=== PATIENT | female | born 1950 ===

== ENCOUNTER 2024-10-14 14:52 | Emergency (ER) | payer MEDICARE, SELFPAY ==
--- OUTSIDE RECORDS SUMMARY | 2024-10-14 14:54 | XMS_ITS | Clinical Summary ---
Author Organization [facility] Address [address] [place] [address] Phone Care Team Providers Care Software Test Specialist Name Role Phone Saulo Chin MD Primary Care Provider [phone] Allergies No known active allergies Medications metoprolol tartrate (LOPRESSOR) 50 MG TabletIndicatio ns:Hypertension Take 50 mg by mouth 2 times daily. Indications: High Blood Pressure Active atorvastatin (LIPITOR) 20 MG Tablet TAKE 1 TABLET BY MOUTH ONCE DAILY 0 Active alendronate (FOSAMAX) 70 MG Tablet TAKE 1 TABLET BY MOUTH ONCE A WEEK 0 Active Cholecalciferol (Vitamin D) 125 MCG (5000 UT) CapsuleIndicati ons:Vitamin D deficiency Take 125 mcg by mouth daily. 90 Cap 1 0 Active aspirin EC 81 MG Tablet Delayed Response Take 81 mg by mouth daily. Active famotidine (PEPCID) 20 MG TabletIndicatio ns:Gastroesopha geal reflux disease, unspecified whether esophagitis present [The details of the medication are not available because there are pending changes by a home health clinician.] 90 Tablet 3 1 Active Additional Information Patient taking differently:20 mg OralDAILY, Reported on 07/31/2024 Acetaminophen 325 MG Capsule Take 325 Tablets by mouth every 4 hours as needed for Other. Active AMLODIPINE BENZOATE PO Take 10 mg by mouth daily. Active ALPRAZolam (XANAX) 0.5 MG Tablet Take 0.5 mg by mouth 3 times daily as needed for Anxiety. Active predniSONE (DELTASONE) 5 MG Tablet Take 5 mg by mouth daily. Active lisinopril (PRINIVIL, ZESTRIL) 20 MG TabletIndicatio ns:Hypertension Take 40 mg by mouth daily. Indications: High Blood Pressure 5 Active Sennosides-Docu sate Sodium (SENEXON-S PO) Take 50 Tablets by mouth 2 times daily as needed for Other. Active guaiFENesin (ROBITUSSIN) 100 MG/5ML Liquid Take 100 mg by mouth 4 times daily as needed for Cough. Active Krill Oil 500 MG Capsule Take 500 Tablets by mouth daily. Active nicotine (NICODERM CQ) 21 MG/24HR PATCH 24 HR 1 Patch by Transdermal route every 24 hours. Active ipratropium-alb uterol (DUO-NEB) 0.5-2.5 (3) MG/3ML Solution 3 mL by Nebulization route every 6 hours as needed for Shortness of Breath or Wheezing. Active Active Problems Problem Noted Date Diagnosed Date Acute hypokalemia 06/23/2020 Syncope and collapse 06/23/2020 Tobacco dependence syndrome 06/23/2020 Hyperlipemia 06/23/2020 Hypotension 06/23/2020 Elevated d-dimer 06/23/2020 Hyponatremia 06/23/2020 Hypochloremia 06/23/2020 Dehydration 06/23/2020 CKD (chronic kidney disease) stage 3, GFR 30-59 ml/min 06/23/2020 REYNALDO (acute kidney injury) 06/23/2020 Acute cystitis 06/23/2020 Age-related osteoporosis wit hout current pathological fracture 06/10/2020 Bradycardia 07/02/2015 Weakness of right hand-loss of function in digit s 07/02/2015 Diarrhea 07/02/2015 HTN (hypertension) 07/02/2015 CAD (coronary artery disease ) with stents x 2 [facility] 07/02/2015 Right wrist drop 07/02/2015 Encounters Date Type Department Care Team Description 08/18/2024 11:30 AM 4[employer] GRADE TE[employer]ER Home Care Visit [facility] [address] [place] [address] Sarahi Velazquez, PT PT - OASIS DISCHARGE 08/16/2024 10:00 AM 4[employer] GRADE TEACHER Home Care Visit [address] [address] Martine Santos, TRAFFIC CHECKER PT - HOME VISIT 08/14/2024 10:00 AM 4TH GRADE TEACHER Home Care Visit [address] [address] Martine Santos, TRAFFIC CHECKER RESCHEDULED MISSED VISIT 08/10/2024 10:00 AM 4TH GRADE TEACHER Home Care Visit [address] [address] Nikky Canseco, RN SN - DISCIPLINE DISCHARGE 08/09/2024 10:00 AM 4TH GRADE TEACHER Home Care Visit [address] [address] Martine Santos, TRAFFIC CHECKER PT - HOME VISIT 08/07/2024 1:00 PM 4TH GRADE TEACHER Home Care Visit [address] [address] Nikky Canseco, RN SN - PRIORITY VISIT 08/07/2024 10:00 AM 4TH GRADE TEACHER Home Care Visit [address] [address] Martine Santos, TRAFFIC CHECKER PT - HOME VISIT 08/07/2024 Home Care Visit [address] [address] Nikky Canseco, RN CARE CONFERENCE 08/03/2024 12:00 PM 4[employer] GRADE TEACHER Home Care Visit [address] [address] Martine Santos, TRAFFIC CHECKER PT - HOME VISIT 08/01/2024 11:00 AM 4TH GRADE TEACHER Home Care Visit [address] [address] Sarahi Velazquez, PT PT - INITIAL EVALUATION 08/01/2024 Plan of Care Documentation [address] [address] 07/31/2024 10:30 AM 4TH GRADE TEACHER [facility] [address] [place] [address] Nikky Canseco, RN SN - OASIS START OF CARE 07/31/2024 [facility] [address] [place] [address] Nikky Canesco, RN TELEPHONE ENCOUNTER from Last 3 Months Immunizations Immunization Administration Dates Next Due Albumin IV 06/23/2020,06/23/2020 Influenza, High-dose, Quadrivalent 05/13/2020 Influenza, high-dose, trivalent, PF 05/13/2020,1 08/01/2018 Pneumococcal Vaccine - 13 Valent 05/13/2020 Family History Medical History Relation Name Comments Coronary Artery Disease Father Stroke Mother cerebral hemorr major Breast Cancer Sister Ovarian Cancer Sister Relation Name Status Comments Father Mother Sister Social History Tobacco Use Types Packs/Day Years Used Date Smoking Tobacco: Every Day Cigarettes 1 30 Smokeless Tobacco: Never Tobacco Cessation:Ready to Q uit: Yes; Counseling Given: Yes Alcohol Use Standard Drinks/Week Comments No 0 (1 standard drink = 0.6 oz pur e alcohol) Sexually Active Control Partners Comments Yes Comments No Sex and Gender Information Value Date Recorded Sex Assigned at Not on file Legal Sex Female 7:38 PM 4TH [employer] TE[employer] Gender Identity Not on file Sexual Orientation Not on file Occupation Industry Job Start Date Job End Date [employer] Not on file Not on file Not on file Last Filed Vital Signs Vital Sign Reading Time Taken Comments Blood Pressure 132/70 08/18/2024 11:35 AM 4TH GRADE TEACHER Pulse 72 08/18/2024 11:35 AM 4TH GRADE TEACHER Temperature 36.5 C (97.7 F) 08/18/2024 11:35 AM 4TH GRADE TEACHER Respiratory Rate 16 08/18/2024 11:35 AM 4TH GRADE TEACHER Oxygen Saturation 97% 08/18/2024 11:35 AM 4TH GRADE TEACHER Inhaled Oxygen Concentration - - Weight 52.2 kg (115 lb) 08/18/2024 11:35 AM 4TH GRADE TEACHER Height 152.4 cm (5') 07/31/2024 11:04 AM 4TH GRADE TEACHER Body Mass Index 22.46 07/31/2024 11:04 AM 4TH GRADE TEACHER Plan of Treatment Health Maintenance Due Date Last Done Comments Hepatitis C Virus (HCV) Screening 1950 TdaP Immunization 1950 Cologuard 2002 Immunochemical Fecal Occult Blood 2002 Respiratory Syncytial Virus (RSV) Immunization (Adult) (1 - Risk 60-74 years 1-dose series) 2012 Pneumococcal Immunization (50+ years) (2 of 2 - PPSV23) 07/08/2020 05/13/2020 Zoster Immunization (2 of 2) 12/08/2022 10/13/2022 Mammogram 03/09/2024 03/09/2023, 05/29/2019 SARS-COV-2 Immunization ( - season) 2024 10/13/2022, 09/19/2020, 08/22/2020 DEXA Bone Density 03/09/2025 03/09/2023, 05/29/2019 Colonoscopy 06/26/2030 06/26/2020, 08/13/2015 Colorectal Cancer Screening 06/26/2030 06/26/2020, 08/13/2015 Pneumococcal Immunization Combined Discontinued 05/13/2020 Influenza Immunization Completed , 05/13/2020, 05/13/2020, Additional history exists Hepatitis B Immunization Aged Out No longer eligible based on patient's age to complete this topic Meningococcal Immunization (ACWY) Aged Out No longer eligible based on patient's age to complete this topic Rotavirus Immunization Aged Out No lo nger eligible based on patient's age to complete this topic Insurance MEDICARE C [employer] Advance Directives * Full Code (Latest Code Status on File) Date Activated Date Inactivated Comments 08/01/2024 7:31 PM * Full Code Date Activated Date Inactivated Comments 06/23/2020 3:31 PM 06/28/2020 4:45 PM CPR-Full T reatment: FULL ARREST: Attempt Resuscitation/CPR wit intubation and mechanical ventilation. PRE-ARREST: Use entire range of life support measures to stabilize the patient. * Full Code Date Activated Date Inactivated Comments 07/03/2015 9:10 AM 07/04/2015 6:56 PM Full Code: FULL ARREST: Attempt Resuscitation/CPR and use intubation and mechanical ventilation as indicated. PRE-ARREST: Use all measures to stabilize patient. Care Teams Software Test Specialist Relationship Specialty Start Date End Date Saulo Chin MD [address] [facility] [address] [place] [address] PCP - General Family Medicine 07/01/15
--- OUTSIDE RECORDS SUMMARY | 2024-10-14 14:54 | XMS_ITS | Data Portability ---
Author Organization [facility] Roberta Muñoz Address [address] [facility] [address] Care Team Providers Care Adjunct Sociology Professor Name Role Phone SAULO RODRIGUEZ Primary Care Provider Assessment Encounter Date Assessment Date Assessment LastModified by Organization Details LastModified Time 01/28/2023 01/28/2023 Pt is stable. She and are raising a teenage granddaughter . [email or web address] Not available 02/01/2023 17:02:16 03/22/2024 03/22/2024 Due to elevated blood pressure, lisinopril is increased from 20 to 40 mg daily. [email or web address] Not available 03/27/2024 07:49:59 08/31/2024 08/31/2024 Pt is stable and gradually improving. [email or web address] Not available 09/03/2024 08:17:49 Plan of Treatment Reminders Order Date Submit Date Provider Last Modified By Organization Details Last Modified Time Details Appointments ANY 15 2024 09:00A M Saulo Rodriguez MD Not available Not available Not available Lab CMP, serum or plasma 2022 023 [facility], [address] [facility], [facility], [place], [address], 01/29/2023 08:38:57 CBC w/ auto diff 2022 023 [facility], [address] [facility], [facility], [place], [address], 01/29/2023 08:38:58 lipid panel, serum 2022 023 [facility], [address] [facility], [facility], [place], [address], 01/29/2023 08:38:56 vitamin D, 25-hydrox y, total, serum 2022 023 [facility], [address] [facility], [facility], [place], [address], 01/29/2023 08:39:01 TSH, ultra-sen sitive, serum 2022 023 [facility], [address] [facility], [facility], [place], [address], 01/29/2023 08:39:01 Referral None recorded. Procedures None recorded. Surgeries None recorded. Imaging MAMMO, screening , bilateral [facility]23 [facility], [address] [place], [address], 03/09/2023 13:57:19 bone density 2022 023 [facility] Scheduling, [address] [place], [address], 03/10/2023 00:02:38 Medication Orders nicotine 14 mg/24 hr daily transderm al patch 2024 025 [place] [address] [place] [address] [place], [id number], 08/31/2024 16:29:43 ergocalci ferol (vitamin D2) 1,250 mcg (50,000 unit) capsule 2024 025 [facility] [address] [address] [place] [address] [address] [place], [id number], 08/31/2024 16:27:09 alendrona te 70 mg tablet 2023 024 [facility] [address] [address] [place] [address] [address] [place], [id number], 03/22/2024 16:39:30 trazodone 50 mg tablet 2023 024 [email or web address] [address] In [facility], [facility] [address], [place], [place], [id number], 05/08/2024 18:31:23 metoprolo l tartrate 50 mg tablet 2023 024 [facility] [address] In [facility], [facility] [place] [address], [place], [place], [id number], 03/22/2024 16:34:02 lisinopri l 40 mg tablet 2023 024 [facility] [address] In [facility], [facility] [place] [address], [place], [place], [id number], 03/27/2024 07:48:39 lisinopri l 20 mg tablet 2022 023 [email or web address] [facility] [address] In [facility], [facility] [place] [address], [place], [place], [id number], 03/22/2024 16:34:02 metoprolo l tartrate 50 mg tablet 2022 023 [email or web address] [facility] [address] In [facility], [facility] [place] [address], [place], [place], [id number], 02/01/2023 17:03:27 clonidine HCl 0.1 mg tablet 2022 023 [email or web address] Not available 10/29/2023 15:04:43 atorvasta tin 20 mg tablet 2022 023 [facility] [address] In [facility], [facility] [place] [address], [place], [place], [id number], 01/28/2023 14:18:51 Patient TargetsNo targets recorded. Patient Instructions Encounter Date Encounter Id Patient Instructions Last Modified By Organization Details Last Modified Time 01/28/2023 [id number] mammogram: about this test [email or web address] Not available 01/28/2023 14:20:00 learning about high blood pressure [email or web address] Not available 01/28/2023 14:16:46 preventing osteoporosis: care instructions [email or web address] Not available 01/28/2023 14:20:00 03/22/2024 [id number] insomnia: care instructions [email or web address] Not available 03/22/2024 16:44:06 Reason for Referral None Reported. Results Created Date Observation Date Name Description Value Unit Range Abnormal Flag Note LastModifiedBy Organization Detail LastModifiedTime 01/29/2001/29/2023 LIPID PANEL cholesterol, total 206 mg/dL 100-19 9 above high normal Not Available [facility] ([facility]) [address] [place], [address], 01/29/2023 08:38:56 01/29/20 23 01/29/2023 LIPID PANEL triglyceride s 376 mg/dL 0-149 above high normal Not Available [facility] ([facility]) [address] [place], [address], 01/29/2023 08:38:56 01/29/20 23 01/29/2023 LIPID PANEL HDL cholesterol 38 mg/dL >39 below low normal Not Available [facility] ([facility]) [address] [place], [address], 01/29/2023 08:38:56 01/29/20 23 01/29/2023 LIPID PANEL VLDL cholesterol nayla 64 mg/dL 5-40 above high normal Not Available [facility] ([facility]) [address] [place], [address], 01/29/2023 08:38:56 01/29/20 23 01/29/2023 LIPID PANEL LDL chol calc ([facility]) 104 mg/dL 0-99 above high normal Not Available [facility] ([facility]) [address] [place], [address], 01/29/2023 08:38:56 01/29/20 23 01/29/2023 COMP. METAB OLIC PANEL (14) glucose 105 mg/dL 70-99 above high normal Not Available [facility] ([facility]) [address] [place], [address], 01/29/2023 08:38:57 01/29/20 23 01/29/2023 COMP. METAB OLIC PANEL (14) BUN 16 mg/dL 8-27 Not Available [facility] ([facility]) [address] [place], [address], 01/29/2023 08:38:57 01/29/20 23 01/29/2023 COMP. METAB OLIC PANEL (14) creatinine 1.20 mg/dL 0.57-1 .00 above high normal Not Available [facility] ([facility]) [address] [place], [address], 01/29/2023 08:38:57 01/29/20 23 01/29/2023 COMP. METAB OLIC PANEL (14) eGFR 49 mL/mi n/1.7 3 >59 below low normal Not Available [facility] ([facility]) [address] [place], [address], 01/29/2023 08:38:57 01/29/20 23 01/29/2023 COMP. METAB OLIC PANEL (14) BUN/creatini ne ratio 13 12-28 Not Available [facility] ([facility]) [address] [place], [address], 01/29/2023 08:38:57 01/29/20 23 01/29/2023 COMP. METAB OLIC PANEL (14) sodium 140 mmol/ L 134-14 4 Not Available [facility] ([facility]) [address] [place], [address], 01/29/2023 08:38:57 01/29/20 23 01/29/2023 COMP. METAB OLIC PANEL (14) potassium 4.4 mmol/ L 3.5-5. 2 Not Available [facility] ([facility]) [address] [place], [address], 01/29/2023 08:38:57 01/29/20 23 01/29/2023 COMP. METAB OLIC PANEL (14) chloride 107 mmol/ L 96-106 above high normal Not Available [facility] ([facility]) [address] [place], [address], 01/29/2023 08:38:57 01/29/20 23 01/29/2023 COMP. METAB OLIC PANEL (14) carbon dioxide, total 18 mmol/ L 20-29 below low normal Not Available [facility] ([facility]) [address] [place], [address], 01/29/2023 08:38:57 01/29/20 23 01/29/2023 COMP. METAB OLIC PANEL (14) calcium 9.2 mg/dL 8.7-10 .3 Not Available [facility] ([facility]) [address] [place], [address], 01/29/2023 08:38:57 01/29/20 23 01/29/2023 COMP. METAB OLIC PANEL (14) protein, total 7.2 g/dL 6.0-8. 5 Not Available [facility] ([facility]) [address] [place], [address], 01/29/2023 08:38:57 01/29/20 23 01/29/2023 COMP. METAB OLIC PANEL (14) albumin 4.4 g/dL 3.9-4. 9 Ple ase note refer ence inter meaghan petit e Not Available [facility] ([facility]) [address] [place], [address], 01/29/2023 08:38:57 01/29/20 23 01/29/2023 COMP. METAB OLIC PANEL (14) globulin, total 2.8 g/dL 1.5-4. 5 Not Available [facility] ([facility]) [address] [place], [address], 01/29/2023 08:38:57 01/29/20 23 01/29/2023 COMP. METAB OLIC PANEL (14) A/G ratio 1.6 1.2-2. 2 Not Available [facility] ([facility]) [address] [place], [address], 01/29/2023 08:38:57 01/29/20 23 01/29/2023 COMP. METAB OLIC PANEL (14) bilirubin, total 0.3 mg/dL 0.0-1. 2 Not Available [facility] ([facility]) [address] [place], [address], 01/29/2023 08:38:57 01/29/20 23 01/29/2023 COMP. METAB OLIC PANEL (14) alkaline phosphatase 115 IU/L 44-121 Not Available [facility] ([facility]) [address] [place], [address], 01/29/2023 08:38:57 01/29/20 23 01/29/2023 COMP. METAB OLIC PANEL (14) AST (SGOT) 25 IU/L 0-40 Not Available [facility] ([facility]) [address] [place], [address], 01/29/2023 08:38:57 01/29/20 23 01/29/2023 COMP. METAB OLIC PANEL (14) ALT (SGPT) 14 IU/L 0-32 Not Available [facility] ([facility]) [address] [place], [address], 01/29/2023 08:38:57 01/29/20 23 01/29/2023 CBC WITH DIFFE RENTI AL/PL ATELE T WBC 7.1 x10e3 /uL 3.4-10 .8 Not Available [facility] ([facility]) [address] [facility], [place], [address], 01/29/2023 08:38:58 01/29/20 23 01/29/2023 CBC WITH DIFFE RENTI AL/PL ATELE T RBC 4.72 x10e6 /uL 3.77-5 .28 Not Available [facility] ([facility]) [address] [facility], [place], [address], 01/29/2023 08:38:58 01/29/20 23 01/29/2023 CBC WITH DIFFE RENTI AL/PL ATELE T hemoglobin 13.8 g/dL 11.1-1 5.9 Not Available [facility] ([facility]) [address] [place], [address], 01/29/2023 08:38:58 01/29/20 23 01/29/2023 CBC WITH DIFFE RENTI AL/PL ATELE T hematocrit 41.6 % 34.0-4 6.6 Not Available [facility] ([facility]) [address] [place], [address], 01/29/2023 08:38:58 01/29/20 23 01/29/2023 CBC WITH DIFFE RENTI AL/PL ATELE T MCV 88 fL 79-97 Not Available [facility] ([facility]) [address] [place], [address], 01/29/2023 08:38:58 01/29/20 23 01/29/2023 CBC WITH DIFFE RENTI AL/PL ATELE T MCH 29.2 pg 26.6-3 3.0 Not Available [facility] ([facility]) [address] [place], [address], 01/29/2023 08:38:58 01/29/20 23 01/29/2023 CBC WITH DIFFE RENTI AL/PL ATELE T MCHC 33.2 g/dL 31.5-3 5.7 Not Available [facility] ([facility]) [address] [facility], [place], [address], 01/29/2023 08:38:58 01/29/20 23 01/29/2023 CBC WITH DIFFE RENTI AL/PL ATELE T RDW 13.1 % 11.7-1 5.4 Not Available [facility] ([facility]) [address] [facility], [place], [address], 01/29/2023 08:38:58 01/29/20 23 01/29/2023 CBC WITH DIFFE RENTI AL/PL ATELE T platelets 218 x10e3 /uL 150-45 0 Not Available [facility] ([facility]) [address] [facility], [place], [address], 01/29/2023 08:38:58 01/29/20 23 01/29/2023 CBC WITH DIFFE RENTI AL/PL ATELE T neutrophils 63 % notest ab. Not Available [facility] ([facility]) [address] [facility], [place], [address], 01/29/2023 08:38:58 01/29/20 23 01/29/2023 CBC WITH DIFFE RENTI AL/PL ATELE T lymphs 28 % notest ab. Not Available [facility] ([facility]) [address] [facility], [place], [address], 01/29/2023 08:38:58 01/29/20 23 01/29/2023 CBC WITH DIFFE RENTI AL/PL ATELE T monocytes 6 % notest ab. Not Available [facility] ([facility]) [address] [facility], [place], [address], 01/29/2023 08:38:58 01/29/20 23 01/29/2023 CBC WITH DIFFE RENTI AL/PL ATELE T eos 2 % notest ab. Not Available [facility] ([facility]) [address] [facility], [place], [address], 01/29/2023 08:38:58 01/29/20 23 01/29/2023 CBC WITH DIFFE RENTI AL/PL ATELE T basos 1 % notest ab. Not Available [facility] ([facility]) [address] [facility], [place], [address], 01/29/2023 08:38:58 01/29/20 23 01/29/2023 CBC WITH DIFFE RENTI AL/PL ATELE T neutrophils (absolute) 4.5 x10e3 /uL 1.4-7. 0 Not Available [facility] ([facility]) [address] [facility], [place], [address], 01/29/2023 08:38:58 01/29/20 23 01/29/2023 CBC WITH DIFFE RENTI AL/PL ATELE T lymphs (absolute) 2.0 x10e3 /uL 0.7-3. 1 Not Available [facility] ([facility]) [address] [facility], [place], [address], 01/29/2023 08:38:58 01/29/20 23 01/29/2023 CBC WITH DIFFE RENTI AL/PL ATELE T monocytes(ab solute) 0.4 x10e3 /uL 0.1-0. 9 Not Available [facility] ([facility]) [address] [facility], [place], [address], 01/29/2023 08:38:58 01/29/20 23 01/29/2023 CBC WITH DIFFE RENTI AL/PL ATELE T eos (absolute) 0.2 x10e3 /uL 0.0-0. 4 Not Available [facility] ([facility]) [address] [facility], [place], [address], 01/29/2023 08:38:58 01/29/20 23 01/29/2023 CBC WITH DIFFE RENTI AL/PL ATELE T baso (absolute) 0.0 x10e3 /uL 0.0-0. 2 Not Available [facility] ([facility]) [address] [facility], [place], [address], 01/29/2023 08:38:58 01/29/20 23 01/29/2023 CBC WITH DIFFE RENTI AL/PL ATELE T immature granulocytes 0 % notest ab. Not Available [facility] ([facility]) [address] [facility], [place], [address], 01/29/2023 08:38:58 01/29/20 23 01/29/2023 CBC WITH DIFFE RENTI AL/PL ATELE T immature grans (abs) 0.0 x10e3 /uL 0.0-0. 1 Not Available [facility] ([facility]) [address] [facility], [place], [address], 01/29/2023 08:38:58 01/29/20 23 01/29/2023 TSH TSH 2.910 uIU/m L 0.450- 4.500 Not Available [facility] ([facility]) [address] [place], [address], 01/29/2023 08:39:00 01/29/20 23 01/29/2023 VITAM IN D, 25-HY DROXY vitamin D, 25-hydroxy 18.3 NG/mL 30.0-1 00.0 below low normal Vitam in D defic iency has been defin ed by the Insti tute of Medic ine and an Endoc rine Socie ty pract ice guide line as a level of serum 25-OH vitam in D less than 20 ng/mL (1,2) . The Endoc rine Socie ty went on to furth er defin e vitam in D insuf ficie ncy as a level betwe en 21 and 29 ng/mL (2). 1. IOM (Inst itute of Medic ine). 2010. Dieta ry refer ence herve es for calci um and D. Lyndsey tucker [place]: The Natio nal [employer] m[employer] . 2. Holic elvia [place], Albert ey [place], Manuel off-F errar i [place], et al. Evalu ation , treat ment, and preve ntion of vitam in D defic iency : an Endoc rine Socie ty clini nayla pract ice guide line. JCEM. 2010; 96(7) :1911 -30. Not Available [facility] ([facility]) [address] [facility], [place], [address], 01/29/2023 08:39:01 03/09/2003/09/2023 MAMMO , scree alexis, bilat eral No observ ation record ed. [address] [place], [address], 03/17/2023 15:32:44 03/10/20 23 03/09/2023 bone densi ty No observ ation record ed. [address] [place], [address], 03/17/2023 15:32:44 Result Notes None recorded. Problems Name Problem SNOMED Code Status Onset Date Resolution Date Notes Provider Name and Address Organization Details Recorded Time Hypertensive disorder 21103307 Active Saulo Rodriguez MD Attn: Naresh mixon,[address] [facility], [place], [address], [facility] - [facility] 6 23:48:38 Anxiety 26710817 Active Chiquis Brush MA [facility], [place] - [facility] 4 16:09:58 Dyslipidemia 556562626 Active Saulo Rodriguez MD Attn: Naresh mixon,[address] [facility], [place], [address], [place] - [facility] 5 11:17:30 Diarrhea 53837269 Active Saulo Rodriguez MD Attn: Naresh mixon,[address] [facility], [place], [address], [facility] - [facility] 6 17:55:26 Hypokalemia 75793606 Active Saulo Rodriguez MD Attn: Naresh mixon,[address] [facility], [place], [address], [place] - [facility] 6 13:23:45 Upper respiratory infection 81351798 Active Saulo Rodriguez MD Attn: Naresh mixon,[address] [facility], [place], [address], [place] - [facility] 5 13:07:49 Otalgia 12825782 Active Saulo Rodriguez MD Attn: Naresh mixon,[address] [facility], [place], [address], [place] - [facility] 6 14:05:50 Hyperkalemia 42158124 Active Saulo Rodriguez MD Attn: Naresh mixon,[address] [facility], [place], [address], [place] - [facility] 6 16:33:37 Plantar fasciitis 104408279 Active Saulo Rodriguez MD Attn: Naresh mixon,[address] [facility], [place], [address], [place] - [facility] 6 23:48:38 Problem Notes None recorded. Procedures Surgical History Date Name Laterality Status Provider Name and Address Organization Details Recorded Time Total hysterectomy completed Sarika Hathaway LPN [facility] 03/04/2018 14:11:41 Imaging Results Imaging Date Name Status LastModified by Organiz ation Details LastModified Time 03/09/2023 MAMMO, screening, bilateral completed [email or web address] Hassan [address] [place], [address], 03/17/2023 15:32:44 03/09/2023 bone density completed [email or web address] [place] [address] [place], [address], 03/17/2023 15:32:44 Procedure Notes None recorded. Medical Equipment None Reported. Allergies No known drug allergies Medications Name Sig Start Date Stop Date Status Note LastModified by Organization Details LastModified Time amoxicillin 500 mg capsule 11/18 completed Not Available Not Available Not Available sodium chloride 5 % eye drops INSTILL 1 DROP INTO BOTH EYES DAILY active Not Available Not Available No t Available bupropion HCl SR 150 mg tablet,12 hr sustained-r elease Take 1 tablet twice a day by oral route for 30 days. 06/29 completed Not Available Not Available Not Available potassium chloride ER 10 mEq capsule,ext ended release TAKE 1 CAPSULE BY MOUTH TWICE DAILY 01/28 completed Not Available Not Available Not Available clonidine HCl 0.1 mg tablet Take 1 tablet by oral route. 10/28 completed Not Available Not Available Not Available acetaminoph en 325 mg tablet TAKE 2 TABLETS BY MOUTH EVERY 4 HOURS NEEDED FOR PAIN active Not Available Not Available No t Available atorvastati n 20 mg tablet TAKE 1 TABLET BY MOUTH EVERY DAY active Not Available Not Available No t Available nicotine 14 mg/24 hr daily transdermal patch Apply 1 patch every day by transderm al route for 30 days. 2024 active Not Available Not Available Not Avai lable ipratropium 0.5 mg-albutero l 3 mg (2.5 mg base)/3 mL nebulizatio n soln TAKE 3 ML BY NEBULIZAT ION EVERY 6 HOURS NEEDED FOR WHEEZING OR SHORTNESS OF BREATH active Not Available Not Available No t Available Klor-Con 10 mEq tablet,exte nded release Take 2 tablets 4 times a day by oral route for 30 days. 11/18 completed Not Available Not Available Not Available trazodone 50 mg tablet TAKE 1 TABLET BY MOUTH EVERY DAY AT BEDTIME NEEDED FOR 30 DAYS active Not Available Not Available No t Available hydrocodone 5 mg-acetamin ophen 325 mg tablet 07/18 completed Not Available Not Available Not Available lisinopril 20 mg tablet TAKE 1 TABLET BY MOUTH EVERY DAY active Not Available Not Available No t Available prednisone 20 mg tablet 11/18 completed Not Available Not Available Not Available alendronate 70 mg tablet TAKE 1 TABLET BY MOUTH ONE TIME PER WEEK active Not Available Not Available No t Available prednisone 5 mg tablet PLEASE SEE ATTACHED FOR DETAILED DIRECTION S 08/31 completed Not Available Not Available Not Available acetaminoph en 300 mg-codeine 30 mg tablet Take 1 tablet twice a day by oral route as needed. 11/18 completed Not Available Not Available Not Available sulfamethox azole 800 mg-trimetho prim 160 mg tablet Take 1 tablet every 12 hours by oral route. active Not Available Not Available No t Available guaifenesin 100 mg/5 mL oral liquid TAKE 10 ML BY MOUTH EVERY 6 HOURS 08/31 completed Not Available Not Available Not Available amoxicillin 500 mg tablet Take 1 tablet 3 times a day by oral route. 03/04 completed Not Available Not Available Not Available dexamethaso ne sodium phosphate 0.1 % eye drops 07/18 completed Not Available Not Available Not Available Tessalon Perles 100 mg capsule Take 1 capsule 3 times a day by oral route as needed for 10 days. 03/04 completed Not Available Not Available Not Available alprazolam 0.5 mg tablet TAKE 1 TABLET BY MOUTH THREE TIMES A DAY NEEDED FOR ANXIETY active Not Available Not Available No t Available famotidine 20 mg tablet TAKE 1 TABLET BY MOUTH EVERY DAY 2024 active Not Available Not Available Not Avai lable amlodipine 10 mg tablet TAKE 1 TABLET BY MOUTH EVERY DAY active Not Available Not Available No t Available tobramycin 0.3 % eye drops 07/18 completed Not Available Not Available Not Available metoprolol tartrate 50 mg tablet TAKE 1 TABLET TWICE A DAY BY ORAL ROUTE FOR 90 DAYS. active Not Available Not Available No t Available nicotine 21 mg/[address] daily transdermal patch PLACE 1 PATCH ON THE SKIN DAILY FOR 10 DAYS 2024 active Not Available Not Available Not Avai lable omeprazole 20 mg capsule,del ayed release TAKE 1 CAPSULE BY MOUTH DAILY 01/28 completed Not Available Not Available Not Available amoxicillin 250 mg capsule 01/28 completed Not Available Not Available Not Available montelukast 10 mg tablet TAKE 1 TABLET BY MOUTH ONCE DAILY 01/28 completed Not Available Not Available Not Available hydrochloro thiazide 25 mg tablet TAKE 1 TABLET BY MOUTH ONCE DAILY 07/18 completed Not Available Not Available Not Available ergocalcife rol (vitamin D2) 1,250 mcg (50,000 unit) capsule TAKE 1 CAPSULE BY MOUTH ONE TIME PER WEEK active Not Available Not Available No t Available ibuprofen 600 mg tablet Take 1 tablet 3 times a day by oral route as needed for 10 days. 11/18 completed Not Available Not Available Not Available polyethylen e glycol 3350 17 gram/dose oral powder active Not Available Not Available Not Available albuterol sulfate HFA 90 mcg/actuati on aerosol inhaler Inhale 2 puffs 4 times a day by inhalatio n route as needed. 01/28 completed Not Available Not Available Not Available lisinopril 40 mg tablet TAKE 1 TABLET BY MOUTH EVERY DAY active Not Available Not Available No t Available ondansetron 4 mg disintegrat ing tablet 07/18 completed Not Available Not Available Not Available diazepam 5 mg tablet 06/29 completed Not Available Not Available Not Available cholestyram ine (with sugar) 4 gram powder for susp in a packet DISSOLVE IN LIQUID & TAKE 1 PACKET BY MOUTH DIRECTED TWICE DAILY WITH MEALS 01/28 completed Not Available Not Available Not Available nitrofurant oin monohydrate /macrocryst als 100 mg capsule Take 1 capsule every 12 hours by oral route for 7 days. 11/18 completed Not Available Not Available Not Available Calcium with Vitamin D 600 mg-10 mcg (400 unit) tablet Take 1 tablet twice a day by oral route. 03/22 completed Not Available Not Available Not Available Senexon-S 8.6 mg-50 mg tablet TAKE 1 TABLET BY MOUTH TWICE A DAY 08/31 completed doesn 't take Not Available Not Available Not Available Prevnar 13 (PF) 0.5 mL intramuscul ar syringe PHARMACIS T ADMINISTE RED IMMUNIZAT ION ADMINISTE RED AT TIME OF DISPENSIN G 01/28 completed Not Available Not Available Not Available Prolia 60 mg/mL subcutaneou s syringe inject 1 ml subcutane ously now, repeat [id number] 07/18 completed Not Available Not Available Not Available Chantix Starting Month Box 0.5 mg (11)-1 mg (42) tablets in dose pack take as directed 11/23 completed Not Available Not Available Not Available Fluzone High-Dose Quad 2019- (PF) 240 mcg/0.7 mL IM syringe PHARMACIS T ADMINISTE RED IMMUNIZAT ION ADMINISTE RED AT TIME OF DISPENSIN G 01/28 completed Not Available Not Available Not Available COVID-19 At-Home Test kit REFER TO MANUFACTU RER INSTRUCTI ONS INCLUDED IN PACKAGING 01/28 completed Not Available Not Available Not Available Vitals Date Recorded Body weight Body mass index (BMI) Body height Body temperature Respiratory rate Oxygen saturation Oxygen saturation in Arterial blood by Pulse oximetry Heart rate Provider Name and Address Organization Details Last Updated DateTime 3 21699.8 3 g 24.8 kg/m2 152.4 cm 98.3 [degF] 16 /min 99 % 99 % 83 /min Maritza Powers MA [facility] 3 14:11:35 Date Recorded Systolic blood pressure Diastolic blood pressure Provider Name and Address Organization Details Last Updated DateTime 01/28/2023 220 mm[Hg] 100 mm[Hg] Saulo Rodriguez MD Attn: [address] [place], [address], [facility] 01/28/2023 14:26:03 Date Recorded Body height Body mass index (BMI) Body weight Oxygen saturation Oxygen saturation in Arterial blood by Pulse oximetry Heart rate Body temperature Respiratory rate Systolic blood pressure Diastolic blood pressure Provider Name and Address Organization Details Last Updated DateTime 4 152.4 cm 24.8 kg/m2 61143.2 8 g 95 % 95 % 63 /min 98.3 [degF] 16 /min 236 mm[Hg] 100 mm[Hg] Concepcion Hawley MA [facility] 4 16:13:50 Date Recorded Body height Body mass index (BMI) Body weight Respiratory rate Body temperature Oxygen saturation Oxygen saturation in Arterial blood by Pulse oximetry Heart rate Provider Name and Address Organization Details Last Updated DateTime 5 152.4 cm 22.5 kg/m2 67676.5 2 g 16 /min 97.3 [degF] 97 % 97 % 65 /min Maritza Powers MA [facility] 5 16:00:15 Date Recorded Systolic blood pressure Diastolic blood pressure Provider Name and Address Organization Details Last Updated DateTime 08/31/2024 156 mm[Hg] 60 mm[Hg] Saulo Rodriguez MD Attn: [address]ing[address] [place], [address], [facility] 08/31/2024 16:26:40 Social History Question Answer Notes LastModified by Organizat ion Details LastModified Time Tobacco Smoking Status Former Smoker Jul 2024 Maritza Powers MA [facility], [facility] 08/31/2024 15:57:33 Do You Have An Advance Directive? No Information not available 07/18/2020 What Is Your Level Of Alcohol Consumption? None Information not available 07/18/2020 Are You Blind Or Do You Have Difficulty Seeing? Yes Glasses Information not available 03/22/2024 What Is Your Level Of Caffeine Consumption? Moderate Soda And Tea Everyday Information not available 07/18/2020 How Much Tobacco Do You Chew? None Information not available 07/18/2020 In The 14 Days Before Symptom Onset, Have You Had Close Contact With A Laboratory-confi rmed COVID-19 While That Case Was Ill? No Information not available 07/18/2020 In The 14 Days Before Symptom Onset, Have You Had Close Contact With A Person Who Is Under Investigation For COVID-19 While That Person Was Ill? No Information not available 07/18/2020 Have You Been To An Area Known To Be High Risk For COVID-19? No Information not available 07/18/2020 Are You Currently Employed? No Information not available 03/22/2024 Are You Deaf Or Do You Have Serious Difficulty Hearing? No Information not available 03/22/2024 What Type Of Diet Are You Following? GLUTENFREE Just Started In 2019 Information not available 07/18/2020 Which Illicit Or Recreational Drugs Have You Used? No Information not available 07/18/2020 Do You Or Have You Ever Used E-cigarettes Or Vape? Never Used Electronic Cigarettes Information not available 06/29/2019 Education 12 Information no t available 07/18/2020 What Is Your Occupation? Retired Information not available 07/18/2020 Are There Any Guns Present In Your Home? No Information not available 07/18/2020 Hard Of Hearing Or Deaf In One Or Both Ears? No Information not available 07/18/2020 Legally Blind In One Or Both Eyes? No Information not available 07/18/2020 Marital Status Informatio n not available 07/18/2020 What Was The Date Of Your Most Recent Tobacco Screening? 08/31/2024 Information not available 08/31/2024 How Many Children Do You Have? 3 Information not available 03/22/2024 What Is Your Current Pack Years? 30ormorepacky ears Information not available 03/22/2024 Performs Monthly Self-breast Exam? Yes Information not available 07/18/2020 What Is Your Relationship Status? Information not available 03/22/2024 Do You Use Your Seat Belt Or Car Seat Routinely? Yes Information not available 03/22/2024 Seat Belts Used Routinely Yes Information not available 07/18/2020 Smoke Alarm In Home Yes Information not available 07/18/2020 Do You Have Smoke And Carbon Monoxide Detectors In Your Home? Yes Information not available 03/22/2024 At What Age Did You Start Smoking Tobacco? 32 Information not available 03/22/2024 Are You Passively Exposed To Smoke? No Information not available 03/22/2024 Do You Or Have You Ever Used Smokeless Tobacco? Never Used Smokeless Tobacco Information not available 06/29/2019 How Much Tobacco Do You Smoke? 1 PPD [email or web address] Information not available 03/04/2018 Do You Feel Stressed (tense, Restless, Nervous, Or Anxious, Or Unable To Sleep At Night)? [id number] Information not available 03/22/2024 Do You Use Any Illicit Or Recreational Drugs? No Information not available 03/22/2024 Do You Use Sunscreen Routinely? No Information not available 07/18/2020 Has Tobacco Cessation Counseling Been Provided? No Information not available 03/22/2024 On What Date Was Tobacco Cessation Counseling Provided? 08/31/2024 Information not available 08/31/2024 How Many Years Have You Smoked Tobacco? 41 03/22/24 Information not available 03/22/2024 Do You Or Have You Ever Used Any Other Forms Of Tobacco Or Nicotine? No Information not available 03/22/2024 Sex: Female Functional Status Question Answer Note LastModified by Organizat ion Details LastModified Time Are you able to care for yourself? Yes Information not available 03/22/2024 What is your exercise level? Occasional Information not available 07/18/2020 Mental Status None recorded. Family History Relationship Description Onset Age of this Age Resolved Age Notes LastModified by Organization Details LastModified Time Mother History of cerebrovascu lar accident amcmanis Not available 16:09:58 Notes:no changes reported 07/18/20, 01/28/23, 03/22/24, 08/31/24 Medical History Condition Response Anxiety Disorder Y Hypertension Y Gynecological History Statement/Question Response Date of LMP LMP Definite Obstetrics History GPAL:G 0 P 0 0 0 0 Immunizations Vaccine Type Date Status Note Provider Nam e and Address Organization Details Recorded Time Influenza, split virus, quadrivalent, preservative 0 completed [place]Y [place], [place] - [facility] 07/18/2020 14:31:34 Pneumococcal conjugate PCV 13 0 completed [place], [place] [facility] 07/18/2020 14:31:54 COVID-19, mRNA, LNP-S, PF, 100 mcg/0.5mL dose or 50 mcg/0.25mL dose 1 completed Sara Hurley [place], [place] [facility] 08/22/2020 13:44:53 COVID-19, mRNA, LNP-S, PF, 100 mcg/0.5mL dose or 50 mcg/0.25mL dose 1 completed [place]Y [place], [place] [facility] 09/19/2020 12:04:00 Past Encounters Encounter ID Performer Location Encounter Start Date Encounter Closed Date Diagnosis/Indication Diagnosis SNOMED-CT Code Diagnosis ICD10 Code Diagnosis Note [id number] Tran Rollins [facility] [address] [place] [address] 04/08/2015 16:18:51 04/09/2015 08:02:05 Hypertensive disorder 29760632 Dyslipidemia 838245051 [facility] examination [id number] [facility] [id number] Saulo Rodriguez MD [place] [address] [place] [address] 07/17/2015 15:15:48 07/18/2015 08:08:51 Hypokalemia 30645603 E87.6 Hypertensive disorder 38 284051 I10 Diarrhea 79770214 R19.7 [id number] Maritza Powers [place] [address] [place] [address] 08/13/2015 16:04:46 08/14/2015 09:23:17 Hypertensive disorder 72675052 I10 [id number] Saulo Rodriguez MD [place] [address] [place] [address] 1 08/28/2015 16:16:35 08/29/2015 08:24:33 Hypertensive disorder 00587812 I10 Plantar fasciitis 831785 003 M72.2 [id number] Saulo Rodriguez MD [place] [address] [place] [address] 1 11/19/2016 16:20:03 11/20/2016 11:54:57 Dyslipidemia 700939913 E78.5 Hypertensive disorder 38 508704 I10 Smoker 82872483 F17.046 [id number] Saulo Rodriguez MD [place] [address] [place] [address] 11/18/2017 16:15:53 11/22/2017 13:58:36 Acute bronchitis 46529446 J20.9 [facility] examination 884910648 Z00.00 Essential hypertension 92366552 I10 Hypertensive disorder 38 174723 I10 Dyslipidemia 767107523 E 78.5 Cough 08929143 R05 [id number] MD Katya Ash [address] [place] [address] 03/04/2018 13:54:51 03/05/2018 10:58:14 Urinary symptoms 056588856 R39.9 [id number] MD Katya Ash 14 IM [address] [facility] [place] [address] 11/18/2018 15:54:50 11/21/2018 09:54:57 Hypertensive disorder 47720543 I10 Screening mammography 24 196839 Z12.31 Dyslipidemia 842397933 E 78.5 Dyspnea 663424553 R06.00 Adult heal th examination 504686820 Z00.00 Allergic rhinitis 827122 04 J30.9 Trying to give up smoking 988364841 Z72.0 [id number] MD Katya Ash [address] [place] [address] 06/29/2019 15:41:19 07/04/2019 10:24:09 Osteoporosis 84526754 M81.0 Smoker 16504000 F17.200 Gastroesop hageal reflux disease 065590756 K21.9 [id number] MD Katya Ash 14 IM [address] [place] [address] 07/18/2020 09:22:14 07/22/2020 10:32:11 History of fall 021100626 Z91.81 Anemia 093943287 D64.9 Hypokalemia 18650591 E87 .6 Hypomagnesemia 654248758 E83.42 Celiac disease 840166507 K90.0 Essential hypertension 01651613 I10 [id number] ANTONIO Bai [address] [place] [address] 08/22/2020 10:37:39 08/23/2020 08:29:55 Administration of SARS-CoV-2 antigen vaccine 893774953 Z23 [id number] ANTONIO Bai 14 IM [address] [place] [address] 09/19/2020 10:27:16 09/20/2020 15:39:58 Administration of SARS-CoV-2 antigen vaccine 020874541 Z23 [id number] MD Katya Ash 14 IM [address] [place] [address] 01/28/2023 13:52:32 02/02/2023 11:24:20 Essential hypertension 88072886 I10 Hyperlipidemia 74273789 E78.5 Screening mammography 24 063488 Z12.31 At [facility] risk of osteoporosis 914346687 Z91.89 Screening for malignant neoplasm of colon 010636131 Z12.11 done on 06-18-2020 [id number] MD Katya Ash 14 IM [address] [place] [address] 03/22/2024 15:47:37 03/28/2024 09:27:05 Tetanus diphtheria and acellular pertussis vaccination declined 2801094668 4022736 Z28.20 03/22/24 Pneumococc al vaccination declined 800214942 Z28.21 03/22/24 SARS-CoV-2 mRNA vaccine declined 4145254084 Z28.03/22/24 Essential hypertension 11654761 I10 Osteoporosis 10167626 M8 1.0 Screening for malignant neoplasm of colon 278140305 Z12.11 done on 06-18-2020 Insomnia 817607915 G47.0 0 [id number] MD Katya Ash 14 IM [address] [facility] [place] [address] 08/31/2024 15:47:50 09/04/2024 15:32:36 Vitamin D deficiency 25188994 E55.9 Ex-smoker 2058735 Z87.89 1 History of acute respiratory failure 1438169606 3152716 Z87.09 now stable since hospitaliz ation from 07-10-24 through 07-28-24 Health Concerns Section Related Observation LastModified by Organization Detai ls LastModified Time None Recorded Concern Status LastModified by Organization Details LastModified Time None Recorded Advance Directives Directive N: Payers Encounter Date Sequence Insurance Name Policy Number Policy Rojo Covered Member ID Rojo Member ID Guarantor Name 08/22/2020 2 [place] Amira K Lair [id number] Amira Lair 08/22/2020 2 [employer] (MEDICARE SUPPLEMENT) Amira Lair [id number] Amira Lair 09/19/2020 2 [place] Amira K Lair [id number] Amira Lair 09/19/2020 2 [employer] (MEDICARE SUPPLEMENT) Amira Lair [id number] Amira Lair 01/28/2023 2 [place] Amira K Lair [id number] Amira Lair 01/28/2023 2 [employer] (MEDICARE SUPPLEMENT) Amira Lair [id number] Amira Lair 03/22/2024 2 [place] Amira Jasmine Lair [id number] Amira Lair 03/22/2024 3 [employer] (MEDICARE SUPPLEMENT) PLAN G Amira Lair [id number] Amira Lair 08/31/2024 2 [place] Amira Jasmine Lair [id number] Amira Lair 08/31/2024 1 [employer] (MEDICARE REPLACEMENT/ ADVANTAGE - HMO) [id number] Amira Lair [id number] Amira Lair Notes Date Note Type Note Provider Name and Address Organization Details Recorded Time 01/28/2023 text/html First visit [facility] e June 2019. Pt presents for a regular checkup. Saulo Rodriguez MD Attn: [address]ing[address] [place], [address], [facility] 02/01/2023 17:03:31 03/22/2024 text/html Annual checkup, last visit being 14 months ago. Sauol Rodriguez MD Attn: Accounting[address] [place], [address], [place] [facility] 03/27/2024 07:52:22 08/31/2024 text/html Pt presents for followup after recent hospitalization for respiratory failure after falling ill with influenza. She has since quit smoking. Saulo Rodriguez MD Attn: [address] [place], [address], [facility] 09/03/2024 08:18:07 OBGyn Episode No OBEpisode recorded.
--- OUTSIDE RECORDS SUMMARY | 2024-10-14 14:54 | XMS_ITS | Clinical Summary ---
Author Organization [facility] Address [address] [place] [address] Care Team Providers Care Wood Milling Machine Hand Name Role Phone Saulo Chin MD Primary Care Provider [phone] Source Comments [facility],non-owned Affiliates and Associated Physician Practices is amultiple site organization consisting of ambulatory clinics and hospital sitesin [place], [place], [place] and [place]. This disclosure is being madepursuant to the Care Everywhere program and may not contain all information available regarding this patient. Last updated 18.[facility] Allergies No known active allergies Medications * Be aware that medications may not be up to date on this document. Alwaysverify current medications with the patient. Medication Sig Dispensed Refills Start Date End Date Status HYDROCHLOROTHIAZIDE PO Active atorvastatin (LIPITOR) 20 MG tablet Take 1 (one) tablet by mouth at bedtime Active Metoprolol Succinate 50 MG CS24 Take 50 mg by mouth 2 times daily Active LISINOPRIL PO Take 20 mg by mouth once daily Active Aspirin (ASPIR-81 PO) Active albuterol HFA (PROVENTIL;VENTOLIN; PROAIR) 108 (90 BASE) MCG/ACT inhalerIndications:A cute bronchitis, unspecified organism Inhale 2 puffs by mouth every 4 hours as needed for Wheezing 1 Inhaler 03/24/2018 Active benzonatate (TESSALON) 100 MG capsuleIndications:C ough Take 1 capsule by mouth 3 times daily as needed for Cough Reasons: Cough 30 capsule 03/24/2018 Active Social History Tobacco Use Types Packs/Day Years Used Date Smoking Tobacco: Every Day Cigarettes 1 20 Smokeless Tobacco: Never Sex and Gender Information Value Date Recorded Sex Assigned at Not on file Gender Identity Not on file Sexual Orientation Not on file Last Filed Vital Signs Vital Sign Reading Time Taken Comments Blood Pressure 169/71 03/29/2023 6:00 PM CDT Pulse 72 03/29/2023 4:35 PM CDT Temperature 36.4 C (97.5 F) 03/29/2023 3:04 PM CDT Respiratory Rate 18 03/29/2023 4:35 PM CDT Oxygen Saturation 95% 03/29/2023 6:16 PM CDT Inhaled Oxygen Concentration - - Weight 54.4 kg (120 lb) 03/29/2023 3:04 PM CDT Height 152.4 cm (5') 03/29/2023 3:04 PM CDT Body Mass Index 23.44 03/29/2023 3:04 PM CDT Plan of Treatment Health Maintenance Due Date Last Done Comments BONE DENSITY TESTING 1950 COLOGUARD (AGES 45-75) - COL ON CA SCREENING 1952 COLON MONITORING 1952 COLONOSCOPY - COLON CA SCREENING 1952 CT COLONOGRAPHY - COLON CA SCREENING 1952 Colorectal Cancer Screening 1952 FIT - COLON CA SCREENING 1952 FLEX SIG - COLON CA SCREENING 1950 MAMMOGRAM 1950 MEDICARE AWV 12 MONTHS 1952 HEPATITIS C SCREENING 12/06/1970 DTAP/TDAP/TD VACCINES (1 - Tdap) 12/11/1971 PNEUMOCOCCAL VACCINE 50+ (1 of 2 - PCV) 12/11/1971 LUNG CANCER SCREENING 2002 ZOSTER VACCINE (1 of 2) 2002 COVID-19 VACCINE (4 - 2023-2 5 season) 2024 10/13/2022, 09/19/2020, 08/22/2020 INFLUENZA VACCINE (#1) 2024 , 06/01/2019, 06/01/2019 DEPRESSION SCREENING 07/12/2024 Respiratory Syncytial Virus (RSV) Vaccine Pt: or over 60 yrs (1 - 1-dose 75+ series) 12/11/2027 HEPATITIS B VACCINE Aged Out No longe r eligible based on patient's age to complete this topic HIB VACCINE Aged Out No longer eligi ble based on patient's age to complete this topic HPV VACCINE Aged Out No longer eligi ble based on patient's age to complete this topic MENINGOCOCCAL (Group B) VACCINE SHARED DECISION-MAKING Aged Out No longer eligible based on patient's age to complete this topic MENINGOCOCCAL GROUPS A/C/Y/W VACCINE Aged Out No longer eligible b ased on patient's age to complete this topic Care Teams Wood Milling Machine Hand Relationship Specialty Start Date End Date Saulo Chin MD [address] [address] PCP - General Family Medicine 03/29/23
--- OUTSIDE RECORDS SUMMARY | 2024-10-14 14:55 | XMS_ITS | CONTINUITY OF CARE DOCUMENT ---
Author Name fernando king Address Unknown Organization [facility] Office Address [address] [place] [address] Phone [phone] Care Team Providers Care Occupational Analyst Name Role Phone fernando king Unavailable Unavailable
--- OUTSIDE RECORDS SUMMARY | 2024-10-14 14:55 | XMS_ITS | Clinical Summary ---
Author Organization [facility] Medical Office Building B Address [address] [place] [address] Care Team Providers Care Patient Services Specialist Name Role Phone Saulo Chin MD Primary Care Provider [phone] Allergies No known active allergies Medications metoprolol tartrate (LOPRESSOR) 50 mg immediate release tabletIndicatio ns:hypertension Take 1 tablet (50 mg total) by mouth 2 (two) times a day Active lisinopriL (PRINIVIL,ZESTR IL) 40 mg tabletIndicatio ns:hypertension Take 1 tablet (40 mg total) by mouth daily Active atorvastatin (LIPITOR) 40 mg tabletIndicatio ns:hyperlipidem ia Take 1 tablet (40 mg total) by mouth daily Active aspirin 81 mg enteric coated tabletIndicatio ns:prevention of thrombosis Take 1 tablet (81 mg total) by mouth daily Active amLODIPine (NORVASC) 10 mg tablet Take 1 tablet (10 mg total) by mouth daily 30 tablet 11 5 07/28/19 26 Active nicotine (NICODERM CQ) [address] 1 patch on the skin daily for 10 days 10 patch 5 Active ipratropium-alb uteroL (DUO-NEB) 0.5-2.5 mg/3 mL nebulizer solution Take 3 mL by nebulization every 6 (six) hours as needed for wheezing or shortness of breath 5 Active guaiFENesin (ROBITUSSIN) syrup 100 mg/5 mLIndications:C ough Take 10 mL (200 mg total) by mouth every 6 (six) hours 5 Active ALPRAZolam (XANAX) 0.5 mg tabletIndicatio ns:anxiety Take 1 tablet (0.5 mg total) by mouth 3 (three) times a day as needed for anxiety 10 tablet 5 Active senna-docusate (PERICOLACE) 8.6-50 mg Take 1 tablet by mouth 2 (two) times a day 5 Active sodium chloride (HOLDEN 128) 5 % ophthalmic solutionIndicat ions:Corneal Edema Administer 1 drop into both eyes daily 5 Active famotidine (PEPCID) 20 mg tablet Take 1 tablet (20 mg total) by mouth daily 5 Active acetaminophen (TYLENOL) 325 mg tablet Take 2 tablets (650 mg total) by mouth every 4 (four) hours as needed for pain 5 Active Active Problems Problem Noted Date Diagnosed Date Metabolic acidosis, normal anion gap (NAG) 07/12 Assessment & Plan (07/12/2024 2:47 PM CADASTRAL SURVEYOR): Bicarb 18 on 07/12. VBG with compensated metabolic acidosis. Suspect metabolic compensation secondary to respiratory status. Lactic acid as previously has resolved. Plan: Transferred to ICU for potential BiPAP trial and possible intubation Tobacco use 07/11/2024 Assessment & Plan (07/12/2024 2:44 PM CADASTRAL SURVEYOR): Chronic. Cessation since onset influenza. Plan: Recommend continue cessation Continue nicotine patch Severe sepsis 07/11/2024 Assessment & Plan (07/12/2024 2:41 PM CADASTRAL SURVEYOR): Present on admission. Risk factor of viral respiratory illness. Lactic acidosis on admission had resolved. Plan: See assessment and plan for influenza. COPD (chronic obstructive pulmonary disease) Assessment & Plan (07/12/2024 2:45 PM CADASTRAL SURVEYOR): Potential new diagnosis. Risk factors of prior tobacco use disorder. Reports not having PFTs. Suspect possible exacerbation on admission. Steroids were initially held secondary to viral flu presentation. Clinical progress worse this morning. Plan: Given trial of Solu-Medrol 60 mg IV. Continue DuoNebs q.6 hours schedule an additional p.r.n.. Continue Mucinex Now transferred to ICU Recommend outpatient PFT testing. Continue azithromycin 500 mg daily 07/10-07/12 Acute respiratory failure with hypoxia Assessment & Plan (07/12/2024 2:35 PM CADASTRAL SURVEYOR): Previously on room air. Suspected secondary to influenza a diagnosis. Concern over labor breathing over possible impending respiratory failure. Plan: Transfer to ICU Influenza A 07/10/2024 Assessment & Plan (07/12/2024 2:37 PM CADASTRAL SURVEYOR): Positive status on admission. Was 4-5 days of symptom onset. Risk factors of prior tobacco use and possible new onset COPD exacerbation. Plan: Continue Tamiflu 07/10- Continue Mucinex Add pep therapy Now transferred to ICU Trial of Solu-Medrol 60 mg given worsening distress Assessment & Plan (07/10/2024 9:59 PM CADASTRAL SURVEYOR): Patients with flu like symptoms and positive influenza A. Was given Tamiflu in ED however limited utility given today is day 5 of symptoms. Likely underlying COPD given emphysematous changes on CXR, smoking history, and significant wheezing on physical exam. Also with acute respiratory failure w/ hypoxia requiring up to 6L O2 via NC, now down to 4L. Will continue to monitor O2 requirements. Lactate as high as 7.6 (20:09 on 07/10); s/p 1L IV NS, will give resuscitative fluids WCC: 11.3 RVP: influenza A CXR: no pulmonary congestion, emphysematous changes - Titrate oxygen requirements to maintain saturations at 88-92% - duo neb q6h prn - Incentive spirometry - PT/OT - Azithromycin 500 mg od x3 days -Consider referral to pulmonary rehab on D/C CAD (coronary artery disease) 07/10/2024 Assessment & Plan (07/12/2024 2:38 PM CADASTRAL SURVEYOR): Chronic. Prior [place] status post 2 stents. Show troponins on admission reassuring. EKG on admission less likely for ischemia. Plan: Continue aspirin 81 mg daily Continue Lipitor 40 mg daily Continue Lopressor 50 mg b.I.d. Assessment & Plan (07/10/2024 10:04 PM CADASTRAL SURVEYOR): Hx [place] s/p 2x stents, uncertain dates as to when EKG done in ED without significant ST elevation or depression - continue aspirin 81 mg po od, lipitor 40 mg po od, lopressor 50 mg po bid Essential hypertension 07/10/2024 Assessment & Plan (07/12/2024 2:39 PM CADASTRAL SURVEYOR): Chronic. Vital signs reviewed on 07/12 and elevated BP. Lisinopril was held on admission. 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 Suspect due to relative hypovolemia and systemic illness. Currently producing urine; will defer additional lab/imaging diagnostics pending fluid resuscitation. - BMP daily - s/p 1 L IVF - Consider UA with microscopy, Renal/bladder US, Karie, UCr if refractory or significant REYNALDO - renally dose medications Encounters Date Type Department Care Team Description 07/10/2024 4:42 PM CADASTRAL SURVEYOR - 07/28/2024 4:41 PM CADASTRAL SURVEYOR Hospital Encounter [facility] [address] [address] Vanessa Ken MD Richards, Greg Shirley Jr., Sushila Hernandez MD Lo Bianco, Salvador, MD Masetti, Paolo, MD Acute respiratory failure, unspecified whether with hypoxia or hypercapnia (HCC) (Primary Dx); Influenza A; Chronic obstructive pulmonary disease, unspecified COPD type (HCC); Dehydration; Generalized weakness; Severe sepsis (HCC); Essential hypertension; Coronary artery disease involving [place] coronary artery of [place] heart without angina pectoris; Elevated serum creatinine; Tobacco use; Acute respiratory failure with hypoxia (HCC) Discharge Disposition: Discharge to home, home health skilled care from Last 3 Months Immunizations Immunization Administration Dates Next Due Influenza, Unspecified 03/20/2024 Surgical History Surgery Date Site/Laterality Comments TOTAL ABDOMINAL HYSTERECTOMY W/ BILATERAL SALPINGOOPHORECTOMY 07/12/1983 - 07/11/1984 Hysterectomy, total abdominal, BSO Medical History Medical History Date Comments Cardiovascular disease Coronary artery disease Hypertension Hypertension Hyperlipidemia Hyperlipidemia Smoking Family History Medical History Relation Name Comments Diabetes type II Other 1 Family hist ory of Diabetes -Type II; Hypertension Other 2 Family history of Hypertension; Stroke Other 3 Family history of Stroke; Breast cancer Sister carole Ovarian cancer Sister carole Thyroid cancer Neg Hx Relation Name Status Comments Other 1 Other 2 Other 3 Sister carole Social History Tobacco Use Types Packs/Day Years Used Date Smoking Tobacco: Every Day Cigarettes Tobacco Cessation:Ready to Q uit: Not Asked; Counseling Given: Not Answered Alcohol Use Standard Drinks/Week Comments No 0 (1 standard drink = 0.6 oz pur e alcohol) [employer] Utilities Answer Date Recorded In the past 12 months has Baileyu, oil, or water [email or web address] threatened to shut off services in your home? No 07/11/2024 Social Connection and Isolat ion Panel [NHANES] Answer Date Recorded In a typical week, how many times do you talk on the phone with family, friends, or neighbors? More than three times a week 07/11/2024 How often do you get togethe r with friends or relatives? More than three times a week 07/11/2024 How often do you attend [facility] or yazidi services? Never 07/11/2024 Do you belong to any clubs o r organizations such as yazidi groups, unions, fraternal or athletic groups, or school groups? No 07/11/2024 How often do you attend meet ings of the clubs or organizations you belong to? Never 07/11/2024 Are you , , di vorced, , never , or living with a partner? 07/11/2024 AUDIT-C Answer Date Recorded Q1: How often do you have a drink containing alc ohol? Never 07/10/2024 Average Number of Drinks Not on file 024 Frequency of Binge Drinking Not on file 06/13 Overall Financial Resource Strain (CARDIA) Answe r Date Recorded How hard is it for you to pa y for the very basics like food, housing, medical care, and heating? Not hard at all 07/11/2024 Hunger Vital Sign Answer Date Recorded Within the past 12 months, y ou worried that your food would run out before you got the money to buy more. Never true 07/11/20 24 Within the past 12 months, t he food you bought just didn't last and you didn't have money to get more. Never true 07/11/2024 PRAPARE - Transportation Answer Date Re corded In the past 12 months, has l ack of transportation kept you from medical appointments or from getting medications? No 06/13 In the past 12 months, has l ack of transportation kept you from meetings, work, or from getting things needed for daily living? No 07/11/2024 Housing Stability Vital Sign Answer Garland e Recorded In the last 12 months, was t here a time when you were not able to pay the mortgage or rent on time? No 07/11/2024 In the past 12 months, how m any times have you moved where you were living? 0 07/11/2024 At any time in the past 12 m [facility], were you homeless or living in a [place] facility (including now)? No 07/11/2024 Personal Safety Answer Date Recorded Have you ever been in or are you currently in a harmful physical or emotional relationship or is someone making you feel afraid or unsafe? Denies 07/10/2024 Comments No Sex and Gender Information Value Date Recorded Sex Assigned at Not on file Legal Sex Female 12:34 AM CADASTRAL SURVEYOR Gender Identity Not on file Sexual Orientation Not on file Obstetrics History Para Term AB IAB SAB Ectopic Multiple Livin g Live Births 3 3 3 Date Outcome GA Total Labor Labor/2nd/3rd Weight Sex Type Anes PTL Fabiana A1 A5 Name Clin Term Term Term Last Filed Vital Signs Vital Sign Reading Time Taken Comments Blood Pressure 151/62 07/28/2024 11:13 AM CADASTRAL SURVEYOR Pulse 53 07/28/2024 11:13 AM CADASTRAL SURVEYOR Temperature 37.2 C (98.9 F) 07/28/2024 11:13 AM CADASTRAL SURVEYOR Respiratory Rate 18 07/28/2024 11:1 3 AM CADASTRAL SURVEYOR Oxygen Saturation 96% 07/28/2024 11: 13 AM CADASTRAL SURVEYOR Inhaled Oxygen Concentration - - Weight 69.8 kg (153 lb 14.1 oz) 07/21/2024 4:35 PM CADASTRAL SURVEYOR Height 152.4 cm (5') 07/13/2024 9:33 AM CADASTRAL SURVEYOR Body Mass Index 30.05 07/13/2024 9:33 AM CADASTRAL SURVEYOR Plan of Treatment Health Maintenance Due Date Last Done Comments Colon Cancer Screening-Colonoscopy 1950 Depression Screening 1950 Hepatitis C Screening 1950 DTaP/Tdap/Td Vaccine (1 - Tdap) 12/11/1963 Hepatitis B Screening 1970 Zoster Vaccine (1 of 2) 2002 Well Visit 65+ 2017 Pneumococcal vaccine 65+ (2 of 2 - PPSV23) 07/08/2020 05/13/2020 Breast Cancer Screening-Mammogram 03/09/2024 023, 05/29/2019 Covid-19 Vaccine ( season) 03/12/202405/2021, 08/22/2020 Osteoporosis Screening-Bone Density Scan 03/09/2025 03/09/2023, 05/29/2019 Fall Risk Assessment 07/28/2025 07/28/2024 Influenza Vaccine Completed 03/20/2024, , 06/01/2019 Procedures Procedure Name Priority Date/Time Associated Diagnosis Comments TRIGLYCERIDES Timed 07/28/2024 5:05 AM CADASTRAL SURVEYOR DIFFERENTIAL AUTO Timed 07/27/2024 5:1 2 AM CADASTRAL SURVEYOR CBC WITH AUTO DIFFERENTIAL Timed 07/27/2024 5:12 AM CADASTRAL SURVEYOR EGFR Timed 07/26/2024 4:55 AM CADASTRAL SURVEYOR BASIC METABOLIC PANEL Timed 07/26/2024 4:55 AM CADASTRAL SURVEYOR TRIGLYCERIDES Timed 07/25/2024 5:[address] HEAD WO CONTRAST IP Routine 07/24/2024 8 :42 AM CADASTRAL SURVEYOR DIFFERENTIAL AUTO Timed 07/24/2024 4:5 3 AM CADASTRAL SURVEYOR CBC WITH AUTO DIFFERENTIAL Timed 07/24/2024 4:53 AM CADASTRAL SURVEYOR XR ABDOMEN AP 1 VIEW ED Urgent/IP Urgent 07/23/2024 9:56 PM CADASTRAL SURVEYOR POCT GLUCOSE DEVICE Routine 07/23/2024 8 :51 PM CADASTRAL SURVEYOR EGFR Timed 07/23/2024 4:47 AM CADASTRAL SURVEYOR HEMOGLOBIN A1C Routine 07/23/2024 4:47 AM CADASTRAL SURVEYOR BASIC METABOLIC PANEL Timed 07/23/2024 4:47 AM CADASTRAL SURVEYOR POCT GLUCOSE DEVICE Routine 07/23/2024 2 :29 AM CADASTRAL SURVEYOR POCT GLUCOSE DEVICE Routine 07/23/2024 1 2:25 AM CADASTRAL SURVEYOR POCT GLUCOSE DEVICE Routine 07/22/2024 1 1:44 PM CADASTRAL SURVEYOR POCT GLUCOSE DEVICE Routine 07/22/2024 7 :50 PM CADASTRAL SURVEYOR POCT GLUCOSE DEVICE Routine 07/22/2024 4 :11 PM CADASTRAL SURVEYOR POCT GLUCOSE DEVICE Routine 07/22/2024 1 1:50 AM CADASTRAL SURVEYOR POCT GLUCOSE DEVICE Routine 07/22/2024 7 :56 AM CADASTRAL SURVEYOR EGFR Routine 07/22/2024 5:51 AM CADASTRAL SURVEYOR COMPREHENSIVE METABOLIC PANEL Routine 07/22/2024 5:51 AM CADASTRAL SURVEYOR TRIGLYCERIDES Timed 07/22/2024 5:51 AM CADASTRAL SURVEYOR POCT GLUCOSE DEVICE Routine 07/22/2024 3 :58 AM CADASTRAL SURVEYOR POCT GLUCOSE DEVICE Routine 07/22/2024 1 2:03 AM CADASTRAL SURVEYOR POCT GLUCOSE DEVICE Routine 07/21/2024 7 :55 PM CADASTRAL SURVEYOR POCT GLUCOSE DEVICE Routine 07/21/2024 4 :55 PM CADASTRAL SURVEYOR POCT GLUCOSE DEVICE Routine 07/21/2024 1 1:26 AM CADASTRAL SURVEYOR POCT GLUCOSE DEVICE Routine 07/21/2024 7 :56 AM CADASTRAL SURVEYOR POCT GLUCOSE DEVICE Routine 07/21/2024 4 :02 AM CADASTRAL SURVEYOR DIFFERENTIAL AUTO Add On 07/21/2024 2:2 6 AM CADASTRAL SURVEYOR CBC WITH AUTO DIFFERENTIAL Add-On 07/21/2024 2:26 AM CADASTRAL SURVEYOR EGFR Routine 07/21/2024 2:26 AM CADASTRAL SURVEYOR COMPREHENSIVE METABOLIC PANEL Routine 07/21/2024 2:26 AM CADASTRAL SURVEYOR POCT GLUCOSE DEVICE Routine 07/20/2024 1 1:51 PM CADASTRAL SURVEYOR POCT GLUCOSE DEVICE Routine 07/20/2024 8 :00 PM CADASTRAL SURVEYOR POCT GLUCOSE DEVICE Routine 07/20/2024 4 :03 PM CADASTRAL SURVEYOR POCT GLUCOSE DEVICE Routine 07/20/2024 1 1:23 AM CADASTRAL SURVEYOR POCT GLUCOSE DEVICE Routine 07/20/2024 8 :39 AM CADASTRAL SURVEYOR EGFR Routine 07/20/2024 4:31 AM CADASTRAL SURVEYOR COMPREHENSIVE METABOLIC PANEL Routine 07/20/2024 4:31 AM CADASTRAL SURVEYOR POCT GLUCOSE DEVICE Routine 07/20/2024 4 :18 AM CADASTRAL SURVEYOR POCT GLUCOSE DEVICE Routine 07/19/2024 1 1:45 PM CADASTRAL SURVEYOR POCT GLUCOSE DEVICE Routine 07/19/2024 8 :40 PM CADASTRAL SURVEYOR POCT GLUCOSE DEVICE Routine 07/19/2024 4 :18 PM CADASTRAL SURVEYOR POCT GLUCOSE DEVICE Routine 07/19/2024 1 2:49 PM CADASTRAL SURVEYOR POCT GLUCOSE DEVICE Routine 07/19/2024 7 :52 AM CADASTRAL SURVEYOR EGFR Routine 07/19/2024 4:39 AM CADASTRAL SURVEYOR COMPREHENSIVE METABOLIC PANEL Routine 07/19/2024 4:39 AM CADASTRAL SURVEYOR TRIGLYCERIDES Timed 07/19/2024 4:39 AM CADASTRAL SURVEYOR POCT GLUCOSE DEVICE Routine 07/19/2024 4 :38 AM CADASTRAL SURVEYOR POCT GLUCOSE DEVICE Routine 07/18/2024 1 1:56 PM CADASTRAL SURVEYOR POCT GLUCOSE DEVICE Routine 07/18/2024 7 :58 PM CADASTRAL SURVEYOR POCT GLUCOSE DEVICE Routine 07/18/2024 4 :03 PM CADASTRAL SURVEYOR POCT GLUCOSE DEVICE Routine 07/18/2024 1 2:11 PM CADASTRAL SURVEYOR POCT GLUCOSE DEVICE Routine 07/18/2024 8 :58 AM CADASTRAL SURVEYOR DIFFERENTIAL AUTO Routine 07/18/2024 6:4 6 AM CADASTRAL SURVEYOR CBC WITH AUTO DIFFERENTIAL Routine 07/18/2024 6:46 AM CADASTRAL SURVEYOR EGFR Routine 07/18/2024 3:30 AM CADASTRAL SURVEYOR COMPREHENSIVE METABOLIC PANEL Routine 07/18/2024 3:30 AM CADASTRAL SURVEYOR POCT GLUCOSE DEVICE Routine 07/18/2024 3 :28 AM CADASTRAL SURVEYOR POCT GLUCOSE DEVICE Routine 07/17/2024 1 1:55 PM CADASTRAL SURVEYOR POCT GLUCOSE DEVICE Routine 07/17/2024 8 :42 PM CADASTRAL SURVEYOR POCT GLUCOSE DEVICE Routine 07/17/2024 4 :20 PM CADASTRAL SURVEYOR POCT GLUCOSE DEVICE Routine 07/17/2024 1 1:43 AM CADASTRAL SURVEYOR POCT GLUCOSE DEVICE Routine 07/17/2024 7 :22 AM CADASTRAL SURVEYOR POCT GLUCOSE DEVICE Routine 07/17/2024 3 :24 AM CADASTRAL SURVEYOR EGFR Routine 07/17/2024 3:23 AM CADASTRAL SURVEYOR COMPREHENSIVE METABOLIC PANEL Routine 07/17/2024 3:23 AM CADASTRAL SURVEYOR POCT GLUCOSE DEVICE Routine 07/16/2024 1 1:22 PM CADASTRAL SURVEYOR POCT GLUCOSE DEVICE Routine 07/16/2024 7 :18 PM CADASTRAL SURVEYOR POCT GLUCOSE DEVICE Routine 07/16/2024 5 :12 PM CADASTRAL SURVEYOR POCT GLUCOSE DEVICE Routine 07/16/2024 1 2:20 PM CADASTRAL SURVEYOR POCT GLUCOSE DEVICE Routine 07/16/2024 8 :46 AM CADASTRAL SURVEYOR POCT GLUCOSE DEVICE Routine 07/16/2024 3 :22 AM CADASTRAL SURVEYOR EGFR Routine 07/16/2024 3:22 AM CADASTRAL SURVEYOR COMPREHENSIVE METABOLIC PANEL Routine 07/16/2024 3:22 AM CADASTRAL SURVEYOR TRIGLYCERIDES Timed 07/16/2024 3:22 AM CADASTRAL SURVEYOR DEXA AXIAL SKELETON BONE DENSITY 1 OR MORE SITES Schedule Routine, Read Routine (OP Routine) 03/09/2023 12:56 PM CDT Other specified personal risk factors, not elsewhere classified SCREENING MAMMOGRAM BILATERAL W TOMI Schedule Routine, Read Routine (OP Routine) 03/09/2023 12:46 PM CDT Encounter for screening mammogram for malignant neoplasm of breast from Last 3 Months or Most Recently Relevant to Health Maintenance Results * Triglycerides (07/28/2024 5:05 AM CADASTRAL SURVEYOR) Triglycerides 114 <=149 mg/dL Comment: Interpretive Data Ages < or = 9 years Acceptable: <75 mg/dL Borderline high: 75-99 mg/dL High: >or= 100 mg/dL Ages 10 to 20 years Acceptable: <90 mg/dL Borderline high: 90-129 mg/dL High: >or= 130 mg/dL Ages > or = 20 years Desirable: <150 mg/dL Borderline high: 150-199 mg/dL High: 200-499 mg/dL Very high: >or= 499 mg/dL Literature References: 1. Expert Panel on Integrated Guidelines for Cardiovascular Health and Risk Reduction in Children and Adolescents. Pediatrics 2011;128:S213 2. NCEP Expert Panel. Circulation 2004;110:227 Current Interpretive Data was last revised on 2018. Blood 07/28/2024 5:05 AM CADASTRAL SURVEYOR 07/28/2024 5:43 AM CADASTRAL SURVEYOR Jose L Bishop MD LAB BLOOD ORDERABLES Final Result [facility] ([place]) 1 [facility] Department [place] [address] * Differential, auto (07/27/2024 5:12 AM CADASTRAL SURVEYOR) Neutrophil abs 3.6 1.5 - 6.5 K/cumm Imm gran abs 0.0 0.0 - 0.1 K/cumm [facility] ([place]) Lymphocyte abs 1.7 0.8 - 3.3 K/cumm [facility] ([place]) Monocyte abs 0.3 0.2 - 0.8 K/cumm [facility] ([place]) Eosinophil abs 0.0 0.0 - 0.5 K/cumm [facility] ([place]) Basophil abs 0.0 0.0 - 0.1 K/cumm [facility] ([place]) Neutrophil pct 63.6 % [facility] ([place]) Comment: Interpretive Data Percent cell count reference ranges are not reported, since discordance with absolute values may lead to misinterpretation of CBC data. Current Interpretive Data was last revised on 2017. Imm gran pct 0.4 % [facility] ([place]) Comment: Interpretive Data Percent cell count reference ranges are not reported, since discordance with absolute values may lead to misinterpretation of CBC data. Current Interpretive Data was last revised on 2017. Lymphocyte pct 29.3 % [facility] ([place]) Comment: Interpretive Data Percent cell count reference ranges are not reported, since discordance with absolute values may lead to misinterpretation of CBC data. Current Interpretive Data was last revised on 2017. Monocyte pct 5.8 % [facility] ([place]) Comment: Interpretive Data Percent cell count reference ranges are not reported, since discordance with absolute values may lead to misinterpretation of CBC data. Current Interpretive Data was last revised on 2017. Eosinophil pct 0.7 % [facility] ([place]) Comment: Interpretive Data Percent cell count reference ranges are not reported, since discordance with absolute values may lead to misinterpretation of CBC data. Current Interpretive Data was last revised on 2017. Basophil pct 0.2 % [facility] ([place]) Comment: Interpretive Data Percent cell count reference ranges are not reported, since discordance with absolute values may lead to misinterpretation of CBC data. Current Interpretive Data was last revised on 2017. Blood 07/27/2024 5:12 AM CADASTRAL SURVEYOR 07/27/2024 5:35 AM CADASTRAL SURVEYOR us Greg Aguilar Jr., MD LAB BLOOD ORDERABLE S Final Result Performing Organization Address [facility] Co de Phone Number [facility] ([place]) 1 [facility] [place] [address] * (ABNORMAL) CBC with auto differential (07/27/2024 5:12 AM CADASTRAL SURVEYOR) WBC 5.7 3.8 - 9.9 K/cumm Hgb 9.5(L) 11.9 - 15.5 g/dL [facility] ([place]) Hct 30.3(L) 35.6 - 45.5 % [facility] ([place]) Plt 199 150 - 400 K/cumm [facility] ([place]) MPV 10.9 9.1 - 12.3 fL [facility] ([place]) RBC 3.24(L) 3.90 - 5.20 M/cumm [facility] ([place]) MCV 93.5 81.3 - 96.4 fL [facility] ([place]) MCH 29.3 27.1 - 33.3 pg [facility] ([place]) MCHC 31.4(L) 32.3 - 35.7 g/dL [facility] ([place]) RDW CV 15.9(H) 11.1 - 14.9 % [facility] ([place]) RDW SD 54.1(H) 35.7 - 48.1 fL [facility] ([place]) NRBC abs 0.02(H) 0.00 - 0.01 K/cumm [facility] ([place]) Blood 07/27/2024 5:12 AM CADASTRAL SURVEYOR 07/27/2024 5:35 AM CADASTRAL SURVEYOR us Greg Aguilar Jr., MD LAB BLOOD ORDERABLE S Final Result [facility] ([place]) 1 [facility] Department [place] [address] * eGFR (07/26/2024 4:55 AM CADASTRAL SURVEYOR) eGFR 67 >=60 mL/min/1. 73 m2 Comment: Interpretive Data Reference Interval Normal >/= 90 mL/min/1.73m2 Mildly decreased* 60 - 89 mL/min/1.73m2 Mildly to moderately decreased 45 - 59 mL/min/1.73m2 Moderately to severely decreased 30 - 44 mL/min/1.73m2 Severely decreased 15 - 29 mL/min/1.73m2 Kidney Failure < 15 mL/min/1.73m2 *Relative to young adult level Estimated glomerular filtration rate is determined by the 2020 CKD-EPI equation recommended by the National Kidney Foundation (A Unifying Approach to GFR Estimation: Recommendations of the NKF-ASK Task Force on Reassessing the Inclusion of Race in Diagnosing Kidney Disease, JASN 2020). The CKD-EPI equation should not be used for patients with unstable renal function and has not been validated in children and those over 70. Current interpretive data was last reviewed 2021. Blood 07/26/2024 4:55 AM CADASTRAL SURVEYOR 07/26/2024 5:03 AM CADASTRAL SURVEYOR us Greg Aguilar Jr., MD LAB BLOOD ORDERABLE S Final Result Performing Organization Address City/[facility]/ZIP Co de Phone Number [facility] ([place]) 1 [facility] [place] [address] * (ABNORMAL) Basic metabolic panel (07/26/2024 4:55 AM CADASTRAL SURVEYOR) Sodium 138 135 - 145 mmol/L Potassium, pl 3.7 3.3 - 4.9 mmol/L [facility] ([place]) Chloride 108 97 - 110 mmol/L [facility] ([place]) CO2 24 22 - 32 mmol/L [facility] ([place]) Anion gap 6 2 - 15 mmol/L [facility] ([place] BUN 24 6 - 25 mg/dL [facility] ([place]) Creatinine 0.91 0.60 - 1.10 mg/dL [facility] [facility] ([place]) Glucose 87 70 - 199 mg/dL [facility] ([place]) Comment: Interpretive Data Fasting glucose >/= 126 mg/dl is diagnostic for diabetes. Fasting is defined as no caloric intake for at least 8 hours. Fasting glucose between 100 mg/dl to 125 mg/dl is diagnostic of prediabetes. In a patient with classic symptoms of hyperglycemia or hyperglycemic crisis, a random glucose >/= 200 mg/dl is diagnostic for diabetes. In the absence of unequivocal hyperglycemia, results should be confirmed by repeat testing. The classification and Diagnosis of Diabetes Diabetes Care 202; 46: S19-S40. Current interpretive data was last revised 2022. Calcium 7.8(L) 8.5 - 10.3 mg/dL [facility] ([place]) Blood 07/26/2024 4:55 AM CADASTRAL SURVEYOR 07/26/2024 5:03 AM CADASTRAL SURVEYOR Greg Aguilar Jr., MD LAB BLOOD ORDERABLE S Final Result [facility] ([place]) 1 [facility] Department of Laboratories [place], [place] [id number] * Triglycerides (07/25/2024 5:27 AM CADASTRAL SURVEYOR) Triglycerides 129 <=149 mg/dL Comment: Interpretive Data Ages < or = 9 years Acceptable: <75 mg/dL Borderline high: 75-99 mg/dL High: >or= 100 mg/dL Ages 10 to 20 years Acceptable: <90 mg/dL Borderline high: 90-129 mg/dL High: >or= 130 mg/dL Ages > or = 20 years Desirable: <150 mg/dL Borderline high: 150-199 mg/dL High: 200-499 mg/dL Very high: >or= 499 mg/dL Literature References: 1. Expert Panel on Integrated Guidelines for Cardiovascular Health and Risk Reduction in Children and Adolescents. Pediatrics 2011;128:S213 2. NCEP Expert Panel. Circulation 2004;110:227 Current Interpretive Data was last revised on 2018. Blood 07/25/2024 5:27 AM CADASTRAL SURVEYOR 07/25/2024 5:48 AM CADASTRAL SURVEYOR us Jose L Bishop MD LAB BLOOD ORDERABLES Final Result [facility] ([place]) 1 [facility] [place] [address] * CT Head WO Contrast (07/24/2024 8:42 AM CADASTRAL SURVEYOR) Anatomical Region Laterality Modality Head and Neck N/A Computed Tomogra phy 07/24/2024 9:55 AM CADASTRAL SURVEYOR Narrative 07/24/2024 9:56 AM CADASTRAL SURVEYOR EXAM DESCRIPTION: CT HEAD WO CONTRAST REASON FOR STUDY: Mental status change, unknown cause Generalized weakness and s.o.b.with mental status change TECHNIQUE: Axial images acquired through the brain without intravenous contrast. Images stored on PACS. Automated exposure control was used as a dose optimization technique for this examination. COMPARISON: None FINDINGS: BRAIN: There is no definite evidence of acute intracranial hemorrhage. There is no definite evidence of an extra-axial fluid collection. There is no significant midline shift or focal mass effect. The ventricles are normal in size and position. There is mild cortical atrophy with periventricular white matter hypoattenuation, which is likely secondary to chronic microvascular ischemic disease. CALVARIUM: No fracture. SINUSES/MASTOIDS: There is mucosal thickening of the bilateral sphenoid sinuses and right maxillary sinus. There is mild mucosal thickening of the bilateral ethmoid air cells. There is a mucous retention cysts noted in the left maxillary sinus. There is fluid noted in the right mastoid air cells. The remainder of the visualized paranasal sinuses and left mastoid air cells are grossly clear. ORBITS: No significant abnormality. OTHER: No other significant abnormality. IMPRESSION: No definite evidence of acute intracranial hemorrhage. Mild cortical atrophy with periventricular white matter hypoattenuation, which is likely secondary to chronic microvascular ischemic disease. Fluid noted in the right mastoid air cells, which may be acute or chronic. Paranasal sinus disease. THIS IS AN ELECTRONICALLY VERIFIED FINAL REPORT 07/24/2024 9:56 AM - Electronically signed by Opal Vidal D.O. PS: MARVIN Report ID: [id number] Reading Location: [id number] Procedure Note Young Opal Luis Daniel, DO - 07/24/2024 EXAM DESCRIPTION: CT HEAD WO CONTRAST REASON FOR STUDY: Mental status change, unknown cause Generalized weakness and s.o.b.with mental status change TECHNIQUE: Axial images acquired through the brain without intravenous contrast. Images stored on PACS. Automated exposure control was used asa dose optimization technique for this examination. COMPARISON: None FINDINGS: BRAIN: There is no definite evidence of acute intracranial hemorrhage. There is no definite evidence of an extra-axial fluid collection. Thereis no significant midline shift or focal mass effect. The ventricles are normalin size and position. There is mild cortical atrophy with periventricularwhite matter hypoattenuation, which is likely secondary to chronic microvascular ischemic disease. CALVARIUM: No fracture. SINUSES/MASTOIDS: There is mucosal thickening of the bilateral sphenoid sinuses and right maxillary sinus. There is mild mucosal thickening ofthe bilateral ethmoid air cells. There is a mucous retention cysts noted inthe left maxillary sinus. There is fluid noted in the right mastoid aircells. The remainder of the visualized paranasal sinuses and left mastoid aircells are grossly clear. ORBITS: No significant abnormality. OTHER: No other significant abnormality. IMPRESSION: No definite evidence of acute intracranial hemorrhage. Mild cortical atrophy with periventricular white matter hypoattenuation, which is likely secondary to chronic microvascular ischemic disease. Fluid noted in the right mastoid air cells, which may be acute orchronic. Paranasal sinus disease. THIS IS AN ELECTRONICALLY VERIFIED FINAL REPORT 07/24/2024 9:56 AM - Electronically signed by Opal Vidal D.O. PS: PS Report ID: [id number] Reading Location: [id number] Greg Aguilar Jr., MD IM CT PROCEDURES F inal Result * Differential, auto (07/24/2024 4:53 AM CADASTRAL SURVEYOR) Neutrophil abs 6.5 1.5 - 6.5 K/cumm Imm gran abs 0.1 0.0 - 0.1 K/cumm [facility] ([place]) Lymphocyte abs 1.9 0.8 - 3.3 K/cumm [facility] ([place]) Monocyte abs 0.5 0.2 - 0.8 K/cumm [facility] ([place]) Eosinophil abs 0.0 0.0 - 0.5 K/cumm [facility] ([place]) Basophil abs 0.0 0.0 - 0.1 K/cumm [facility] ([place]) Neutrophil pct 72.1 % [facility] ([place]) Comment: Interpretive Data Percent cell count reference ranges are not reported, since discordance with absolute values may lead to misinterpretation of CBC data. Current Interpretive Data was last revised on 2017. Imm gran pct 0.6 % [facility] ([place]) Comment: Interpretive Data Percent cell count reference ranges are not reported, since discordance with absolute values may lead to misinterpretation of CBC data. Current Interpretive Data was last revised on 2017. Lymphocyte pct 21.3 % [facility] ([place]) Comment: Interpretive Data Percent cell count reference ranges are not reported, since discordance with absolute values may lead to misinterpretation of CBC data. Current Interpretive Data was last revised on 2017. Monocyte pct 5.4 % [facility] ([place]) Comment: Interpretive Data Percent cell count reference ranges are not reported, since discordance with absolute values may lead to misinterpretation of CBC data. Current Interpretive Data was last revised on 2017. Eosinophil pct 0.4 % [facility] ([place]) Comment: Interpretive Data Percent cell count reference ranges are not reported, since discordance with absolute values may lead to misinterpretation of CBC data. Current Interpretive Data was last revised on 2017. Basophil pct 0.2 % [facility] ([place]) Comment: Interpretive Data Percent cell count reference ranges are not reported, since discordance with absolute values may lead to misinterpretation of CBC data. Current Interpretive Data was last revised on 2017. Blood 07/24/2024 4:53 AM CADASTRAL SURVEYOR 07/24/2024 4:58 AM CADASTRAL SURVEYOR us Greg Aguilar Jr., MD LAB BLOOD ORDERABLE S Final Result [facility] ([place]) 1 [facility] [place] [address] * (ABNORMAL) CBC with auto differential (07/24/2024 4:53 AM CADASTRAL SURVEYOR) WBC 9.1 3.8 - 9.9 K/cumm Hgb 9.7(L) 11.9 - 15.5 g/dL [facility] ([place]) Hct 30.2(L) 35.6 - 45.5 % [facility] ([place]) Plt 260 150 - 400 K/cumm [facility] ([place]) MPV 10.8 9.1 - 12.3 fL [facility] ([place]) RBC 3.30(L) 3.90 - 5.20 M/cumm [facility] ([place]) MCV 91.5 81.3 - 96.4 fL [facility] ([place]) MCH 29.4 27.1 - 33.3 pg [facility] ([place]) MCHC 32.1(L) 32.3 - 35.7 g/dL [facility] ([place]) RDW CV 15.4(H) 11.1 - 14.9 % [facility] ([place]) RDW SD 51.1(H) 35.7 - 48.1 fL [facility] ([place]) NRBC abs 0.03(H) 0.00 - 0.01 K/cumm [facility] ([place]) Blood 07/24/2024 4:53 AM CADASTRAL SURVEYOR 07/24/2024 4:58 AM CADASTRAL SURVEYOR us Greg Aguilar Jr., MD LAB BLOOD ORDERABLE S Final Result [facility] ([place]) 1 [facility] [place] [address] * XR Abdomen 1 View AP (07/23/2024 9:56 PM CADASTRAL SURVEYOR) Anatomical Region Laterality Modality Body, Abdomen N/A Computed Radiogr aphy 07/23/2024 10:4 3 PM CADASTRAL SURVEYOR Narrative 07/23/2024 10:43 PM CADASTRAL SURVEYOR EXAM DESCRIPTION: XR ABDOMEN AP 1 VIEW REASON FOR STUDY: No bowel movement since admission 13 days ago, rule out obstruction Patient has not had bowel movement for at least 13 days. TECHNIQUE: Single radiographic view of the abdomen. COMPARISON: None FINDINGS: BOWEL: Nonobstructive gas pattern. Large amount of fecal matter in the colon and rectum. SOFT TISSUES: No abnormal calcifications. LINES/TUBES: None. BONES: No acute osseous abnormality. IMPRESSION: No acute finding. Large amount of fecal matter in the colon and rectum. THIS IS AN ELECTRONICALLY VERIFIED FINAL REPORT 07/23/2024 10:43 PM - Electronically signed by Lizandro Morales M.D. KT: [place]IA Report ID: [id number] Reading Location: [id number] Procedure Note Lizandro Morales MD - 07/23/2024 EXAM DESCRIPTION: XR ABDOMEN AP 1 VIEW REASON FOR STUDY: No bowel movement since admission 13 days ago, ruleout obstruction Patient has not had bowel movement for at least 13 days. TECHNIQUE: Single radiographic view of the abdomen. COMPARISON: None FINDINGS: BOWEL: Nonobstructive gas pattern. Large amount of fecal matter in thecolon and rectum. SOFT TISSUES: No abnormal calcifications. LINES/TUBES: None. BONES: No acute osseous abnormality. IMPRESSION: No acute finding. Large amount of fecal matter in the colon and rectum. THIS IS AN ELECTRONICALLY VERIFIED FINAL REPORT 07/23/2024 10:43 PM - Electronically signed by Lizandro Morales M.D. KT: ITALIA Report ID: [id number] Reading Location: [id number] us Greg Aguilar Jr., MD IMG XR PROCEDURES F inal Result * POCT glucose (07/23/2024 8:51 PM CADASTRAL SURVEYOR) [facility] Signature Glucose, POC 141 70 - 199 mg/dL Blood 07/23/2024 8:51 PM CADASTRAL SURVEYOR 07/23/2024 8:51 PM CADASTRAL SURVEYOR us Greg Aguilar Jr., MD LAB POCT ORDERABLES - DEVICE Final Result Performing Organization Address City/[facility]/ZIP Co de Phone Number [facility] ([place]) 1 [facility] [place] [address] * eGFR (07/23/2024 4:47 AM CADASTRAL SURVEYOR) eGFR 69 >=60 mL/min/1. 73 m2 Comment: Interpretive Data Reference Interval Normal >/= 90 mL/min/1.73m2 Mildly decreased* 60 - 89 mL/min/1.73m2 Mildly to moderately decreased 45 - 59 mL/min/1.73m2 Moderately to severely decreased 30 - 44 mL/min/1.73m2 Severely decreased 15 - 29 mL/min/1.73m2 Kidney Failure < 15 mL/min/1.73m2 *Relative to young adult level Estimated glomerular filtration rate is determined by the 2020 CKD-EPI equation recommended by the National Kidney Foundation (A Unifying Approach to GFR Estimation: Recommendations of the NKF-ASK Task Force on Reassessing the Inclusion of Race in Diagnosing Kidney Disease, JASN 2020). The CKD-EPI equation should not be used for patients with unstable renal function and has not been validated in children and those over 70. Current interpretive data was last reviewed 2021. Blood 07/23/2024 4:47 AM CADASTRAL SURVEYOR 07/23/2024 5:00 AM CADASTRAL SURVEYOR us Greg Aguilar Jr., MD LAB BLOOD ORDERABLE S Final Result Performing Organization Address City/[facility]/ZIP Co de Phone Number [facility] R[facility] ([place]) 1 [facility] [place] [address] * (ABNORMAL) Hemoglobin A1c (07/23/2024 4:47 AM CADASTRAL SURVEYOR) Hgb A1C 6.2(H) 4.0 - 5.6 % Estimated Average Glucose 131 mg/dL [facility] ([place]) Comment: The ADA recommends reporting an estimated Average Glucose (eAG) with all Hemoglobin A1c results using the equation derived from a study of 507 normal and diabetic adults. Minority populations were underrepresented and children were not included. (Diabetes Care 31:2040-2144, 2008). The eAG is not equivalent to a fasting glucose. Blood 07/23/2024 4:47 AM CADASTRAL SURVEYOR 07/23/2024 4:59 AM CADASTRAL SURVEYOR us Greg Aguilar Jr., MD LAB BLOOD ORDERABLE S Final Result [facility] ([place]) 1 [facility] [place] [address] * (ABNORMAL) Basic metabolic panel (07/23/2024 4:47 AM CADASTRAL SURVEYOR) Sodium 139 135 - 145 mmol/L Potassium, pl 3.5 3.3 - 4.9 mmol/L [facility] ([place]) Chloride 108 97 - 110 mmol/L [facility] ([place]) CO2 23 22 - 32 mmol/L [facility] ([place]) Anion gap 9 2 - 15 mmol/L [facility] ([place]) BUN 35(H) 6 - 25 mg/dL [facility] ([place]) Creatinine 0.89 0.60 - 1.10 mg/dL [facility] ([place]) Glucose 133 70 - 199 mg/dL [facility] ([place]) Comment: Interpretive Data Fasting glucose >/= 126 mg/dl is diagnostic for diabetes. Fasting is defined as no caloric intake for at least 8 hours. Fasting glucose between 100 mg/dl to 125 mg/dl is diagnostic of prediabetes. In a patient with classic symptoms of hyperglycemia or hyperglycemic crisis, a random glucose >/= 200 mg/dl is diagnostic for diabetes. In the absence of unequivocal hyperglycemia, results should be confirmed by repeat testing. The classification and Diagnosis of Diabetes Diabetes Care 2021; 46: S19-S40. Current interpretive data was last revised 2022. Calcium 8.2(L) 8.5 - 10.3 mg/dL [facility] ([place]) Blood 07/23/2024 4:47 AM CADASTRAL SURVEYOR 07/23/2024 5:00 AM CADASTRAL SURVEYOR Greg Aguilar Jr., MD LAB BLOOD ORDERABLE S Final Result Performing Organization Address [facility] Co de Phone Number [facility] R[facility] ([place]) [address] [facility] [place] [address] * POCT glucose (07/23/2024 2:29 AM CADASTRAL SURVEYOR) Glucose, POC 157 70 - 199 mg/dL Comment:Glu2: RN/ Notified Blood 07/23/2024 2:29 AM CADASTRAL SURVEYOR 07/23/2024 2:29 AM CADASTRAL SURVEYOR Greg Aguilar Jr., MD LAB POCT ORDERABLES - DEVICE Final Result Performing Organization Address [facility] [[email or web address]] de Phone Number [facility] R[facility] ([place]) 1 [facility] [place] [place] [address] * POCT glucose (07/23/2024 12:25 AM CADASTRAL SURVEYOR) Glucose, POC 89 70 - 199 mg/dL Comment:Glu2: RN/ Notified Blood 07/23/2024 12:2 5 AM CADASTRAL SURVEYOR 07/23/2024 12:25 AM CADASTRAL SURVEYOR Greg Aguilar Jr., MD LAB POCT ORDERABLES - DEVICE Final Result Performing Organization Address [facility] [[email or web address]] de Phone Number [facility] ROD[facility] ([place]) 1 [facility] [place] [address] * (ABNORMAL) POCT glucose (07/22/2024 11:44 PM CADASTRAL SURVEYOR) Glucose, POC 63(L) 70 - 199 mg/dL Comment:Glu2: RN/ Notified Blood 07/22/2024 11:4 4 PM CADASTRAL SURVEYOR 07/22/2024 11:44 PM CADASTRAL SURVEYOR us Greg Aguilar Jr., MD LAB POCT ORDERABLES - DEVICE Final Result [facility] ([place]) 1 [facility] [place] [place] [address] * (ABNORMAL) POCT glucose (07/22/2024 7:50 PM CADASTRAL SURVEYOR) Glucose, POC 200(H) 70 - 199 mg/dL Comment:Glu2: RN/ Notified Blood 07/22/2024 7:50 PM CADASTRAL SURVEYOR 07/22/2024 7:50 PM CADASTRAL SURVEYOR us Greg Aguilar Jr., MD LAB POCT ORDERABLES - DEVICE Final Result Performing Organization Address [facility] Co de Phone Number [facility] ROD[facility]IG[facility] ([place]) [address] [facility] [place] [place] [address] * POCT glucose (07/22/2024 4:11 PM CADASTRAL SURVEYOR) Glucose, POC 125 70 - 199 mg/dL Blood 07/22/2024 4:11 PM CADASTRAL SURVEYOR 07/22/2024 4:11 PM CADASTRAL SURVEYOR us Greg Aguilar Jr., MD LAB POCT ORDERABLES - DEVICE Final Result Performing Organization Address City/[facility]/ZIP Co de Phone Number [facility] ROD[facility]IG[facility] ([place]) 1 [facility] [place] [address] * POCT glucose (07/22/2024 11:50 AM CADASTRAL SURVEYOR) Glucose, POC 82 70 - 199 mg/dL Blood 07/22/2024 11:5 0 AM CADASTRAL SURVEYOR 07/22/2024 11:50 AM CADASTRAL SURVEYOR Greg Aguilar Jr., MD LAB POCT ORDERABLES - DEVICE Final Result Performing Organization Address [facility]/ZIP Co de Phone Number [facility] R[facility] ([place]) 1 [facility] [place] [place] [address] * POCT glucose (07/22/2024 7:56 AM CADASTRAL SURVEYOR) Glucose, POC 80 70 - 199 mg/dL Blood 07/22/2024 7:56 AM CADASTRAL SURVEYOR 07/22/2024 7:56 AM CADASTRAL SURVEYOR us Greg Aguilar Jr., MD LAB POCT ORDERABLES - DEVICE Final Result Performing Organization Address [facility]/ZIP Co de Phone Number [facility] ([place]) 1 [place] [address] * eGFR (07/22/2024 5:51 AM CADASTRAL SURVEYOR) eGFR 65 >=60 mL/min/1. 73 m2 Comment: Interpretive Data Reference Interval Normal >/= 90 mL/min/1.73m2 Mildly decreased* 60 - 89 mL/min/1.73m2 Mildly to moderately decreased 45 - 59 mL/min/1.73m2 Moderately to severely decreased 30 - 44 mL/min/1.73m2 Severely decreased 15 - 29 mL/min/1.73m2 Kidney Failure < 15 mL/min/1.73m2 *Relative to young adult level Estimated glomerular filtration rate is determined by the 2020 CKD-EPI equation recommended by the National Kidney Foundation (A Unifying Approach to GFR Estimation: Recommendations of the NKF-ASK Task Force on Reassessing the Inclusion of Race in Diagnosing Kidney Disease, JASN 2020). The CKD-EPI equation should not be used for patients with unstable renal function and has not been validated in children and those over 70. Current interpretive data was last reviewed 2021. Blood 07/22/2024 5:51 AM CADASTRAL SURVEYOR 07/22/2024 5:56 AM CADASTRAL SURVEYOR us Iam Savage MD LAB BLOOD ORDERABLES Final Resu lt Performing Organization Address City/[facility]/ZIP Co de Phone Number [facility] ([place]) 1 [facility] [place] [address] * Triglycerides (07/22/2024 5:51 AM CADASTRAL SURVEYOR) Triglycerides 114 <=149 mg/dL Comment: Interpretive Data Ages < or = 9 years Acceptable: <75 mg/dL Borderline high: 75-99 mg/dL High: >or= 100 mg/dL Ages 10 to 20 years Acceptable: <90 mg/dL Borderline high: 90-129 mg/dL High: >or= 130 mg/dL Ages > or = 20 years Desirable: <150 mg/dL Borderline high: 150-199 mg/dL High: 200-499 mg/dL Very high: >or= 499 mg/dL Literature References: 1. Expert Panel on Integrated Guidelines for Cardiovascular Health and Risk Reduction in Children and Adolescents. Pediatrics 2011;128:S213 2. NCEP Expert Panel. Circulation 2004;110:227 Current Interpretive Data was last revised on 2018. Blood 07/22/2024 5:51 AM CADASTRAL SURVEYOR 07/22/2024 5:56 AM CADASTRAL SURVEYOR Jose L Bishop MD LAB BLOOD ORDERABLES Final Result [facility] ([place]) 1 [facility] Department [place] [address] * (ABNORMAL) Comprehensive metabolic panel (07/22/2024 5:51 AM CADASTRAL SURVEYOR) Sodium 142 135 - 145 mmol/L Potassium, pl 4.4 3.3 - 4.9 mmol/L [facility] ([place]) Chloride 106 97 - 110 mmol/L [facility] ([place]) CO2 24 22 - 32 mmol/L [facility] ([place]) Anion gap 12 2 - 15 mmol/L [facility] ([place]) BUN 41(H) 6 - 25 mg/dL [facility] ([place]) Creatinine 0.94 0.60 - 1.10 mg/dL [facility] ([place]) Glucose 114 70 - 199 mg/dL [facility] ([place]) Comment: Interpretive Data Fasting glucose >/= 126 mg/dl is diagnostic for diabetes. Fasting is defined as no caloric intake for at least 8 hours. Fasting glucose between 100 mg/dl to 125 mg/dl is diagnostic of prediabetes. In a patient with classic symptoms of hyperglycemia or hyperglycemic crisis, a random glucose >/= 200 mg/dl is diagnostic for diabetes. In the absence of unequivocal hyperglycemia, results should be confirmed by repeat testing. The classification and Diagnosis of Diabetes Diabetes Care 2021; 46: S19-S40. Current interpretive data was last revised 2022. Calcium 8.6 8.5 - 10.3 mg/dL [facility] ([place]) Bilirubin, total 0.6 0.1 - 1.2 mg/dL [facility] ([place]) Protein, pl 6.1(L) 6.5 - 8.5 g/dL [facility] ([place]) Albumin 3.1(L) 3.5 - 5.0 g/dL [facility] ([place]) Alk phos 99 40 - 130 Units/L [facility] ([place]) ALT 49(H) 7 - 45 Units/L [facility] ([place]) AST 42 10 - 45 Units/L [facility] ([place]) Comment: Hemolysis present. Results may be affected. Slightly Hemolyzed Specimen Blood 07/22/2024 5:51 AM CADASTRAL SURVEYOR 07/22/2024 5:56 AM CADASTRAL SURVEYOR us Iam Savage MD LAB BLOOD ORDERABLES Final Resu lt [facility] ([place]) 1 [facility] [employer] [place] [employer] [place] [address] * POCT glucose (07/22/2024 3:58 AM CADASTRAL SURVEYOR) [facility] Signature Glucose, POC 78 70 - 199 mg/dL Blood 07/22/2024 3:58 AM CADASTRAL SURVEYOR 07/22/2024 3:58 AM CADASTRAL SURVEYOR us Greg Aguilar Jr., MD LAB POCT ORDERABLES - DEVICE Final Result [facility] 1 [facility] [employer] [place] [place] [address] * POCT glucose (07/22/2024 12:03 AM CADASTRAL SURVEYOR) Glucose, POC 152 70 - 199 mg/dL Blood 07/22/2024 12:0 3 AM CADASTRAL SURVEYOR 07/22/2024 12:03 AM CADASTRAL SURVEYOR us Greg Aguilar Jr., MD LAB POCT ORDERABLES - DEVICE Final Result Performing Organization Address [facility] Co de Phone Number [facility] ([place]) 1 [facility] [place] [place] [address] * POCT glucose (07/21/2024 7:55 PM CADASTRAL SURVEYOR) Glucose, POC 187 70 - 199 mg/dL Blood 07/21/2024 7:55 PM CADASTRAL SURVEYOR 07/21/2024 7:55 PM CADASTRAL SURVEYOR us Greg Aguilar Jr., MD LAB POCT ORDERABLES - DEVICE Final Result Performing Organization Address [facility] de Phone Number [facility] ([place]) 1 [facility] [place] [place] [address] * POCT glucose (07/21/2024 4:55 PM CADASTRAL SURVEYOR) Glucose, POC 140 70 - 199 mg/dL Blood 07/21/2024 4:55 PM CADASTRAL SURVEYOR 07/21/2024 4:55 PM CADASTRAL SURVEYOR us Greg Aguilar Jr., MD LAB POCT ORDERABLES - DEVICE Final Result Performing Organization Address [facility] Co de Phone Number [facility] ([place]) [address] [facility] [place] [place] [address] * POCT glucose (07/21/2024 11:26 AM CADASTRAL SURVEYOR) Glucose, POC 81 70 - 199 mg/dL Blood 07/21/2024 11:2 6 AM CADASTRAL SURVEYOR 07/21/2024 11:26 AM CADASTRAL SURVEYOR us Greg Aguilar Jr., MD LAB POCT ORDERABLES - DEVICE Final Result [facility]ET RODRIG[facility] ([place]) 1 [facility] [place] [place] [address] * POCT glucose (07/21/2024 7:56 AM CADASTRAL SURVEYOR) Glucose, POC 91 70 - 199 mg/dL Blood 07/21/2024 7:56 AM CADASTRAL SURVEYOR 07/21/2024 7:56 AM CADASTRAL SURVEYOR us Greg Aguilar Jr., MD LAB POCT ORDERABLES - DEVICE Final Result Performing Organization Address City/[facility]/ZIP Co de Phone Number LIZET RODRIGUES ([place]) 1 [facility] [place] [place] [address] * POCT glucose (07/21/2024 4:02 AM CADASTRAL SURVEYOR) Glucose, POC 128 70 - 199 mg/dL Blood 07/21/2024 4:02 AM CADASTRAL SURVEYOR 07/21/2024 4:02 AM CADASTRAL SURVEYOR Greg Aguilar Jr., MD LAB POCT ORDERABLES - DEVICE Final Result LIZET RODRIGUES ([place]) 1 [facility] [place] [address] * eGFR (07/21/2024 2:26 AM CADASTRAL SURVEYOR) eGFR 70 >=60 mL/min/1. 73 m2 Comment: Interpretive Data Reference Interval Normal >/= 90 mL/min/1.73m2 Mildly decreased* 60 - 89 mL/min/1.73m2 Mildly to moderately decreased 45 - 59 mL/min/1.73m2 Moderately to severely decreased 30 - 44 mL/min/1.73m2 Severely decreased 15 - 29 mL/min/1.73m2 Kidney Failure < 15 mL/min/1.73m2 *Relative to young adult level Estimated glomerular filtration rate is determined by the 2020 CKD-EPI equation recommended by the National Kidney Foundation (A Unifying Approach to GFR Estimation: Recommendations of the NKF-ASK Task Force on Reassessing the Inclusion of Race in Diagnosing Kidney Disease, JASN 2020). The CKD-EPI equation should not be used for patients with unstable renal function and has not been validated in children and those over 70. Current interpretive data was last reviewed 2021. Blood 07/21/2024 2:26 AM CADASTRAL SURVEYOR 07/21/2024 4:06 AM CADASTRAL SURVEYOR us Iam Savage MD LAB BLOOD ORDERABLES Final Resu lt [facility] ([place]) 1 [facility] [place] [address] * (ABNORMAL) Differential, auto (07/21/2024 2:26 AM CADASTRAL SURVEYOR) Neutrophil abs 8.7(H) 1.5 - 6.5 K/cumm Imm gran abs 0.1 0.0 - 0.1 K/cumm [facility] ([place]) Lymphocyte abs 0.7(L) 0.8 - 3.3 K/cumm [facility] ([place]) Monocyte abs 0.3 0.2 - 0.8 K/cumm [facility] ([place]) Eosinophil abs 0.0 0.0 - 0.5 K/cumm [facility] ([place]) Basophil abs 0.0 0.0 - 0.1 K/cumm [facility] ([place]) Neutrophil pct 89.4 % [facility] ([place]) Comment: Interpretive Data Percent cell count reference ranges are not reported, since discordance with absolute values may lead to misinterpretation of CBC data. Current Interpretive Data was last revised on 2017. Imm gran pct 0.7 % [facility] ([place]) Comment: Interpretive Data Percent cell count reference ranges are not reported, since discordance with absolute values may lead to misinterpretation of CBC data. Current Interpretive Data was last revised on 2017. Lymphocyte pct 6.8 % [facility] ([place]) Comment: Interpretive Data Percent cell count reference ranges are not reported, since discordance with absolute values may lead to misinterpretation of CBC data. Current Interpretive Data was last revised on 2017. Monocyte pct 3.0 % [facility] ([place]) Comment: Interpretive Data Percent cell count reference ranges are not reported, since discordance with absolute values may lead to misinterpretation of CBC data. Current Interpretive Data was last revised on 2017. Eosinophil pct 0.0 % [facility] ([place]) Comment: Interpretive Data Percent cell count reference ranges are not reported, since discordance with absolute values may lead to misinterpretation of CBC data. Current Interpretive Data was last revised on 2017. Basophil pct 0.1 % [facility] ([place]) Comment: Interpretive Data Percent cell count reference ranges are not reported, since discordance with absolute values may lead to misinterpretation of CBC data. Current Interpretive Data was last revised on 2017. Blood 07/21/2024 2:26 AM CADASTRAL SURVEYOR 07/21/2024 8:49 AM CADASTRAL SURVEYOR us Greg Aguilar Jr., MD LAB BLOOD ORDERABLE S Final Result [facility] ([place]) 1 [facility] Department [place] [address] * (ABNORMAL) CBC with auto differential (07/21/2024 2:26 AM CADASTRAL SURVEYOR) WBC 9.7 3.8 - 9.9 K/cumm Hgb 10.8(L) 11.9 - 15.5 g/dL [facility] ([place]) Hct 35.0(L) 35.6 - 45.5 % [facility] ([place]) Plt 300 150 - 400 K/cumm [facility] ([place]) MPV 11.5 9.1 - 12.3 fL [facility] ([place]) RBC 3.72(L) 3.90 - 5.20 M/cumm [facility] ([place]) MCV 94.1 81.3 - 96.4 fL [facility] ([place]) MCH 29.0 27.1 - 33.3 pg [facility] ([place]) MCHC 30.9(L) 32.3 - 35.7 g/dL [facility] ([place]) RDW CV 15.6(H) 11.1 - 14.9 % [facility] ([place]) RDW SD 52.5(H) 35.7 - 48.1 fL [facility] ([place]) NRBC abs 0.00 0.00 - 0.01 K/cumm [facility] ([place]) Blood 07/21/2024 2:26 AM CADASTRAL SURVEYOR 07/21/2024 8:49 AM CADASTRAL SURVEYOR us Greg Aguilar Jr., MD LAB BLOOD ORDERABLE S Final Result [facility] ([place]) 1 [facility] Department [place] [address] * (ABNORMAL) Comprehensive metabolic panel (07/21/2024 2:26 AM CADASTRAL SURVEYOR) Sodium 141 135 - 145 mmol/L Potassium, pl 4.9 3.3 - 4.9 mmol/L [facility] ([place]) Chloride 107 97 - 110 mmol/L [facility] ([place]) CO2 23 22 - 32 mmol/L [facility] ([place]) Anion gap 12 2 - 15 mmol/L [facility] ([place]) BUN 48(H) 6 - 25 mg/dL [facility] ([place]) Creatinine 0.88 0.60 - 1.10 mg/dL [facility] ([place]) Glucose 118 70 - 199 mg/dL [facility] ([place]) Comment: Interpretive Data Fasting glucose >/= 126 mg/dl is diagnostic for diabetes. Fasting is defined as no caloric intake for at least 8 hours. Fasting glucose between 100 mg/dl to 125 mg/dl is diagnostic of prediabetes. In a patient with classic symptoms of hyperglycemia or hyperglycemic crisis, a random glucose >/= 200 mg/dl is diagnostic for diabetes. In the absence of unequivocal hyperglycemia, results should be confirmed by repeat testing. The classification and Diagnosis of Diabetes Diabetes Care 2021; 46: S19-S40. Current interpretive data was last revised 2022. Calcium 8.8 8.5 - 10.3 mg/dL [facility] ([place]) Bilirubin, total 0.5 0.1 - 1.2 mg/dL [facility] ([place]) Protein, pl 6.1(L) 6.5 - 8.5 g/dL [facility] ([place]) Albumin 3.0(L) 3.5 - 5.0 g/dL [facility] ([place]) Alk phos 99 40 - 130 Units/L [facility] ([place]) ALT 46(H) 7 - 45 Units/L [facility] ([place]) AST 36 10 - 45 Units/L [facility] ([place]) Comment:Slightly Hemolyzed S pecimen Blood 07/21/2024 2:26 AM CADASTRAL SURVEYOR 07/21/2024 4:06 AM CADASTRAL SURVEYOR us Iam Savage MD LAB BLOOD ORDERABLES Final Resu lt Performing Organization Address [facility] Co de Phone Number LIZET RODRIGUES ([place]) 1 [facility] [place] [place] [address] * POCT glucose (07/20/2024 11:51 PM CADASTRAL SURVEYOR) Glucose, POC 103 70 - 199 mg/dL Blood 07/20/2024 11:5 1 PM CADASTRAL SURVEYOR 07/20/2024 11:51 PM CADASTRAL SURVEYOR us Greg Aguilar Jr., MD LAB POCT ORDERABLES - DEVICE Final Result Performing Organization Address [facility] Co de Phone Number LIZET RODRIGUES ([place]) 1 [facility] [place] [place] [address] * POCT glucose (07/20/2024 8:00 PM CADASTRAL SURVEYOR) Glucose, POC 110 70 - 199 mg/dL Blood 07/20/2024 8:00 PM CADASTRAL SURVEYOR 07/20/2024 8:00 PM CADASTRAL SURVEYOR us Greg Aguilar Jr., MD LAB POCT ORDERABLES - DEVICE Final Result Performing Organization Address [facility] Co de Phone Number LIZET RODRIGUES ([place]) 1 [place] [address] * POCT glucose (07/20/2024 4:03 PM CADASTRAL SURVEYOR) Glucose, POC 188 70 - 199 mg/dL Blood 07/20/2024 4:03 PM CADASTRAL SURVEYOR 07/20/2024 4:03 PM CADASTRAL SURVEYOR us Greg Aguilar Jr., MD LAB POCT ORDERABLES - DEVICE Final Result LIZET RODRIGUES ([place]) 1 [place] [address] * POCT glucose (07/20/2024 11:23 AM CADASTRAL SURVEYOR) Glucose, POC 115 70 - 199 mg/dL Blood 07/20/2024 11:2 3 AM CADASTRAL SURVEYOR 07/20/2024 11:23 AM CADASTRAL SURVEYOR us Iam Savage MD LAB POCT ORDERABLES - DEVICE Fi nal Result LIZET RODRIGUES ([place]) 1 [facility] [place] [place] [address] * POCT glucose (07/20/2024 8:39 AM CADASTRAL SURVEYOR) Glucose, POC 89 70 - 199 mg/dL Blood 07/20/2024 8:39 AM CADASTRAL SURVEYOR 07/20/2024 8:39 AM CADASTRAL SURVEYOR us Iam Savage MD LAB POCT ORDERABLES - DEVICE Fi nal Result LIZET RODRIGUES ([place]) 1 [place] [address] * eGFR (07/20/2024 4:31 AM CADASTRAL SURVEYOR) Pathologist [facility] eGFR 67 >=60 mL/min/1. 73 m2 Comment: Interpretive Data Reference Interval Normal >/= 90 mL/min/1.73m2 Mildly decreased* 60 - 89 mL/min/1.73m2 Mildly to moderately decreased 45 - 59 mL/min/1.73m2 Moderately to severely decreased 30 - 44 mL/min/1.73m2 Severely decreased 15 - 29 mL/min/1.73m2 Kidney Failure < 15 mL/min/1.73m2 *Relative to young adult level Estimated glomerular filtration rate is determined by the 2020 CKD-EPI equation recommended by the National Kidney Foundation (A Unifying Approach to GFR Estimation: Recommendations of the NKF-ASK Task Force on Reassessing the Inclusion of Race in Diagnosing Kidney Disease, JASN 2020). The CKD-EPI equation should not be used for patients with unstable renal function and has not been validated in children and those over 70. Current interpretive data was last reviewed 2021. Blood 07/20/2024 4:31 AM CADASTRAL SURVEYOR 07/20/2024 4:36 AM CADASTRAL SURVEYOR us Iam Savage MD LAB BLOOD ORDERABLES Final Resu lt [facility] ([place]) 1 [facility] [place] [address] * (ABNORMAL) Comprehensive metabolic panel (07/20/2024 4:31 AM CADASTRAL SURVEYOR) Sodium 144 135 - 145 mmol/L Potassium, pl 5.1(H) 3.3 - 4.9 mmol/L [facility] ([place]) Chloride 105 97 - 110 mmol/L [facility] ([place]) CO2 27 22 - 32 mmol/L [facility] ([place]) Anion gap 12 2 - 15 mmol/L [facility] ([place]) BUN 51(H) 6 - 25 mg/dL [facility] ([place]) Creatinine 0.92 0.60 - 1.10 mg/dL [facility] ([place]) Glucose 113 70 - 199 mg/dL [facility] ([place]) Comment: Interpretive Data Fasting glucose >/= 126 mg/dl is diagnostic for diabetes. Fasting is defined as no caloric intake for at least 8 hours. Fasting glucose between 100 mg/dl to 125 mg/dl is diagnostic of prediabetes. In a patient with classic symptoms of hyperglycemia or hyperglycemic crisis, a random glucose >/= 200 mg/dl is diagnostic for diabetes. In the absence of unequivocal hyperglycemia, results should be confirmed by repeat testing. The classification and Diagnosis of Diabetes Diabetes Care 2021; 46: S19-S40. Current interpretive data was last revised 2022. Calcium 9.2 8.5 - 10.3 mg/dL [facility] ([place]) Bilirubin, total 0.5 0.1 - 1.2 mg/dL [facility] ([place]) Protein, pl 7.2 6.5 - 8.5 g/dL [facility] ([place]) Albumin 3.5 3.5 - 5.0 g/dL [facility] ([place]) Alk phos 113 40 - 130 Units/L [facility] ([place]) ALT 54(H) 7 - 45 Units/L [facility] ([place]) AST 41 10 - 45 Units/L [facility] ([place]) Blood 07/20/2024 4:31 AM CADASTRAL SURVEYOR 07/20/2024 4:36 AM CADASTRAL SURVEYOR Iam Savage MD LAB BLOOD ORDERABLES Final Resu lt Performing Organization Address City/[facility]/ZIP Co de Phone Number LIZET RODRIGUES ([place]) 1 [facility] [employer] [place] [employer] [place] [address] * POCT glucose (07/20/2024 4:18 AM CADASTRAL SURVEYOR) Glucose, POC 98 70 - 199 mg/dL Blood 07/20/2024 4:18 AM CADASTRAL SURVEYOR 07/20/2024 4:18 AM CADASTRAL SURVEYOR us Iam Savage MD LAB POCT ORDERABLES - DEVICE Fi nal Result Performing Organization Address City/[facility]/ZIP Co de Phone Number LIZET RODRIGUES ([place]) 1 [facility] [employer] [place] [employer] [place] [address] * POCT glucose (07/19/2024 11:45 PM CADASTRAL SURVEYOR) Glucose, POC 86 70 - 199 mg/dL Blood 07/19/2024 11:4 5 PM CADASTRAL SURVEYOR 07/19/2024 11:45 PM CADASTRAL SURVEYOR us Iam Savage MD LAB POCT ORDERABLES - DEVICE Fi nal Result LIZET RODRIGUES ([place]) 1 [facility] [place] [employer] [place] [address] * POCT glucose (07/19/2024 8:40 PM CADASTRAL SURVEYOR) Glucose, POC 122 70 - 199 mg/dL Blood 07/19/2024 8:40 PM CADASTRAL SURVEYOR 07/19/2024 8:40 PM CADASTRAL SURVEYOR us Iam Savage MD LAB POCT ORDERABLES - DEVICE Fi nal Result Performing Organization Address [facility] Co de Phone Number LIZET RODRIGUES ([place]) 1 [facility] [place] [employer] [place] [address] * POCT glucose (07/19/2024 4:18 PM CADASTRAL SURVEYOR) Glucose, POC 120 70 - 199 mg/dL Blood 07/19/2024 4:18 PM CADASTRAL SURVEYOR 07/19/2024 4:18 PM CADASTRAL SURVEYOR us Iam Savage MD LAB POCT ORDERABLES - DEVICE Fi nal Result Performing Organization Address [facility]/ZIP Co de Phone Number LIZET RODRIGUES ([place]) 1 [facility] [place] [place] [address] * POCT glucose (07/19/2024 12:49 PM CADASTRAL SURVEYOR) Glucose, POC 125 70 - 199 mg/dL Blood 07/19/2024 12:4 9 PM CADASTRAL SURVEYOR 07/19/2024 12:49 PM CADASTRAL SURVEYOR us Iam Savage MD LAB POCT ORDERABLES - DEVICE Fi nal Result LIZET RODRIGUES ([place]) 1 [facility] [place] [address] * POCT glucose (07/19/2024 7:52 AM CADASTRAL SURVEYOR) Glucose, POC 160 70 - 199 mg/dL Blood 07/19/2024 7:52 AM CADASTRAL SURVEYOR 07/19/2024 7:52 AM CADASTRAL SURVEYOR us Iam Savage MD LAB POCT ORDERABLES - DEVICE Fi nal Result Performing Organization Address City/[facility]/ZIP Co de Phone Number LIZET RODRIGUES ([place]) 1 [facility] [employer] [place] [address] * eGFR (07/19/2024 4:39 AM CADASTRAL SURVEYOR) eGFR 68 >=60 mL/min/1. 73 m2 Comment: Interpretive Data Reference Interval Normal >/= 90 mL/min/1.73m2 Mildly decreased* 60 - 89 mL/min/1.73m2 Mildly to moderately decreased 45 - 59 mL/min/1.73m2 Moderately to severely decreased 30 - 44 mL/min/1.73m2 Severely decreased 15 - 29 mL/min/1.73m2 Kidney Failure < 15 mL/min/1.73m2 *Relative to young adult level Estimated glomerular filtration rate is determined by the 2020 CKD-EPI equation recommended by the National Kidney Foundation (A Unifying Approach to GFR Estimation: Recommendations of the NKF-ASK Task Force on Reassessing the Inclusion of Race in Diagnosing Kidney Disease, JASN 2020). The CKD-EPI equation should not be used for patients with unstable renal function and has not been validated in children and those over 70. Current interpretive data was last reviewed 2021. Blood 07/19/2024 4:39 AM CADASTRAL SURVEYOR 07/19/2024 4:45 AM CADASTRAL SURVEYOR us Iam Savage MD LAB BLOOD ORDERABLES Final Resu lt LIZET RODRIGUES ([place]) 1 [facility] [place] [address] * Triglycerides (07/19/2024 4:39 AM CADASTRAL SURVEYOR) Triglycerides 104 <=149 mg/dL Comment: Interpretive Data Ages < or = 9 years Acceptable: <75 mg/dL Borderline high: 75-99 mg/dL High: >or= 100 mg/dL Ages 10 to 20 years Acceptable: <90 mg/dL Borderline high: 90-129 mg/dL High: >or= 130 mg/dL Ages > or = 20 years Desirable: <150 mg/dL Borderline high: 150-199 mg/dL High: 200-499 mg/dL Very high: >or= 499 mg/dL Literature References: 1. Expert Panel on Integrated Guidelines for Cardiovascular Health and Risk Reduction in Children and Adolescents. Pediatrics 2011;128:S213 2. NCEP Expert Panel. Circulation 2004;110:227 Current Interpretive Data was last revised on 2018. Blood 07/19/2024 4:39 AM CADASTRAL SURVEYOR 07/19/2024 4:45 AM CADASTRAL SURVEYOR Jose L Bishop MD LAB BLOOD ORDERABLES Final Result [facility] ([place]) 1 [facility] [place] [address] * (ABNORMAL) Comprehensive metabolic panel (07/19/2024 4:39 AM CADASTRAL SURVEYOR) Sodium 140 135 - 145 mmol/L Potassium, pl 5.5(H) 3.3 - 4.9 mmol/L [facility] ([place]) Chloride 105 97 - 110 mmol/L [facility] ([place]) CO2 26 22 - 32 mmol/L [facility] ([place]) Anion gap 9 2 - 15 mmol/L [facility] ([place]) BUN 63(H) 6 - 25 mg/dL [facility] ([place]) Creatinine 0.90 0.60 - 1.10 mg/dL [facility] ([place]) Glucose 200(H) 70 - 199 mg/dL [facility] ([place]) Comment: Interpretive Data Fasting glucose >/= 126 mg/dl is diagnostic for diabetes. Fasting is defined as no caloric intake for at least 8 hours. Fasting glucose between 100 mg/dl to 125 mg/dl is diagnostic of prediabetes. In a patient with classic symptoms of hyperglycemia or hyperglycemic crisis, a random glucose >/= 200 mg/dl is diagnostic for diabetes. In the absence of unequivocal hyperglycemia, results should be confirmed by repeat testing. The classification and Diagnosis of Diabetes Diabetes Care 2021; 46: S19-S40. Current interpretive data was last revised 2022. Calcium 8.1(L) 8.5 - 10.3 mg/dL [facility] ([place]) Bilirubin, total 0.2 0.1 - 1.2 mg/dL [facility] ([place]) Protein, pl 6.2(L) 6.5 - 8.5 g/dL [facility] ([place]) Albumin 3.0(L) 3.5 - 5.0 g/dL [facility] ([place]) Alk phos 100 40 - 130 Units/L [facility] ([place]) ALT 46(H) 7 - 45 Units/L [facility] ([place]) AST 33 10 - 45 Units/L [facility] ([place]) Comment:Slightly Hemolyzed S pecimen Blood 07/19/2024 4:39 AM CADASTRAL SURVEYOR 07/19/2024 4:45 AM CADASTRAL SURVEYOR us Iam Savage MD LAB BLOOD ORDERABLES Final Resu lt Performing Organization Address City/[facility]/ZIP Co de Phone Number LIZET RODRIGUES ([place]) 1 [facility] [place] [employer] [place] [address] * POCT glucose (07/19/2024 4:38 AM CADASTRAL SURVEYOR) Glucose, POC 186 70 - 199 mg/dL Blood 07/19/2024 4:38 AM CADASTRAL SURVEYOR 07/19/2024 4:38 AM CADASTRAL SURVEYOR us Iam Savage MD LAB POCT ORDERABLES - DEVICE Fi nal Result Performing Organization Address City/[facility]/ZIP Co de Phone Number LIZET [facility] ([place]) 1 [facility] [place] [employer] [place] [address] * POCT glucose (07/18/2024 11:56 PM CADASTRAL SURVEYOR) Glucose, POC 176 70 - 199 mg/dL Blood 07/18/2024 11:5 6 PM CADASTRAL SURVEYOR 07/18/2024 11:56 PM CADASTRAL SURVEYOR us Iam Savage MD LAB POCT ORDERABLES - DEVICE Fi nal Result Performing Organization Address City/[facility]/ZIP Co de Phone Number [facility] ([place]) 1 [facility] [place] [employer] [place] [address] * POCT glucose (07/18/2024 7:58 PM CADASTRAL SURVEYOR) Glucose, POC 165 70 - 199 mg/dL Blood 07/18/2024 7:58 PM CADASTRAL SURVEYOR 07/18/2024 7:58 PM CADASTRAL SURVEYOR us Iam Savage MD LAB POCT ORDERABLES - DEVICE Fi nal Result Performing Organization Address [facility] Co de Phone Number [facility] ([place]) 1 [facility] [place] [place] [address] * POCT glucose (07/18/2024 4:03 PM CADASTRAL SURVEYOR) Glucose, POC 195 70 - 199 mg/dL Blood 07/18/2024 4:03 PM CADASTRAL SURVEYOR 07/18/2024 4:03 PM CADASTRAL SURVEYOR us Iam Savage MD LAB POCT ORDERABLES - DEVICE Fi nal Result Performing Organization Address City/[facility] Co de Phone Number [facility] ([place]) 1 [facility] [place] [place] [address] * POCT glucose (07/18/2024 12:11 PM CADASTRAL SURVEYOR) Glucose, POC 160 70 - 199 mg/dL Blood 07/18/2024 12:1 1 PM CADASTRAL SURVEYOR 07/18/2024 12:11 PM CADASTRAL SURVEYOR us Iam Savage MD LAB POCT ORDERABLES - DEVICE Fi nal Result LIZET RODRIGUES ([place]) 1 [facility] [place] [address] * POCT glucose (07/18/2024 8:58 AM CADASTRAL SURVEYOR) Glucose, POC 165 70 - 199 mg/dL Blood 07/18/2024 8:58 AM CADASTRAL SURVEYOR 07/18/2024 8:58 AM CADASTRAL SURVEYOR Iam Savage MD LAB POCT ORDERABLES - DEVICE Fi nal Result Performing Organization Address City/[facility] Co de Phone Number LIZET RODRIGUES ([place]) 1 [facility] [place] [employer] [place] [address] * (ABNORMAL) Differential, auto (07/18/2024 6:46 AM CADASTRAL SURVEYOR) Neutrophil abs 6.8(H) 1.5 - 6.5 K/cumm Imm gran abs 0.1 0.0 - 0.1 K/cumm [facility] ([place]) Lymphocyte abs 0.7(L) 0.8 - 3.3 K/cumm [facility] ([place]) Monocyte abs 0.5 0.2 - 0.8 K/cumm [facility] ([place]) Eosinophil abs 0.0 0.0 - 0.5 K/cumm [facility] ([place]) Basophil abs 0.0 0.0 - 0.1 K/cumm [facility] ([place]) Neutrophil pct 83.5 % [facility] ([place]) Comment: Interpretive Data Percent cell count reference ranges are not reported, since discordance with absolute values may lead to misinterpretation of CBC data. Current Interpretive Data was last revised on 2017. Imm gran pct 1.6 % [facility] ([place]) Comment: Interpretive Data Percent cell count reference ranges are not reported, since discordance with absolute values may lead to misinterpretation of CBC data. Current Interpretive Data was last revised on 2017. Lymphocyte pct 8.7 % [facility] ([place]) Comment: Interpretive Data Percent cell count reference ranges are not reported, since discordance with absolute values may lead to misinterpretation of CBC data. Current Interpretive Data was last revised on 2017. Monocyte pct 6.2 % [facility] ([place]) Comment: Interpretive Data Percent cell count reference ranges are not reported, since discordance with absolute values may lead to misinterpretation of CBC data. Current Interpretive Data was last revised on 2017. Eosinophil pct 0.0 % [facility] ([place]) Comment: Interpretive Data Percent cell count reference ranges are not reported, since discordance with absolute values may lead to misinterpretation of CBC data. Current Interpretive Data was last revised on 2017. Basophil pct 0.0 % [facility] ([place]) Comment: Interpretive Data Percent cell count reference ranges are not reported, since discordance with absolute values may lead to misinterpretation of CBC data. Current Interpretive Data was last revised on 2017. Blood 07/18/2024 6:46 AM CADASTRAL SURVEYOR 07/18/2024 6:50 AM CADASTRAL SURVEYOR us Iam Savage MD LAB BLOOD ORDERABLES Final Resu lt [facility] ([place]) 1 [facility] Department of Laboratories [place], [place] [id number] * (ABNORMAL) CBC with auto differential (07/18/2024 6:46 AM CADASTRAL SURVEYOR) WBC 8.1 3.8 - 9.9 K/cumm Hgb 9.5(L) 11.9 - 15.5 g/dL [facility] ([place]) Hct 29.4(L) 35.6 - 45.5 % [facility] ([place]) Plt 256 150 - 400 K/cumm [facility] ([place]) MPV 10.9 9.1 - 12.3 fL [facility] ([place]) RBC 3.29(L) 3.90 - 5.20 M/cumm [facility] ([place]) MCV 89.4 81.3 - 96.4 fL [facility] ([place]) MCH 28.9 27.1 - 33.3 pg [facility] ([place]) MCHC 32.3 32.3 - 35.7 g/dL LIZET RODRIGUES ([place]) RDW CV 14.7 11.1 - 14.9 % LIZET RODRIGUES ([place]) RDW SD 47.9 35.7 - 48.1 fL LIZET RODRIGUES ([place]) NRBC abs 0.00 0.00 - 0.01 K/cumm LI[facility]OD[facility] ([place]) Blood 07/18/2024 6:46 AM CADASTRAL SURVEYOR 07/18/2024 6:50 AM CADASTRAL SURVEYOR us Iam Savage MD LAB BLOOD ORDERABLES Final Resu lt Performing Organization Address City/[facility]/ZIP Co de Phone Number LIZET [place]) 1 [facility] Department [place] [address] * (ABNORMAL) eGFR (07/18/2024 3:30 AM CADASTRAL SURVEYOR) eGFR 54(L) >=60 mL/min/1. 73 m2 Comment: Interpretive Data Reference Interval Normal >/= 90 mL/min/1.73m2 Mildly decreased* 60 - 89 mL/min/1.73m2 Mildly to moderately decreased 45 - 59 mL/min/1.73m2 Moderately to severely decreased 30 - 44 mL/min/1.73m2 Severely decreased 15 - 29 mL/min/1.73m2 Kidney Failure < 15 mL/min/1.73m2 *Relative to young adult level Estimated glomerular filtration rate is determined by the 2020 CKD-EPI equation recommended by the National Kidney Foundation (A Unifying Approach to GFR Estimation: Recommendations of the NKF-ASK Task Force on Reassessing the Inclusion of Race in Diagnosing Kidney Disease, JASN 2020). The CKD-EPI equation should not be used for patients with unstable renal function and has not been validated in children and those over 70. Current interpretive data was last reviewed 2021. Blood 07/18/2024 3:30 AM CADASTRAL SURVEYOR 07/18/2024 4:05 AM CADASTRAL SURVEYOR us Iam Savage MD LAB BLOOD ORDERABLES Final Resu lt [facility] ([place]) 1 [facility] [place] [address] * (ABNORMAL) Comprehensive metabolic panel (07/18/2024 3:30 AM CADASTRAL SURVEYOR) Sodium 137 135 - 145 mmol/L Potassium, pl 5.3(H) 3.3 - 4.9 mmol/L [facility] ([place]) Chloride 103 97 - 110 mmol/L [facility] ([place]) CO2 22 22 - 32 mmol/L [facility] ([place]) Anion gap 13 2 - 15 mmol/L [facility] ([place]) BUN 56(H) 6 - 25 mg/dL [facility] ([place]) Creatinine 1.10 0.60 - 1.10 mg/dL [facility] ([place]) Glucose 202(H) 70 - 199 mg/dL [facility] ([place]) Comment: Interpretive Data Fasting glucose >/= 126 mg/dl is diagnostic for diabetes. Fasting is defined as no caloric intake for at least 8 hours. Fasting glucose between 100 mg/dl to 125 mg/dl is diagnostic of prediabetes. In a patient with classic symptoms of hyperglycemia or hyperglycemic crisis, a random glucose >/= 200 mg/dl is diagnostic for diabetes. In the absence of unequivocal hyperglycemia, results should be confirmed by repeat testing. The classification and Diagnosis of Diabetes Diabetes Care 2021; 46: S19-S40. Current interpretive data was last revised 2022. Calcium 8.3(L) 8.5 - 10.3 mg/dL [facility] ([place]) Bilirubin, total 0.2 0.1 - 1.2 mg/dL [facility] ([place]) Protein, pl 5.9(L) 6.5 - 8.5 g/dL [facility] ([place]) Albumin 3.0(L) 3.5 - 5.0 g/dL [facility] ([place]) Alk phos 102 40 - 130 Units/L [facility] ([place]) ALT 49(H) 7 - 45 Units/L [facility] ([place]) AST 45 10 - 45 Units/L [facility] ([place]) Blood 07/18/2024 3:30 AM CADASTRAL SURVEYOR 07/18/2024 4:05 AM CADASTRAL SURVEYOR us Iam Savage MD LAB BLOOD ORDERABLES Final Resu lt [facility] ([place]) [address] [facility] [place] [address] * (ABNORMAL) POCT glucose (07/18/2024 3:28 AM CADASTRAL SURVEYOR) Glucose, POC 200(H) 70 - 199 mg/dL Blood 07/18/2024 3:28 AM CADASTRAL SURVEYOR 07/18/2024 3:28 AM CADASTRAL SURVEYOR us Iam Savage MD LAB POCT ORDERABLES - DEVICE Fi nal Result Performing Organization Address [facility] Co de Phone Number [facility] R[facility]IG[facility] ([place]) 1 [facility] [place] [place] [address] * POCT glucose (07/17/2024 11:55 PM CADASTRAL SURVEYOR) Glucose, POC 199 70 - 199 mg/dL Blood 07/17/2024 11:5 5 PM CADASTRAL SURVEYOR 07/17/2024 11:55 PM CADASTRAL SURVEYOR us Iam Savage MD LAB POCT ORDERABLES - DEVICE Fi nal Result Performing Organization Address City/[facility]/ZIP Co de Phone Number [facility] ([place]) 1 [facility] [place] [employer] [place] [address] * POCT glucose (07/17/2024 8:42 PM CADASTRAL SURVEYOR) Glucose, POC 182 70 - 199 mg/dL Blood 07/17/2024 8:42 PM CADASTRAL SURVEYOR 07/17/2024 8:42 PM CADASTRAL SURVEYOR us Iam Savage MD LAB POCT ORDERABLES - DEVICE Fi nal Result [facility] ([place]) 1 [facility] [place] [place] [address] * POCT glucose (07/17/2024 4:20 PM CADASTRAL SURVEYOR) Glucose, POC 183 70 - 199 mg/dL Blood 07/17/2024 4:20 PM CADASTRAL SURVEYOR 07/17/2024 4:20 PM CADASTRAL SURVEYOR us Iam Savage MD LAB POCT ORDERABLES - DEVICE Fi nal Result [facility] ([place]) 1 [facility] [place] [place] [address] * POCT glucose (07/17/2024 11:43 AM CADASTRAL SURVEYOR) Glucose, POC 160 70 - 199 mg/dL Blood 07/17/2024 11:4 3 AM CADASTRAL SURVEYOR 07/17/2024 11:43 AM CADASTRAL SURVEYOR us Iam Savage MD LAB POCT ORDERABLES - DEVICE Fi nal Result Performing Organization Address City/[facility]/ZIP Co de Phone Number [facility] ([place]) 1 [facility] [employer] [place] [address] * POCT glucose (07/17/2024 7:22 AM CADASTRAL SURVEYOR) Glucose, POC 143 70 - 199 mg/dL Blood 07/17/2024 7:22 AM CADASTRAL SURVEYOR 07/17/2024 7:22 AM CADASTRAL SURVEYOR us Iam Savage MD LAB POCT ORDERABLES - DEVICE Fi nal Result [facility] ([place]) 1 [facility] [place] [place] [address] * POCT glucose (07/17/2024 3:24 AM CADASTRAL SURVEYOR) Glucose, POC 146 70 - 199 mg/dL Blood 07/17/2024 3:24 AM CADASTRAL SURVEYOR 07/17/2024 3:24 AM CADASTRAL SURVEYOR Iam Savage MD LAB POCT ORDERABLES - DEVICE Fi nal Result Performing Organization Address [facility] Co de Phone Number LIZET RODRIG[facility] ([place]) 1 [facility] [employer] [place] [employer] [place] [address] * (ABNORMAL) eGFR (07/17/2024 3:23 AM CADASTRAL SURVEYOR) eGFR 58(L) >=60 mL/min/1. 73 m2 Comment: Interpretive Data Reference Interval Normal >/= 90 mL/min/1.73m2 Mildly decreased* 60 - 89 mL/min/1.73m2 Mildly to moderately decreased 45 - 59 mL/min/1.73m2 Moderately to severely decreased 30 - 44 mL/min/1.73m2 Severely decreased 15 - 29 mL/min/1.73m2 Kidney Failure < 15 mL/min/1.73m2 *Relative to young adult level Estimated glomerular filtration rate is determined by the 2020 CKD-EPI equation recommended by the National Kidney Foundation (A Unifying Approach to GFR Estimation: Recommendations of the NKF-ASK Task Force on Reassessing the Inclusion of Race in Diagnosing Kidney Disease, JASN 2020). The CKD-EPI equation should not be used for patients with unstable renal function and has not been validated in children and those over 70. Current interpretive data was last reviewed 2021. Blood 07/17/2024 3:23 AM CADASTRAL SURVEYOR 07/17/2024 3:42 AM CADASTRAL SURVEYOR Iam Savage MD LAB BLOOD ORDERABLES Final Resu lt Performing Organization Address [facility]/ZIP Co de Phone Number [facility] ([place]) 1 [facility] [employer] [place] [employer] [place] [address] * (ABNORMAL) Comprehensive metabolic panel (07/17/2024 3:23 AM CADASTRAL SURVEYOR) Sodium 135 135 - 145 mmol/L Potassium, pl 5.8(H) 3.3 - 4.9 mmol/L [facility] ([place]) Chloride 102 97 - 110 mmol/L [facility] ([place]) CO2 24 22 - 32 mmol/L [facility] ([place]) Anion gap 9 2 - 15 mmol/L [facility] ([place]) BUN 44(H) 6 - 25 mg/dL [facility] ([place]) Creatinine 1.03 0.60 - 1.10 mg/dL [facility] ([place]) Glucose 155 70 - 199 mg/dL [facility] ([place]) Comment: Interpretive Data Fasting glucose >/= 126 mg/dl is diagnostic for diabetes. Fasting is defined as no caloric intake for at least 8 hours. Fasting glucose between 100 mg/dl to 125 mg/dl is diagnostic of prediabetes. In a patient with classic symptoms of hyperglycemia or hyperglycemic crisis, a random glucose >/= 200 mg/dl is diagnostic for diabetes. In the absence of unequivocal hyperglycemia, results should be confirmed by repeat testing. The classification and Diagnosis of Diabetes Diabetes Care 2021; 46: S19-S40. Current interpretive data was last revised 2022. Calcium 8.1(L) 8.5 - 10.3 mg/dL [facility] ([place]) Bilirubin, total 0.2 0.1 - 1.2 mg/dL [facility] ([place]) Protein, pl 5.4(L) 6.5 - 8.5 g/dL [facility] ([place]) Albumin 2.2(L) 3.5 - 5.0 g/dL [facility] ([place]) Alk phos 90 40 - 130 Units/L [facility] ([place]) ALT 53(H) 7 - 45 Units/L [facility] ([place]) AST 53(H) 10 - 45 Units/L [facility] ([place]) Comment:Slightly Hemolyzed S pecimen Blood 07/17/2024 3:23 AM CADASTRAL SURVEYOR 07/17/2024 3:42 AM CADASTRAL SURVEYOR us Iam Savage MD LAB BLOOD ORDERABLES Final Resu lt [facility] ([place]) 1 [facility] [place] [address] * POCT glucose (07/16/2024 11:22 PM CADASTRAL SURVEYOR) Glucose, POC 150 70 - 199 mg/dL Blood 07/16/2024 11:2 2 PM CADASTRAL SURVEYOR 07/16/2024 11:22 PM CADASTRAL SURVEYOR us Iam Savage MD LAB POCT ORDERABLES - DEVICE Fi nal Result [facility] ([place]) 1 [facility] [place] [employer] [place] [address] * POCT glucose (07/16/2024 7:18 PM CADASTRAL SURVEYOR) Glucose, POC 164 70 - 199 mg/dL Blood 07/16/2024 7:18 PM CADASTRAL SURVEYOR 07/16/2024 7:18 PM CADASTRAL SURVEYOR us Iam Savage MD LAB POCT ORDERABLES - DEVICE Fi nal Result Performing Organization Address City/[facility]/ZIP Co de Phone Number [facility] RODRIG[facility] ([place]) [address] [facility] [place] [employer] [place] [address] * POCT glucose (07/16/2024 5:12 PM CADASTRAL SURVEYOR) Glucose, POC 176 70 - 199 mg/dL Blood 07/16/2024 5:12 PM CADASTRAL SURVEYOR 07/16/2024 5:12 PM CADASTRAL SURVEYOR us Iam Savage MD LAB POCT ORDERABLES - DEVICE Fi nal Result [facility] ROD[facility] ([place]) 1 [facility] [place] [place] [address] * POCT glucose (07/16/2024 12:20 PM CADASTRAL SURVEYOR) Glucose, POC 159 70 - 199 mg/dL Blood 07/16/2024 12:2 0 PM CADASTRAL SURVEYOR 07/16/2024 12:20 PM CADASTRAL SURVEYOR us Iam Savage MD LAB POCT ORDERABLES - DEVICE Fi nal Result [facility] ROD[facility]IG[facility] ([place]) 1 [facility] [place] [employer] [place] [address] * POCT glucose (07/16/2024 8:46 AM CADASTRAL SURVEYOR) Glucose, POC 134 70 - 199 mg/dL Blood 07/16/2024 8:46 AM CADASTRAL SURVEYOR 07/16/2024 8:46 AM CADASTRAL SURVEYOR us Iam Savage MD LAB POCT ORDERABLES - DEVICE Fi nal Result Performing Organization Address [facility] Co de Phone Number [facility] RODRIG[facility] ([place]) 1 [facility] [place] [employer] [place] [address] * (ABNORMAL) eGFR (07/16/2024 3:22 AM CADASTRAL SURVEYOR) eGFR 58(L) >=60 mL/min/1. 73 m2 Comment: Interpretive Data Reference Interval Normal >/= 90 mL/min/1.73m2 Mildly decreased* 60 - 89 mL/min/1.73m2 Mildly to moderately decreased 45 - 59 mL/min/1.73m2 Moderately to severely decreased 30 - 44 mL/min/1.73m2 Severely decreased 15 - 29 mL/min/1.73m2 Kidney Failure < 15 mL/min/1.73m2 *Relative to young adult level Estimated glomerular filtration rate is determined by the 2020 CKD-EPI equation recommended by the National Kidney Foundation (A Unifying Approach to GFR Estimation: Recommendations of the NKF-ASK Task Force on Reassessing the Inclusion of Race in Diagnosing Kidney Disease, JASN 2020). The CKD-EPI equation should not be used for patients with unstable renal function and has not been validated in children and those over 70. Current interpretive data was last reviewed 2021. Blood 07/16/2024 3:22 AM CADASTRAL SURVEYOR 07/16/2024 3:46 AM CADASTRAL SURVEYOR us Iam Savage MD LAB BLOOD ORDERABLES Final Resu lt Performing Organization Address City/[facility]/ZIP Co de Phone Number LIZET RODRIGUES ([place]) 1 [facility] [place] [address] * POCT glucose (07/16/2024 3:22 AM CADASTRAL SURVEYOR) Glucose, POC 172 70 - 199 mg/dL Blood 07/16/2024 3:22 AM CADASTRAL SURVEYOR 07/16/2024 3:22 AM CADASTRAL SURVEYOR Iam Savage MD LAB POCT ORDERABLES - DEVICE Fi nal Result Performing Organization Address [facility] Co de Phone Number [facility] ([place]) 1 [place] [address] * (ABNORMAL) Triglycerides (07/16/2024 3:22 AM CADASTRAL SURVEYOR) Triglycerides 210(H) <=149 mg/dL Comment: Interpretive Data Ages < or = 9 years Acceptable: <75 mg/dL Borderline high: 75-99 mg/dL High: >or= 100 mg/dL Ages 10 to 20 years Acceptable: <90 mg/dL Borderline high: 90-129 mg/dL High: >or= 130 mg/dL Ages > or = 20 years Desirable: <150 mg/dL Borderline high: 150-199 mg/dL High: 200-499 mg/dL Very high: >or= 499 mg/dL Literature References: 1. Expert Panel on Integrated Guidelines for Cardiovascular Health and Risk Reduction in Children and Adolescents. Pediatrics 2011;128:S213 2. NCEP Expert Panel. Circulation 2004;110:227 Current Interpretive Data was last revised on 2018. Blood 07/16/2024 3:22 AM CADASTRAL SURVEYOR 07/16/2024 3:46 AM CADASTRAL SURVEYOR us Jose L Bishop MD LAB BLOOD ORDERABLES Final Result Performing Organization Address City/[facility] Co de Phone Number [facility] ([place]) 1 [place] [address] * (ABNORMAL) Comprehensive metabolic panel (07/16/2024 3:22 AM CADASTRAL SURVEYOR) Sodium 139 135 - 145 mmol/L Potassium, pl 5.2(H) 3.3 - 4.9 mmol/L [facility] ([place]) Chloride 105 97 - 110 mmol/L [facility] ([place]) CO2 25 22 - 32 mmol/L [facility] ([place]) Anion gap 9 2 - 15 mmol/L [facility] ([place]) BUN 38(H) 6 - 25 mg/dL [facility] ([place]) Creatinine 1.03 0.60 - 1.10 mg/dL [facility] ([place]) Glucose 172 70 - 199 mg/dL [facility] ([place]) Comment: Interpretive Data Fasting glucose >/= 126 mg/dl is diagnostic for diabetes. Fasting is defined as no caloric intake for at least 8 hours. Fasting glucose between 100 mg/dl to 125 mg/dl is diagnostic of prediabetes. In a patient with classic symptoms of hyperglycemia or hyperglycemic crisis, a random glucose >/= 200 mg/dl is diagnostic for diabetes. In the absence of unequivocal hyperglycemia, results should be confirmed by repeat testing. The classification and Diagnosis of Diabetes Diabetes Care 2021; 46: S19-S40. Current interpretive data was last revised 2022. Calcium 7.8(L) 8.5 - 10.3 mg/dL [facility] ([place]) Bilirubin, total 0.2 0.1 - 1.2 mg/dL [facility] ([place]) Protein, pl 5.5(L) 6.5 - 8.5 g/dL [facility] ([place]) Albumin 2.5(L) 3.5 - 5.0 g/dL [facility] ([place]) Alk phos 104 40 - 130 Units/L [facility] ([place]) ALT 74(H) 7 - 45 Units/L [facility] ([place]) AST 98(H) 10 - 45 Units/L [facility] ([place]) Blood 07/16/2024 3:22 AM CADASTRAL SURVEYOR 07/16/2024 3:46 AM CADASTRAL SURVEYOR us Iam Savage MD LAB BLOOD ORDERABLES Final Resu lt [facility] ([place]) 1 [facility] [place] [address] * Dexa Axial Skeleton Bone Density 1 or 2 Site (03/09/2023 12:56 PM CDT) Anatomical Region Laterality Modality Body N/A Other 03/09/2023 10:5 7 PM CDT Narrative 03/09/2023 10:57 PM CDT EXAM DESCRIPTION: DEXA AXIAL SKELETON BONE DENSITY 1 OR MORE SITES REASON FOR STUDY: 72 y/o year old F with given history of: OTHER SPECIFIED PERSONAL RISK FACTORS, NOT ELSEWHERE CLASSIFIED Osteoporosis screening Post menopausal Survey Research Professor/Model: Zedmo (S/N [id number]) CLINICAL INFORMATION: Current height: 60 inches Maximum height: 16 inches Weight: 118 pounds Risk factors: Postmenopausal, smoking history COMPARISON: 05/29/2019 FINDINGS: AP LUMBAR SPINE L1-L4: Total BMD is 0.704 g/cm2 T-score is -3.1 LEFT HIP: Total BMD is 0.622 g/cm2 T-score is -2.6 Femoral neck BMD is 0.517 g/cm2 T-score is -3.0 FRAX: FRAX not reported due to T-scores of hip, femoral neck and/or spine being at or below -2.5 (Osteoporosis). IMPRESSION: Osteoporosis. REFERENCE: Bone mineral density: Normal (T-score above or = -1.0) Low bone mass (T-score between -1.0 and -2.5) replaces the previously used term osteopenia Osteoporosis (T-score = or below -2.5) Medical evaluation for secondary causes of low bone mineral density may be appropriate. FRAX is a World Health Organization validated fracture risk assessment tool that calculates a person's 10 year probability of a major osteoporosis related fracture and hip fracture. According to the National Osteoporosis Foundation guidelines, postmenopausal women and men age 50 or older with low bone mass and a 10 year probability of a major osteoporosis related fracture = or greater than 20% or a 10 year probability of a hip fracture = or greater than 3% should be considered for treatment. For further information, including treatment recommendations, please refer to the 2019 ISCD Official Positions (http://www.iscd.org) and the NOF's Clinician's Guide to Prevention and Treatment of Osteoporosis (http://www.nof.org/professionals/clinical-guidelines) THIS IS AN ELECTRONICALLY VERIFIED FINAL REPORT 03/09/2023 10:57 PM - Electronically signed by Billy Nam M.D. MF: JOSE Report ID: [id number] Reading Location: [id number] Procedure Note Billy Nam MD - 03/09/2023 EXAM DESCRIPTION: DEXA AXIAL SKELETON BONE DENSITY 1 OR MORE SITES REASON FOR STUDY: 72 y/o year old F with given history of: OTHER SPECIFIED PERSONAL RISK FACTORS, NOT ELSEWHERE CLASSIFIED Osteoporosis screening Post menopausal Survey Research Professor/Model: Zedmo (S/N [id number]) CLINICAL INFORMATION: Current height: 60 inches Maximum height: 16 inches Weight: 118 pounds Risk factors: Postmenopausal, smoking history COMPARISON: 05/29/2019 FINDINGS: AP LUMBAR SPINE L1-L4: Total BMD is 0.704 g/cm2 T-score is -3.1 LEFT HIP: Total BMD is 0.622 g/cm2 T-score is -2.6 Femoral neck BMD is 0.517 g/cm2 T-score is -3.0 FRAX: FRAX not reported due to T-scores of hip, femoral neck and/or spine beingat or below -2.5 (Osteoporosis). IMPRESSION: Osteoporosis. REFERENCE: Bone mineral density: Normal (T-score above or = -1.0) Low bone mass (T-score between -1.0 and -2.5) replaces thepreviously used term osteopenia Osteoporosis (T-score = or below -2.5) Medical evaluation for secondary causes of low bone mineral density may be appropriate. FRAX is a World Health Organization validated fracture risk assessmenttool that calculates a person's 10 year probability of a major osteoporosisrelated fracture and hip fracture. According to the National OsteoporosisFoundation guidelines, postmenopausal women and men age 50 or older with low bonemass and a 10 year probability of a major osteoporosis related fracture = or greater than 20% or a 10 year probability of a hip fracture = or greaterthan 3% should be considered for treatment. For further information, including treatment recommendations, please referto the 2019 ISCD Official Positions (http://www.iscd.org) and the NOF's Clinician's Guide to Prevention and Treatment of Osteoporosis (http://www.nof.org/professionals/clinical-guidelines) THIS IS AN ELECTRONICALLY VERIFIED FINAL REPORT 03/09/2023 10:57 PM - Electronically signed by Billy Nam M.D. MF: JOSE Report ID: [id number] Reading Location: [place] [id number] Saulo Chin MD IMG DXA PROCEDURES Final Resu lt * Screening Mammogram Bilateral W Tomi (03/09/2023 12:46 PM CDT) Anatomical Region Laterality Modality Breast Bilateral Mammography 03/09/2023 12:5 3 PM CDT Impressions 03/09/2023 12:53 PM CDT There is no mammographic evidence of malignancy. A 1 year screening mammogram is recommended. BI-RADS: 2 - Benign. The patient has been or will be contacted. The patient will be entered into a reminder system with a target due date of 1 year for her next mammogram. Electronically signed by: Kenton Woodward M.D. Narrative 03/09/2023 12:53 PM CDT EXAMINATION: SCREENING MAMMOGRAM BILATERAL W TOMI ORDERING HEALTHCARE PROVIDER: SAULO CHIN HISTORY: Routine screening mammography. COMPARISON: 05/29/2019, 02/01/2010 TECHNIQUE: CC and MLO views of the bilateral breasts were obtained with digital technique using breast tomosynthesis with C view. Computer aided detection was utilized. FINDINGS: DENSITY: The tissue of the bilateral breasts is almost entirely fatty. BREASTS: There are benign calcifications in both breasts. There is an unchanged small benign circumscribed mass in the outer right breast. There is no new suspicious finding in either breast on mammogram. Saulo Chin MD G MAMMO PROCEDURES Final Re sult from Last 3 Months or Most Recently Relevant to Health Maintenance Insurance MEDICARE COMMERCIAL GENERIC MEDICARE AETNA SENIOR SUPPLEMENT AETNA [facility] ADVANTRA Advance Directives For more information, please contact: [phone] Documents on File Type Date Recorded Patient Sales Assoc Expl anation ADVANCE DIRECTIVE 07/21/2024 10:21 AM Nam r of Automation Specialist-Medical * Full Code (Latest Code Status on File) Date Activated Date Inactivated Comments 07/10/2024 7:21 PM 07/28/2024 8:46 PM Care Teams Patient Services Specialist Relationship Specialty Start Date End Date Saulo Chin MD PCP - General 05/29/19
--- OUTSIDE RECORDS SUMMARY | 2024-10-14 14:55 | XMS_ITS | Referral Summary ---
[facility] Address [address] [place] [address] Care Team Providers Care Paint Sprayer Sandblaster Name Role Phone Saulo Chin MD Primary Care Provider [phone] Encounters Date Type Department Care Team Description 07/10/2024 4:42 PM ELECTRICAL ASSEMBLER - 07/28/2024 4:41 PM ELECTRICAL ASSEMBLER Hospital Encounter [facility] IMU [address] [id number] Vanessa Ken MD Richards, Greg Shirley Jr., MD David, MD Yesika Hernández Salvador, MD Masetti, Paolo, MD Acute respiratory failure, unspecified whether with hypoxia or hypercapnia (HCC) (Primary Dx); Influenza A; Chronic obstructive pulmonary disease, unspecified COPD type (HCC); Dehydration; Generalized weakness; Severe sepsis (HCC); Essential hypertension; 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 VBG with compensated metabolic acidosis. Suspect metabolic compensation secondary to respiratory status. Lactic acid as previously has resolved. Plan: Transferred to ICU for potential BiPAP trial and possible intubation Tobacco use 07/11/2024 Assessment & Plan (07/12/2024 2:44 PM ELECTRICAL ASSEMBLER): Chronic. Cessation since onset influenza. Plan: Recommend continue cessation Continue nicotine patch Severe sepsis 07/11/2024 Assessment & Plan (07/12/2024 2:41 PM ELECTRICAL ASSEMBLER): Present on admission. Risk factor of viral respiratory illness. Lactic acidosis on admission had resolved. Plan: See assessment and plan for influenza. COPD (chronic obstructive pulmonary disease) Assessment & Plan (07/12/2024 2:45 PM ELECTRICAL ASSEMBLER): Potential new diagnosis. Risk factors of prior [...] hypoxia Assessment & Plan (07/12/2024 2:35 PM ELECTRICAL ASSEMBLER): Previously on room air. Suspected secondary to influenza a diagnosis. Concern over labor breathing over possible impending respiratory failure. Plan: Transfer to ICU Influenza A 07/10/2024 Assessment & Plan (07/12/2024 2:37 PM ELECTRICAL ASSEMBLER): Positive status on admission. Was 4-5 days of symptom onset. Risk factors of prior tobacco use and possible new onset COPD exacerbation. Plan: Continue Tamiflu 07/10- Continue Mucinex Add pep therapy Now transferred to ICU Trial of Solu-Medrol 60 mg given worsening distress Assessment & Plan (07/10/2024 9:59 PM ELECTRICAL ASSEMBLER): Patients with flu like symptoms and positive [...] 07/10/2024 Assessment & Plan (07/12/2024 2:38 PM ELECTRICAL ASSEMBLER): Chronic. Prior [place] status post 2 stents. Show troponins on admission reassuring. EKG on admission less likely for ischemia. Plan: Continue aspirin 81 mg daily Continue Lipitor 40 mg daily Continue Lopressor 50 mg b.I.d. Assessment & Plan (07/10/2024 10:04 PM ELECTRICAL ASSEMBLER): Hx [place] s/p 2x stents, uncertain dates as to when EKG done in ED without significant ST elevation or depression - continue aspirin 81 mg po od, lipitor 40 mg po od, lopressor 50 mg po bid Essential hypertension 07/10/2024 Assessment & Plan (07/12/2024 2:39 PM ELECTRICAL ASSEMBLER): Chronic. Vital signs reviewed on 07/12 and elevated BP. Lisinopril was held on admission. Elevation likely secondary to respiratory distress Plan: Will transfer to ICU Assessment & Plan (07/10/2024 10:03 PM ELECTRICAL ASSEMBLER): Chronic and uncontrolled issue On lisinopril 40 [...] 07/10/2024 Assessment & Plan (07/10/2024 9:56 PM ELECTRICAL ASSEMBLER): Patient noted to have Cr 1.36 over unknown baseline. Suspect due to relative hypovolemia and systemic illness. Currently producing urine; will defer additional lab/imaging diagnostics pending fluid resuscitation. - BMP daily - s/p 1 L IVF - Consider UA with microscopy, Renal/bladder US, Karie, UCr if refractory or significant REYNALDO - renally dose medications Immunizations Immunization Administration Dates Next Due Influenza, Unspecified 03/20/2024 Social History Tobacco Use Types Packs/Day Years Used Date Smoking Tobacco: Every Day Cigarettes Tobacco Cessation:Ready to Q uit: Not Asked; Counseling Given: Not Answered Alcohol Use Standard Drinks/Week Comments No 0 (1 standard drink = 0.6 oz pur e alcohol) [employer] Utilities Answer Date Recorded In the past 12 months has [employer], gas, oil, or water [employer] threatened to shut off services in your [...] week 07/11/2024 How often do you attend chur ch or orthodox services? Never 07/11/2024 Do you belong to any clubs o r organizations such as orthodoxy groups, unions, fraternal or athletic groups, or [...] any time in the past 12 [facility], were you homeless or living in a fci (including now)? No 07/11/2024 Personal Safety Answer Date Recorded Have you ever been in or are you currently in a harmful physical or emotional relationship or is someone making you feel afraid or unsafe? Denies 07/10/2024 Comments No Sex and Gender Information Value Date Recorded Sex Assigned at Not on file Legal Sex Female 12:34 AM ELECTRICAL ASSEMBLER Gender Identity Not on file Sexual Orientation Not on file Last Filed Vital Signs Vital Sign Reading Time Taken Comments Blood Pressure 151/62 07/28/2024 11:13 AM ELECTRICAL ASSEMBLER Pulse 53 07/28/2024 11:13 AM ELECTRICAL ASSEMBLER Temperature 37.2 C (98.9 F) 07/28/2024 11:13 AM ELECTRICAL ASSEMBLER Respiratory Rate 18 07/28/2024 11:1 3 AM ELECTRICAL ASSEMBLER Oxygen Saturation 96% 07/28/2024 11: 13 AM ELECTRICAL ASSEMBLER Inhaled Oxygen Concentration - - Weight 69.8 kg (153 lb 14.1 oz) 07/21/2024 4:35 PM ELECTRICAL ASSEMBLER Height 152.4 cm (5') 07/13/2024 9:33 AM ELECTRICAL ASSEMBLER Body Mass Index 30.05 07/13/2024 9:33 AM ELECTRICAL ASSEMBLER Plan of Treatment Not on file Procedures Procedure Name Priority Date/Time Associated Diagnosis Comments TRIGLYCERIDES Timed 07/28/2024 5:05 AM ELECTRICAL ASSEMBLER DIFFERENTIAL AUTO Timed 07/27/2024 5:1 2 AM ELECTRICAL ASSEMBLER CBC WITH AUTO DIFFERENTIAL Timed 07/27/2024 5:12 AM ELECTRICAL ASSEMBLER EGFR Timed 07/26/2024 4:55 AM ELECTRICAL ASSEMBLER BASIC METABOLIC PANEL Timed 07/26/2024 4:55 AM ELECTRICAL ASSEMBLER TRIGLYCERIDES Timed 07/25/2024 5:[address] HEAD WO CONTRAST IP Routine 07/24/2024 8 :42 AM ELECTRICAL ASSEMBLER DIFFERENTIAL AUTO Timed 07/24/2024 4:5 3 AM ELECTRICAL ASSEMBLER CBC WITH AUTO DIFFERENTIAL Timed 07/24/2024 4:53 AM ELECTRICAL ASSEMBLER XR ABDOMEN AP 1 VIEW ED Urgent/IP Urgent 07/23/2024 9:56 PM ELECTRICAL ASSEMBLER POCT GLUCOSE DEVICE Routine 07/23/2024 8 :51 PM ELECTRICAL ASSEMBLER EGFR Timed 07/23/2024 4:47 AM ELECTRICAL ASSEMBLER HEMOGLOBIN A1C Routine 07/23/2024 4:47 AM ELECTRICAL ASSEMBLER BASIC METABOLIC PANEL Timed 07/23/2024 4:47 AM ELECTRICAL ASSEMBLER POCT GLUCOSE DEVICE Routine 07/23/2024 2 :29 AM ELECTRICAL ASSEMBLER POCT GLUCOSE DEVICE Routine 07/23/2024 1 2:25 AM ELECTRICAL ASSEMBLER POCT GLUCOSE DEVICE Routine 07/22/2024 1 1:44 PM ELECTRICAL ASSEMBLER POCT GLUCOSE DEVICE Routine 07/22/2024 7 :50 PM ELECTRICAL ASSEMBLER POCT GLUCOSE DEVICE Routine 07/22/2024 4 :11 PM ELECTRICAL ASSEMBLER POCT GLUCOSE DEVICE Routine 07/22/2024 1 1:50 AM ELECTRICAL ASSEMBLER POCT GLUCOSE DEVICE Routine 07/22/2024 7 :56 AM ELECTRICAL ASSEMBLER EGFR Routine 07/22/2024 5:51 AM ELECTRICAL ASSEMBLER COMPREHENSIVE METABOLIC PANEL Routine 07/22/2024 5:51 AM ELECTRICAL ASSEMBLER TRIGLYCERIDES Timed 07/22/2024 5:51 AM ELECTRICAL ASSEMBLER POCT GLUCOSE DEVICE Routine 07/22/2024 3 :58 AM ELECTRICAL ASSEMBLER POCT GLUCOSE DEVICE Routine 07/22/2024 1 2:03 AM ELECTRICAL ASSEMBLER POCT GLUCOSE DEVICE Routine 07/21/2024 7 :55 PM ELECTRICAL ASSEMBLER POCT GLUCOSE DEVICE Routine 07/21/2024 4 :55 PM ELECTRICAL ASSEMBLER POCT GLUCOSE DEVICE Routine 07/21/2024 1 1:26 AM ELECTRICAL ASSEMBLER POCT GLUCOSE DEVICE Routine 07/21/2024 7 :56 AM ELECTRICAL ASSEMBLER POCT GLUCOSE DEVICE Routine 07/21/2024 4 :02 AM ELECTRICAL ASSEMBLER DIFFERENTIAL AUTO Add On 07/21/2024 2:2 6 AM ELECTRICAL ASSEMBLER CBC WITH AUTO DIFFERENTIAL Add-On 07/21/2024 2:26 AM ELECTRICAL ASSEMBLER EGFR Routine 07/21/2024 2:26 AM ELECTRICAL ASSEMBLER COMPREHENSIVE METABOLIC PANEL Routine 07/21/2024 2:26 AM ELECTRICAL ASSEMBLER POCT GLUCOSE DEVICE Routine 07/20/2024 1 1:51 PM ELECTRICAL ASSEMBLER POCT GLUCOSE DEVICE Routine 07/20/2024 8 :00 PM ELECTRICAL ASSEMBLER POCT GLUCOSE DEVICE Routine 07/20/2024 4 :03 PM ELECTRICAL ASSEMBLER POCT GLUCOSE DEVICE Routine 07/20/2024 1 1:23 AM ELECTRICAL ASSEMBLER POCT GLUCOSE DEVICE Routine 07/20/2024 8 :39 AM ELECTRICAL ASSEMBLER EGFR Routine 07/20/2024 4:31 AM ELECTRICAL ASSEMBLER COMPREHENSIVE METABOLIC PANEL Routine 07/20/2024 4:31 AM ELECTRICAL ASSEMBLER POCT GLUCOSE DEVICE Routine 07/20/2024 4 :18 AM ELECTRICAL ASSEMBLER POCT GLUCOSE DEVICE Routine 07/19/2024 1 1:45 PM ELECTRICAL ASSEMBLER POCT GLUCOSE DEVICE Routine 07/19/2024 8 :40 PM ELECTRICAL ASSEMBLER POCT GLUCOSE DEVICE Routine 07/19/2024 4 :18 PM ELECTRICAL ASSEMBLER POCT GLUCOSE DEVICE Routine 07/19/2024 1 2:49 PM ELECTRICAL ASSEMBLER POCT GLUCOSE DEVICE Routine 07/19/2024 7 :52 AM ELECTRICAL ASSEMBLER EGFR Routine 07/19/2024 4:39 AM ELECTRICAL ASSEMBLER COMPREHENSIVE METABOLIC PANEL Routine 07/19/2024 4:39 AM ELECTRICAL ASSEMBLER TRIGLYCERIDES Timed 07/19/2024 4:39 AM ELECTRICAL ASSEMBLER POCT GLUCOSE DEVICE Routine 07/19/2024 4 :38 AM ELECTRICAL ASSEMBLER POCT GLUCOSE DEVICE Routine 07/18/2024 1 1:56 PM ELECTRICAL ASSEMBLER POCT GLUCOSE DEVICE Routine 07/18/2024 7 :58 PM ELECTRICAL ASSEMBLER POCT GLUCOSE DEVICE Routine 07/18/2024 4 :03 PM ELECTRICAL ASSEMBLER POCT GLUCOSE DEVICE Routine 07/18/2024 1 2:11 PM ELECTRICAL ASSEMBLER POCT GLUCOSE DEVICE Routine 07/18/2024 8 :58 AM ELECTRICAL ASSEMBLER DIFFERENTIAL AUTO Routine 07/18/2024 6:4 6 AM ELECTRICAL ASSEMBLER CBC WITH AUTO DIFFERENTIAL Routine 07/18/2024 6:46 AM ELECTRICAL ASSEMBLER EGFR Routine 07/18/2024 3:30 AM ELECTRICAL ASSEMBLER COMPREHENSIVE METABOLIC PANEL Routine 07/18/2024 3:30 AM ELECTRICAL ASSEMBLER POCT GLUCOSE DEVICE Routine 07/18/2024 3:28 AM ELECTRICAL ASSEMBLER POCT GLUCOSE DEVICE Routine 07/17/2024 1 1:55 PM ELECTRICAL ASSEMBLER POCT GLUCOSE DEVICE Routine 07/17/2024 8 :42 PM ELECTRICAL ASSEMBLER POCT GLUCOSE DEVICE Routine 07/17/2024 4 :20 PM ELECTRICAL ASSEMBLER POCT GLUCOSE DEVICE Routine 07/17/2024 1 1:43 AM ELECTRICAL ASSEMBLER POCT GLUCOSE DEVICE Routine 07/17/2024 7 :22 AM ELECTRICAL ASSEMBLER POCT GLUCOSE DEVICE Routine 07/17/2024 3 :24 AM ELECTRICAL ASSEMBLER EGFR Routine 07/17/2024 3:23 AM ELECTRICAL ASSEMBLER COMPREHENSIVE METABOLIC PANEL Routine 07/17/2024 3:23 AM ELECTRICAL ASSEMBLER POCT GLUCOSE DEVICE Routine 07/16/2024 1 1:22 PM ELECTRICAL ASSEMBLER POCT GLUCOSE DEVICE Routine 07/16/2024 7 :18 PM ELECTRICAL ASSEMBLER POCT GLUCOSE DEVICE Routine 07/16/2024 5 :12 PM ELECTRICAL ASSEMBLER POCT GLUCOSE DEVICE Routine 07/16/2024 1 2:20 PM ELECTRICAL ASSEMBLER POCT GLUCOSE DEVICE Routine 07/16/2024 8 :46 AM ELECTRICAL ASSEMBLER POCT GLUCOSE DEVICE Routine 07/16/2024 3 :22 AM ELECTRICAL ASSEMBLER EGFR Routine 07/16/2024 3:22 AM ELECTRICAL ASSEMBLER COMPREHENSIVE METABOLIC PANEL Routine 07/16/2024 3:22 AM ELECTRICAL ASSEMBLER TRIGLYCERIDES Timed 07/16/2024 3:22 AM ELECTRICAL ASSEMBLER DEXA AXIAL SKELETON BONE DENSITY 1 OR [...] Maintenance Results * Triglycerides (07/28/2024 5:05 AM ELECTRICAL ASSEMBLER) Triglycerides 114 <=149 mg/dL Comment: Interpretive Data [...] revised on 2018. Blood 07/28/2024 5:05 AM ELECTRICAL ASSEMBLER 07/28/2024 5:43 AM ELECTRICAL ASSEMBLER Jose L Bishop MD LAB BLOOD ORDERABLES Final Result [facility] ([place]) 1 [facility] Department [place] [address] * Differential, auto (07/27/2024 5:12 AM ELECTRICAL ASSEMBLER) Neutrophil abs 3.6 1.5 - 6.5 K/cumm [...] revised on 2017. Blood 07/27/2024 5:12 AM ELECTRICAL ASSEMBLER 07/27/2024 5:35 AM ELECTRICAL ASSEMBLER us Greg Aguilar Jr., MD LAB BLOOD ORDERABLE S Final Result [facility] ([place]) 1 [facility] Department [place] [address] * (ABNORMAL) CBC with auto differential (07/27/2024 5:12 AM ELECTRICAL ASSEMBLER) WBC 5.7 3.8 - 9.9 K/cumm Hgb [...] RDW SD 54.1(H) 35.7 - 48.1 fL [facility] ([place]) NRBC abs 0.02(H) 0.00 - 0.01 K/cumm [facility] ([place]) Blood 07/27/2024 5:12 AM ELECTRICAL ASSEMBLER 07/27/2024 5:35 AM ELECTRICAL ASSEMBLER us Greg Aguilar Jr., MD LAB BLOOD ORDERABLE S Final Result Performing Organization Address City/[facility] Co de Phone Number [facility] ([place]) 1 [facility] [place] [address] * eGFR (07/26/2024 4:55 AM ELECTRICAL ASSEMBLER) eGFR 67 >=60 mL/min/1. 73 m2 Comment: [...] last reviewed 2021. Blood 07/26/2024 4:55 AM ELECTRICAL ASSEMBLER 07/26/2024 5:03 AM ELECTRICAL ASSEMBLER us Greg Aguilar Jr., MD LAB BLOOD ORDERABLE S Final Result Performing Organization Address City/[facility]/ZIP Co de Phone Number [facility] ([place]) 1 [facility] [place] [employer] [place] [address] * (ABNORMAL) Basic metabolic panel (07/26/2024 4:55 AM ELECTRICAL ASSEMBLER) Sodium 138 135 - 145 mmol/L Potassium, pl 3.7 3.3 - 4.9 mmol/L [facility] ([place]) Chloride 108 97 - 110 mmol/L [facility] ([place]) CO2 24 22 - 32 mmol/L [facility] ([place]) Anion gap 6 2 - 15 mmol/L [facility] ([place]) BUN 24 6 - 25 mg/dL [facility] ([place]) Creatinine 0.91 0.60 - 1.10 mg/dL [facility] ([place]) Glucose 87 70 - 199 mg/dL [facility] ([place]) Comment: Interpretive Data Fasting glucose [...] 2022. Calcium 7.8(L) 8.5 - 10.3 mg/dL [facility] ([place]) Blood 07/26/2024 4:55 AM ELECTRICAL ASSEMBLER 07/26/2024 5:03 AM ELECTRICAL ASSEMBLER us Greg Aguilar Jr., MD LAB BLOOD ORDERABLE S Final Result [facility] ([place]) 1 [facility] Department [place] [address] * Triglycerides (07/25/2024 5:27 AM ELECTRICAL ASSEMBLER) Triglycerides 129 <=149 mg/dL Comment: Interpretive Data [...] revised on 2018. Blood 07/25/2024 5:27 AM ELECTRICAL ASSEMBLER 07/25/2024 5:48 AM ELECTRICAL ASSEMBLER Jose L Bishop MD LAB BLOOD ORDERABLES Final Result [facility] ([place]) 1 [facility] [place] [address] * CT Head WO Contrast (07/24/2024 8:42 AM ELECTRICAL ASSEMBLER) Anatomical Region Laterality Modality Head and Neck N/A Computed Tomogra phy 07/24/2024 9:55 AM ELECTRICAL ASSEMBLER Narrative 07/24/2024 9:56 AM ELECTRICAL ASSEMBLER EXAM DESCRIPTION: CT HEAD WO CONTRAST REASON [...] Opal Vidal D.O. PS: PS Report ID: [id number] Reading Location: [id number] Procedure Note Opal Vidal, DO - 07/24/2024 EXAM DESCRIPTION: CT HEAD [...] 9:56 AM - Electronically signed by Opal GarciaO. PS: PS Report ID: [id number] Reading Location: [id number] Greg Aguilar Jr., MD IMG CT PROCEDURES F inal Result * Differential, auto (07/24/2024 4:53 AM ELECTRICAL ASSEMBLER) Neutrophil abs 6.5 1.5 - 6.5 K/cumm [...] revised on 2017. Blood 07/24/2024 4:53 AM ELECTRICAL ASSEMBLER 07/24/2024 4:58 AM ELECTRICAL ASSEMBLER us Greg Aguilar Jr., MD LAB BLOOD ORDERABLE S Final Result [facility] ([place]) 1 [facility] Department [place] [address] * (ABNORMAL) CBC with auto differential (07/24/2024 4:53 AM ELECTRICAL ASSEMBLER) WBC 9.1 3.8 - 9.9 K/cumm Hgb [...] [facility] ([place]) Blood 07/24/2024 4:53 AM ELECTRICAL ASSEMBLER 07/24/2024 4:58 AM ELECTRICAL ASSEMBLER us Greg Aguilar Jr., MD LAB BLOOD ORDERABLE S Final Result [facility] [place]) 1 [facility] Department [place] [address] * XR Abdomen 1 View AP (07/23/2024 9:56 PM ELECTRICAL ASSEMBLER) Anatomical Region Laterality Modality Body, Abdomen N/A Computed Radiogr aphy 07/23/2024 10:4 3 PM ELECTRICAL ASSEMBLER Narrative 07/23/2024 10:43 PM ELECTRICAL ASSEMBLER EXAM DESCRIPTION: XR ABDOMEN AP 1 VIEW [...] Lizandro Morales M.D. KT: ITALIA Report ID: [id number] Reading Location: [id number] Procedure Note Lizandro Morales MD - 07/23/2024 [...] Electronically signed by Lizandro Morales M.D. KT: KT Report ID: [id number] Reading Location: [id number] Greg Aguilar Jr., MD IMG XR PROCEDURES F inal Result * POCT glucose (07/23/2024 8:51 PM ELECTRICAL ASSEMBLER) Glucose, POC 141 70 - 199 mg/dL Blood 07/23/2024 8:51 PM ELECTRICAL ASSEMBLER 07/23/2024 8:51 PM ELECTRICAL ASSEMBLER Greg Aguilar Jr., MD LAB POCT ORDERABLES - DEVICE Final Result [facility] [place]) 1 [facility] [place] [address] * eGFR (07/23/2024 4:47 AM ELECTRICAL ASSEMBLER) eGFR 69 >=60 mL/min/1. 73 m2 Comment: [...] last reviewed 2021. Blood 07/23/2024 4:47 AM ELECTRICAL ASSEMBLER 07/23/2024 5:00 AM ELECTRICAL ASSEMBLER Greg Aguilar Jr., MD LAB BLOOD ORDERABLE S Final Result Performing Organization Address [facility] Co de Phone Number [facility] ([place]) 1 [facility] [place] [employer] [place] [address] * (ABNORMAL) Hemoglobin A1c (07/23/2024 4:47 AM ELECTRICAL ASSEMBLER) Hgb A1C 6.2(H) 4.0 - 5.6 % Estimated Average Glucose 131 mg/dL [facility] ([place]) Comment: The ADA recommends reporting an estimated Average Glucose (eAG) with all Hemoglobin A1c results using the equation derived from a study of 507 normal and diabetic adults. Minority populations were underrepresented and children were not included. (Diabetes Care 31:0581-2748, 2008). The eAG is not equivalent to a fasting glucose. Blood 07/23/2024 4:47 AM ELECTRICAL ASSEMBLER 07/23/2024 4:59 AM ELECTRICAL ASSEMBLER Greg Aguilar Jr., MD LAB BLOOD ORDERABLE S Final Result Performing Organization Address [facility] de Phone Number [facility] ([place]) 1 [facility] [place] [employer] [place] [address] * (ABNORMAL) Basic metabolic panel (07/23/2024 4:47 AM ELECTRICAL ASSEMBLER) Sodium 139 135 - 145 mmol/L Potassium, pl 3.5 3.3 - 4.9 mmol/L [facility] ([place]) Chloride 108 97 - 110 mmol/L [facility] ([place]) CO2 23 22 - 32 mmol/L [facility] ([place]) Anion gap 9 2 - 15 mmol/L [facility] ([place]) BUN 35(H) 6 - 25 mg/dL [facility] ([place]) Creatinine 0.89 0.60 - 1.10 mg/dL [facility] ([place]) Glucose 133 70 - 199 mg/dL [facility] ([place]) Comment: Interpretive Data Fasting glucose [...] 2022. Calcium 8.2(L) 8.5 - 10.3 mg/dL [facility] ([place]) Blood 07/23/2024 4:47 AM ELECTRICAL ASSEMBLER 07/23/2024 5:00 AM ELECTRICAL ASSEMBLER Greg Aguilar Jr., MD LAB BLOOD ORDERABLE S Final Result Performing Organization Address [facility] de Phone Number [facility] ([place]) 1 [facility] [place] [address] * POCT glucose (07/23/2024 2:29 AM ELECTRICAL ASSEMBLER) Glucose, POC 157 70 - 199 mg/dL Comment:Glu2: RN/ Notified Blood 07/23/2024 2:29 AM ELECTRICAL ASSEMBLER 07/23/2024 2:29 AM ELECTRICAL ASSEMBLER Greg Aguilar Jr., MD LAB POCT ORDERABLES - DEVICE Final Result Performing Organization Address [facility] de Phone Number [facility] ([place]) 1 [facility] [place] [address] * POCT glucose (07/23/2024 12:25 AM ELECTRICAL ASSEMBLER) Glucose, POC 89 70 - 199 mg/dL Comment:Glu2: RN/ Notified Blood 07/23/2024 12:2 5 AM ELECTRICAL ASSEMBLER 07/23/2024 12:25 AM ELECTRICAL ASSEMBLER Greg Aguilar Jr., MD LAB POCT ORDERABLES - DEVICE Final Result Performing Organization Address [facility] Co de Phone Number [facility] ([place]) 1 [facility] [place] [place] [address] * (ABNORMAL) POCT glucose (07/22/2024 11:44 PM ELECTRICAL ASSEMBLER) Glucose, POC 63(L) 70 - 199 mg/dL Comment:Glu2: RN/ Notified Blood 07/22/2024 11:4 4 PM ELECTRICAL ASSEMBLER 07/22/2024 11:44 PM ELECTRICAL ASSEMBLER us Greg Aguilar Jr., MD LAB POCT ORDERABLES - DEVICE Final Result [facility] ([place]) 1 [facility] [place] [address] * (ABNORMAL) POCT glucose (07/22/2024 7:50 PM ELECTRICAL ASSEMBLER) Glucose, POC 200(H) 70 - 199 mg/dL Comment:Glu2: RN/ Notified Blood 07/22/2024 7:50 PM ELECTRICAL ASSEMBLER 07/22/2024 7:50 PM ELECTRICAL ASSEMBLER us Greg Aguilar Jr., MD LAB POCT ORDERABLES - DEVICE Final Result [facility] ([place]) 1 [facility] [place] [address] * POCT glucose (07/22/2024 4:11 PM ELECTRICAL ASSEMBLER) Glucose, POC 125 70 - 199 mg/dL Blood 07/22/2024 4:11 PM ELECTRICAL ASSEMBLER 07/22/2024 4:11 PM ELECTRICAL ASSEMBLER us Greg Aguilar Jr., MD LAB POCT ORDERABLES - DEVICE Final Result [facility] ([place]) 1 [facility] [place] [address] * POCT glucose (07/22/2024 11:50 AM ELECTRICAL ASSEMBLER) Glucose, POC 82 70 - 199 mg/dL Blood 07/22/2024 11:5 0 AM ELECTRICAL ASSEMBLER 07/22/2024 11:50 AM ELECTRICAL ASSEMBLER Greg Aguilar Jr., MD LAB POCT ORDERABLES - DEVICE Final Result Performing Organization Address City/[facility]/ZIP Co de Phone Number [facility] ([place]) [address] [place] [address] [place] [address] * POCT glucose (07/22/2024 7:56 AM ELECTRICAL ASSEMBLER) Glucose, POC 80 70 - 199 mg/dL Blood 07/22/2024 7:56 AM ELECTRICAL ASSEMBLER 07/22/2024 7:56 AM ELECTRICAL ASSEMBLER us Greg Aguilar Jr., MD LAB POCT ORDERABLES - DEVICE Final Result Performing Organization Address [facility] de Phone Number [facility] ([place]) [address] [place] [address] [place] [address] * eGFR (07/22/2024 5:51 AM ELECTRICAL ASSEMBLER) eGFR 65 >=60 mL/min/1. 73 m2 Comment: [...] last reviewed 2021. Blood 07/22/2024 5:51 AM ELECTRICAL ASSEMBLER 07/22/2024 5:56 AM ELECTRICAL ASSEMBLER Iam Savage MD LAB BLOOD ORDERABLES Final Resu lt Performing Organization Address [facility]/ZIP Co de Phone Number [facility] ([place]) 1 [facility] [place] [address] * Triglycerides (07/22/2024 5:51 AM ELECTRICAL ASSEMBLER) Triglycerides 114 <=149 mg/dL Comment: Interpretive Data [...] revised on 2018. Blood 07/22/2024 5:51 AM ELECTRICAL ASSEMBLER 07/22/2024 5:56 AM ELECTRICAL ASSEMBLER Jose L Bishop MD LAB BLOOD ORDERABLES Final Result Performing Organization Address [facility] Co de Phone Number [facility] ([place]) 1 [facility] [place] [address] * (ABNORMAL) Comprehensive metabolic panel (07/22/2024 5:51 AM ELECTRICAL ASSEMBLER) Sodium 142 135 - 145 mmol/L Potassium, pl 4.4 3.3 - 4.9 mmol/L [facility] ([place]) Chloride 106 97 - 110 mmol/L [facility] ([place]) CO2 24 22 - 32 mmol/L [facility] ([place]) Anion gap 12 2 - 15 mmol/L [facility] ([place]) BUN 41(H) 6 - 25 mg/dL [facility] ([place]) Creatinine 0.94 0.60 - 1.10 mg/dL [facility] ([place]) Glucose 114 70 - 199 mg/dL [facility] ([place]) [...] 8.6 8.5 - 10.3 mg/dL [facility] ([place]) Bilirubin, total 0.6 0.1 - 1.2 mg/dL [...] Slightly Hemolyzed Specimen Blood 07/22/2024 5:51 AM ELECTRICAL ASSEMBLER 07/22/2024 5:56 AM ELECTRICAL ASSEMBLER us Iam Savage MD LAB BLOOD ORDERABLES Final Resu lt [facility] ([place]) 1 [facility] Department of Laboratories [place] [address] * POCT glucose (07/22/2024 3:58 AM ELECTRICAL ASSEMBLER) Glucose, POC 78 70 - 199 mg/dL Blood 07/22/2024 3:58 AM ELECTRICAL ASSEMBLER 07/22/2024 3:58 AM ELECTRICAL ASSEMBLER us Greg Aguilar Jr., MD LAB POCT ORDERABLES - DEVICE Final Result Performing Organization Address [facility] Co de Phone Number LIZET RODRIGUES ([place]) 1 [facility] [place] [place] [address] * POCT glucose (07/22/2024 12:03 AM ELECTRICAL ASSEMBLER) Glucose, POC 152 70 - 199 mg/dL Blood 07/22/2024 12:0 3 AM ELECTRICAL ASSEMBLER 07/22/2024 12:03 AM ELECTRICAL ASSEMBLER us Greg Aguilar Jr., MD LAB POCT ORDERABLES - DEVICE Final Result Performing Organization Address [facility] de Phone Number LIZET RODRIGUES ([place]) 1 [facility] [place] [address] * POCT glucose (07/21/2024 7:55 PM ELECTRICAL ASSEMBLER) Glucose, POC 187 70 - 199 mg/dL Blood 07/21/2024 7:55 PM ELECTRICAL ASSEMBLER 07/21/2024 7:55 PM ELECTRICAL ASSEMBLER us Greg Aguilar Jr., MD LAB POCT ORDERABLES - DEVICE Final Result Performing Organization Address [facility] de Phone Number LIZET RODRIGUES ([place]) 1 [facility] [place] [address] * POCT glucose (07/21/2024 4:55 PM ELECTRICAL ASSEMBLER) Glucose, POC 140 70 - 199 mg/dL Blood 07/21/2024 4:55 PM ELECTRICAL ASSEMBLER 07/21/2024 4:55 PM ELECTRICAL ASSEMBLER Greg Aguilar Jr., MD LAB POCT ORDERABLES - DEVICE Final Result Performing Organization Address City/[facility] Co de Phone Number LIZET RODRIGUES ([place]) 1 [facility] [place] [address] * POCT glucose (07/21/2024 11:26 AM ELECTRICAL ASSEMBLER) Glucose, POC 81 70 - 199 mg/dL Blood 07/21/2024 11:2 6 AM ELECTRICAL ASSEMBLER 07/21/2024 11:26 AM ELECTRICAL ASSEMBLER us Greg Aguilar Jr., MD LAB POCT ORDERABLES - DEVICE Final Result LIZET RODRIGUES ([place]) 1 [facility] [place] [address] * POCT glucose (07/21/2024 7:56 AM ELECTRICAL ASSEMBLER) Glucose, POC 91 70 - 199 mg/dL Blood 07/21/2024 7:56 AM ELECTRICAL ASSEMBLER 07/21/2024 7:56 AM ELECTRICAL ASSEMBLER us Greg Aguilar Jr., MD LAB POCT ORDERABLES - DEVICE Final Result Performing Organization Address City/[facility]/ZIP Co de Phone Number LIZET RODRIGUES ([place]) 1 [facility] [place] [address] * POCT glucose (07/21/2024 4:02 AM ELECTRICAL ASSEMBLER) Glucose, POC 128 70 - 199 mg/dL Blood 07/21/2024 4:02 AM ELECTRICAL ASSEMBLER 07/21/2024 4:02 AM ELECTRICAL ASSEMBLER us Greg Aguilar Jr., MD LAB POCT ORDERABLES - DEVICE Final Result LIZET RODRIGUES ([place]) 1 [facility] [place] [address] * eGFR (07/21/2024 2:26 AM ELECTRICAL ASSEMBLER) eGFR 70 >=60 mL/min/1. 73 m2 Comment: [...] last reviewed 2021. Blood 07/21/2024 2:26 AM ELECTRICAL ASSEMBLER 07/21/2024 4:06 AM ELECTRICAL ASSEMBLER us Iam Savage MD LAB BLOOD ORDERABLES Final Resu lt [facility] ([place]) 1 [facility] [place] [address] * (ABNORMAL) Differential, auto (07/21/2024 2:26 AM ELECTRICAL ASSEMBLER) Neutrophil abs 8.7(H) 1.5 - 6.5 K/cumm [...] revised on 2017. Blood 07/21/2024 2:26 AM ELECTRICAL ASSEMBLER 07/21/2024 8:49 AM ELECTRICAL ASSEMBLER us Greg Aguilar Jr., MD LAB BLOOD ORDERABLE S Final Result LIZET RODRIGUES ([place]) 1 [facility] Department of Laboratories [place], [place] [id number] * (ABNORMAL) CBC with auto differential (07/21/2024 2:26 AM ELECTRICAL ASSEMBLER) WBC 9.7 3.8 - 9.9 K/cumm Hgb 10.8(L) 11.9 - 15.5 g/dL [facility]ET [facility] ([place]) Hct 35.0(L) 35.6 - 45.5 % CERNER [...] NRBC abs 0.00 0.00 - 0.01 K/cumm [facility] ([place]) Blood 07/21/2024 2:26 AM ELECTRICAL ASSEMBLER 07/21/2024 8:49 AM ELECTRICAL ASSEMBLER us Greg Aguilar Jr., MD LAB BLOOD ORDERABLE S Final Result [facility] ([place]) 1 [facility] Department [place] [address] * (ABNORMAL) Comprehensive metabolic panel (07/21/2024 2:26 AM ELECTRICAL ASSEMBLER) Sodium 141 135 - 145 mmol/L Potassium, [...] ([place]) Glucose 118 70 - 199 mg/dL [facility] ([place]) Comment: Interpretive Data Fasting glucose [...] 46(H) 7 - 45 Units/L [facility] ([place]) AST 36 10 - 45 Units/L [facility] ([place]) Comment:Slightly Hemolyzed S pecimen Blood 07/21/2024 2:26 AM ELECTRICAL ASSEMBLER 07/21/2024 4:06 AM ELECTRICAL ASSEMBLER us Iam Savage MD LAB BLOOD ORDERABLES Final Resu lt Performing Organization Address City/[facility]/ZIP Co de Phone Number LIZET RODRIGUES ([place]) 1 [facility] [employer] [place] [employer] [place] [address] * POCT glucose (07/20/2024 11:51 PM ELECTRICAL ASSEMBLER) Glucose, POC 103 70 - 199 mg/dL Blood 07/20/2024 11:5 1 PM ELECTRICAL ASSEMBLER 07/20/2024 11:51 PM ELECTRICAL ASSEMBLER us Greg Aguilar Jr., MD LAB POCT ORDERABLES - DEVICE Final Result LIZET RODRIGUES ([place]) 1 [facility] [place] [employer] [place] [address] * POCT glucose (07/20/2024 8:00 PM ELECTRICAL ASSEMBLER) Glucose, POC 110 70 - 199 mg/dL Blood 07/20/2024 8:00 PM ELECTRICAL ASSEMBLER 07/20/2024 8:00 PM ELECTRICAL ASSEMBLER Greg Aguilar Jr., MD LAB POCT ORDERABLES - DEVICE Final Result Performing Organization Address City/[facility]/ZIP Co de Phone Number LIZET RODRIGUES ([place]) 1 [facility] [place] [address] * POCT glucose (07/20/2024 4:03 PM ELECTRICAL ASSEMBLER) Glucose, POC 188 70 - 199 mg/dL Blood 07/20/2024 4:03 PM ELECTRICAL ASSEMBLER 07/20/2024 4:03 PM ELECTRICAL ASSEMBLER us Greg Aguilar Jr., MD LAB POCT ORDERABLES - DEVICE Final Result Performing Organization Address [facility] Co de Phone Number LIZET [facility] ([place]) 1 [facility] [place] [address] * POCT glucose (07/20/2024 11:23 AM ELECTRICAL ASSEMBLER) Glucose, POC 115 70 - 199 mg/dL Blood 07/20/2024 11:2 3 AM ELECTRICAL ASSEMBLER 07/20/2024 11:23 AM ELECTRICAL ASSEMBLER Iam Savage MD LAB POCT ORDERABLES - DEVICE Fi nal Result Performing Organization Address [facility]/ZIP Co de Phone Number LIZET [facility] ([place]) 1 [facility] [place] [address] * POCT glucose (07/20/2024 8:39 AM ELECTRICAL ASSEMBLER) Glucose, POC 89 70 - 199 mg/dL Blood 07/20/2024 8:39 AM ELECTRICAL ASSEMBLER 07/20/2024 8:39 AM ELECTRICAL ASSEMBLER Iam Savage MD LAB POCT ORDERABLES - DEVICE Fi nal Result Performing Organization Address [facility] Co de Phone Number LIZET Smith[place]) 1 [facility] [place] [address] * eGFR (07/20/2024 4:31 AM ELECTRICAL ASSEMBLER) eGFR 67 >=60 mL/min/1. 73 m2 Comment: [...] last reviewed 2021. Blood 07/20/2024 4:31 AM ELECTRICAL ASSEMBLER 07/20/2024 4:36 AM ELECTRICAL ASSEMBLER Iam Savage MD LAB BLOOD ORDERABLES Final Resu lt Performing Organization Address City/[facility]/ZIP Co de Phone Number LIZET RODRIGUES ([place]) 1 [facility] Department [place] [address] * (ABNORMAL) Comprehensive metabolic panel (07/20/2024 4:31 AM ELECTRICAL ASSEMBLER) Sodium 144 135 - 145 mmol/L Potassium, pl 5.1(H) 3.3 - 4.9 mmol/L [facility] ([place]) Chloride 105 97 - 110 mmol/L [facility] ([place]) CO2 27 22 - 32 mmol/L [facility] ([place]) Anion gap 12 2 - 15 mmol/L [facility] ([place]) BUN 51(H) 6 - 25 [...] [facility] ([place]) Blood 07/20/2024 4:31 AM ELECTRICAL ASSEMBLER 07/20/2024 4:36 AM ELECTRICAL ASSEMBLER us Iam Savage MD LAB BLOOD ORDERABLES Final Resu lt [facility] ([place]) 1 [facility] Department of Laboratories [place], [place] [id number] * POCT glucose (07/20/2024 4:18 AM ELECTRICAL ASSEMBLER) Glucose, POC 98 70 - 199 mg/dL Blood 07/20/2024 4:18 AM ELECTRICAL ASSEMBLER 07/20/2024 4:18 AM ELECTRICAL ASSEMBLER us Iam Savage MD LAB POCT ORDERABLES - DEVICE Fi nal Result LIZET RODRIGUES ([place]) 1 [facility] [place] [address] * POCT glucose (07/19/2024 11:45 PM ELECTRICAL ASSEMBLER) Glucose, POC 86 70 - 199 mg/dL Blood 07/19/2024 11:4 5 PM ELECTRICAL ASSEMBLER 07/19/2024 11:45 PM ELECTRICAL ASSEMBLER us Iam Savage MD LAB POCT ORDERABLES - DEVICE Fi nal Result Performing Organization Address [facility] Co de Phone Number LIZET RODRIGUES ([place]) 1 [facility] [place] [address] * POCT glucose (07/19/2024 8:40 PM ELECTRICAL ASSEMBLER) Glucose, POC 122 70 - 199 mg/dL Blood 07/19/2024 8:40 PM ELECTRICAL ASSEMBLER 07/19/2024 8:40 PM ELECTRICAL ASSEMBLER us Iam Savage MD LAB POCT ORDERABLES - DEVICE Fi nal Result Performing Organization Address City/[facility]/ZIP Co de Phone Number LIZET RODRIGUES ([place]) 1 [facility] [place] [address] * POCT glucose (07/19/2024 4:18 PM ELECTRICAL ASSEMBLER) Glucose, POC 120 70 - 199 mg/dL Blood 07/19/2024 4:18 PM ELECTRICAL ASSEMBLER 07/19/2024 4:18 PM ELECTRICAL ASSEMBLER us Iam Savage MD LAB POCT ORDERABLES - DEVICE Fi nal Result LIZET RODRIGUES ([place]) 1 [facility] [place] [address] * POCT glucose (07/19/2024 12:49 PM ELECTRICAL ASSEMBLER) Glucose, POC 125 70 - 199 mg/dL Blood 07/19/2024 12:4 9 PM ELECTRICAL ASSEMBLER 07/19/2024 12:49 PM ELECTRICAL ASSEMBLER Iam Savage MD LAB POCT ORDERABLES - DEVICE Fi nal Result [facility]ET [facility] ([place]) 1 [facility] [place] [address] * POCT glucose (07/19/2024 7:52 AM ELECTRICAL ASSEMBLER) Glucose, POC 160 70 - 199 mg/dL Blood 07/19/2024 7:52 AM ELECTRICAL ASSEMBLER 07/19/2024 7:52 AM ELECTRICAL ASSEMBLER Iam Savage MD LAB POCT ORDERABLES - DEVICE Fi nal Result Performing Organization Address City/[facility] Co de Phone Number LIZET [facility] ([place]) [address] [place] [address] [place] [address] * eGFR (07/19/2024 4:39 AM ELECTRICAL ASSEMBLER) eGFR 68 >=60 mL/min/1. 73 m2 Comment: [...] last reviewed 2021. Blood 07/19/2024 4:39 AM ELECTRICAL ASSEMBLER 07/19/2024 4:45 AM ELECTRICAL ASSEMBLER Iam Savage MD LAB BLOOD ORDERABLES Final Resu lt Performing Organization Address [facility]/ZIP Co de Phone Number LIZET [facility] ([place]) 1 [facility] [place] [address] * Triglycerides (07/19/2024 4:39 AM ELECTRICAL ASSEMBLER) Triglycerides 104 <=149 mg/dL Comment: Interpretive Data [...] revised on 2018. Blood 07/19/2024 4:39 AM ELECTRICAL ASSEMBLER 07/19/2024 4:45 AM ELECTRICAL ASSEMBLER Jose L Bishop MD LAB BLOOD ORDERABLES Final Result Performing Organization Address [facility]/ZIP Co de Phone Number LI[facility]ET [facility] ([place]) 1 [facility] [place] [address] * (ABNORMAL) Comprehensive metabolic panel (07/19/2024 4:39 AM ELECTRICAL ASSEMBLER) Sodium 140 135 - 145 mmol/L Potassium, pl 5.5(H) 3.3 - 4.9 mmol/L [facility] ([place]) Chloride 105 97 - 110 mmol/L [facility] ([place]) CO2 26 22 - 32 mmol/L [facility] ([place]) Anion gap 9 2 - 15 mmol/L [facility] ([place]) BUN 63(H) 6 - 25 mg/dL [facility] ([place]) Creatinine 0.90 0.60 - 1.10 mg/dL [facility] ([place]) Glucose 200(H) 70 - 199 mg/dL [facility] ([place]) [...] Hemolyzed S pecimen Blood 07/19/2024 4:39 AM ELECTRICAL ASSEMBLER 07/19/2024 4:45 AM ELECTRICAL ASSEMBLER us Iam Savage MD LAB BLOOD ORDERABLES Final Resu lt [facility] ([place]) 1 [facility] [place] [address] * POCT glucose (07/19/2024 4:38 AM ELECTRICAL ASSEMBLER) [facility] Signature Glucose, POC 186 70 - 199 mg/dL Blood 07/19/2024 4:38 AM ELECTRICAL ASSEMBLER 07/19/2024 4:38 AM ELECTRICAL ASSEMBLER us Iam Savage MD LAB POCT ORDERABLES - DEVICE Fi nal Result Performing Organization Address [facility] Co de Phone Number LIZET RODRIGUES ([place]) 1 [facility] [place] [address] * POCT glucose (07/18/2024 11:56 PM ELECTRICAL ASSEMBLER) Glucose, POC 176 70 - 199 mg/dL Blood 07/18/2024 11:5 6 PM ELECTRICAL ASSEMBLER 07/18/2024 11:56 PM ELECTRICAL ASSEMBLER us Iam Savage MD LAB POCT ORDERABLES - DEVICE Fi nal Result Performing Organization Address [facility] de Phone Number LIZET RODRIGUES ([place]) 1 [facility] [place] [address] * POCT glucose (07/18/2024 7:58 PM ELECTRICAL ASSEMBLER) Glucose, POC 165 70 - 199 mg/dL Blood 07/18/2024 7:58 PM ELECTRICAL ASSEMBLER 07/18/2024 7:58 PM ELECTRICAL ASSEMBLER Iam Savage MD LAB POCT ORDERABLES - DEVICE Fi nal Result Performing Organization Address [facility] Co de Phone Number LIZET [facility] ([place]) 1 [facility] [place] [address] * POCT glucose (07/18/2024 4:03 PM ELECTRICAL ASSEMBLER) Glucose, POC 195 70 - 199 mg/dL Blood 07/18/2024 4:03 PM ELECTRICAL ASSEMBLER 07/18/2024 4:03 PM ELECTRICAL ASSEMBLER us Iam Savage MD LAB POCT ORDERABLES - DEVICE Fi nal Result Performing Organization Address City/[facility] Co de Phone Number LIZET RODRIGUES ([place]) 1 [facility] [place] [address] * POCT glucose (07/18/2024 12:11 PM ELECTRICAL ASSEMBLER) Glucose, POC 160 70 - 199 mg/dL Blood 07/18/2024 12:1 1 PM ELECTRICAL ASSEMBLER 07/18/2024 12:11 PM ELECTRICAL ASSEMBLER Iam Savage MD LAB POCT ORDERABLES - DEVICE Fi nal Result Performing Organization Address [facility] Co de Phone Number LIZET RODRIGUES ([place]) 1 [place] [address] * POCT glucose (07/18/2024 8:58 AM ELECTRICAL ASSEMBLER) Glucose, POC 165 70 - 199 mg/dL Blood 07/18/2024 8:58 AM ELECTRICAL ASSEMBLER 07/18/2024 8:58 AM ELECTRICAL ASSEMBLER Iam Savage MD LAB POCT ORDERABLES - DEVICE Fi nal Result Performing Organization Address [facility] de Phone Number LIZET RODRIGUES ([place]) 1 [facility] [place] [address] * (ABNORMAL) Differential, auto (07/18/2024 6:46 AM ELECTRICAL ASSEMBLER) Neutrophil abs 6.8(H) 1.5 - 6.5 K/cumm [...] on 2017. Imm gran pct 1.6 % [facility] ([place]) Comment: Interpretive Data Percent cell [...] revised on 2017. Monocyte pct 6.2 % LIZET RODRIGUES ([place]) Comment: Interpretive Data Percent cell count [...] revised on 2017. Basophil pct 0.0 % AD[facility]ANNENER LILIA ([place]) Comment: Interpretive Data Percent cell count reference ranges are not reported, since discordance with absolute values may lead to misinterpretation of CBC data. Current Interpretive Data was last revised on 2017. Blood 07/18/2024 6:46 AM ELECTRICAL ASSEMBLER 07/18/2024 6:50 AM ELECTRICAL ASSEMBLER us Iam Savage MD LAB BLOOD ORDERABLES Final Resu lt LIZET RODRIGUES ([place]) 1 [facility] Department of Laboratories [place], [place] [id number] * (ABNORMAL) CBC with auto differential (07/18/2024 6:46 AM ELECTRICAL ASSEMBLER) WBC 8.1 3.8 - 9.9 K/cumm Hgb 9.5(L) 11.9 - 15.5 g/dL LIZET RODRIGUES ([place]) Hct 29.4(L) 35.6 - 45.5 % [facility] ([place]) Plt 256 150 - 400 K/cumm [facility] ([place]) MPV 10.9 9.1 - 12.3 fL [facility] ([place]) RBC 3.29(L) 3.90 - 5.20 M/cumm [facility] ([place]) MCV 89.4 81.3 - 96.4 fL [facility] ([place]) MCH 28.9 27.1 - 33.3 pg [facility] ([place]) MCHC 32.3 32.3 - 35.7 g/dL [facility] ([place]) RDW CV 14.7 11.1 - 14.9 % [facility] ([place]) RDW SD 47.9 35.7 - 48.1 fL [facility] ([place]) NRBC abs 0.00 0.00 - 0.01 K/cumm [facility] ([place]) Blood 07/18/2024 6:46 AM ELECTRICAL ASSEMBLER 07/18/2024 6:50 AM ELECTRICAL ASSEMBLER us Iam Savage MD LAB BLOOD ORDERABLES Final Resu lt LI[facility]ET [facility] ([place]) 1 [facility] [place] [address] * (ABNORMAL) eGFR (07/18/2024 3:30 AM ELECTRICAL ASSEMBLER) eGFR 54(L) >=60 mL/min/1. 73 m2 Comment: [...] last reviewed 2021. Blood 07/18/2024 3:30 AM ELECTRICAL ASSEMBLER 07/18/2024 4:05 AM ELECTRICAL ASSEMBLER us Iam Savage MD LAB BLOOD ORDERABLES Final Resu lt [facility] ([place]) 1 [facility] [place] [address] * (ABNORMAL) Comprehensive metabolic panel (07/18/2024 3:30 AM ELECTRICAL ASSEMBLER) Sodium 137 135 - 145 mmol/L Potassium, [...] [facility] ([place]) Blood 07/18/2024 3:30 AM ELECTRICAL ASSEMBLER 07/18/2024 4:05 AM ELECTRICAL ASSEMBLER Iam Savage MD LAB BLOOD ORDERABLES Final Resu lt LIZET RODRIGUES ([place]) 1 [facility] [place] [address] * (ABNORMAL) POCT glucose (07/18/2024 3:28 AM ELECTRICAL ASSEMBLER) Glucose, POC 200(H) 70 - 199 mg/dL Blood 07/18/2024 3:28 AM ELECTRICAL ASSEMBLER 07/18/2024 3:28 AM ELECTRICAL ASSEMBLER Iam Savage MD LAB POCT ORDERABLES - DEVICE Fi nal Result Performing Organization Address [facility]/ZIP Co de Phone Number LIZET RODRIGUES ([place]) 1 [facility] [place] [address] * POCT glucose (07/17/2024 11:55 PM ELECTRICAL ASSEMBLER) Glucose, POC 199 70 - 199 mg/dL Blood 07/17/2024 11:5 5 PM ELECTRICAL ASSEMBLER 07/17/2024 11:55 PM ELECTRICAL ASSEMBLER us Iam Savage MD LAB POCT ORDERABLES - DEVICE Fi nal Result LIZET RODRIGUES ([place]) 1 [facility] [place] [address] * POCT glucose (07/17/2024 8:42 PM ELECTRICAL ASSEMBLER) Glucose, POC 182 70 - 199 mg/dL Blood 07/17/2024 8:42 PM ELECTRICAL ASSEMBLER 07/17/2024 8:42 PM ELECTRICAL ASSEMBLER us Iam Savage MD LAB POCT ORDERABLES - DEVICE Fi nal Result Performing Organization Address City/[facility]/ZIP Co de Phone Number LIZET [facility] ([place]) 1 [facility] [place] [address] * POCT glucose (07/17/2024 4:20 PM ELECTRICAL ASSEMBLER) Glucose, POC 183 70 - 199 mg/dL Blood 07/17/2024 4:20 PM ELECTRICAL ASSEMBLER 07/17/2024 4:20 PM ELECTRICAL ASSEMBLER us Iam Savage MD LAB POCT ORDERABLES - DEVICE Fi nal Result Performing Organization Address [facility] Co de Phone Number LIZET [facility] ([place]) 1 [facility] [place] [address] * POCT glucose (07/17/2024 11:43 AM ELECTRICAL ASSEMBLER) Glucose, POC 160 70 - 199 mg/dL Blood 07/17/2024 11:4 3 AM ELECTRICAL ASSEMBLER 07/17/2024 11:43 AM ELECTRICAL ASSEMBLER us Iam Savage MD LAB POCT ORDERABLES - DEVICE Fi nal Result Performing Organization Address City/[facility] Co de Phone Number LIZET [facility] ([place]) 1 [facility] [place] [address] * POCT glucose (07/17/2024 7:22 AM ELECTRICAL ASSEMBLER) Glucose, POC 143 70 - 199 mg/dL Blood 07/17/2024 7:22 AM ELECTRICAL ASSEMBLER 07/17/2024 7:22 AM ELECTRICAL ASSEMBLER us Iam Savage MD LAB POCT ORDERABLES - DEVICE Fi nal Result Performing Organization Address [facility] Co de Phone Number LIZET RODRIGUES ([place]) 1 [facility] [place] [address] * POCT glucose (07/17/2024 3:24 AM ELECTRICAL ASSEMBLER) Glucose, POC 146 70 - 199 mg/dL Blood 07/17/2024 3:24 AM ELECTRICAL ASSEMBLER 07/17/2024 3:24 AM ELECTRICAL ASSEMBLER us Iam Savage MD LAB POCT ORDERABLES - DEVICE Fi nal Result Performing Organization Address [facility] Co de Phone Number LIZET RODRIGUES ([place]) 1 [facility] [place] [address] * (ABNORMAL) eGFR (07/17/2024 3:23 AM ELECTRICAL ASSEMBLER) eGFR 58(L) >=60 mL/min/1. 73 m2 Comment: [...] last reviewed 2021. Blood 07/17/2024 3:23 AM ELECTRICAL ASSEMBLER 07/17/2024 3:42 AM ELECTRICAL ASSEMBLER us Iam Savage MD LAB BLOOD ORDERABLES Final Resu lt Performing Organization Address [facility]/ZIP Co de Phone Number [facility] ([place]) 1 [facility] [place] [address] * (ABNORMAL) Comprehensive metabolic panel (07/17/2024 3:23 AM ELECTRICAL ASSEMBLER) Sodium 135 135 - 145 mmol/L Potassium, [...] 155 70 - 199 mg/dL [facility] ([place]) Comment: Interpretive Data Fasting glucose >/= 126 [...] 1.2 mg/dL [facility] ([place]) Protein, pl 5.4(L) 6.5 - 8.5 g/dL [facility] ([place]) Albumin 2.2(L) 3.5 - 5.0 g/dL [facility] ([place]) Alk phos 90 40 - 130 Units/L [facility] ([place]) ALT 53(H) 7 - 45 Units/L [facility] ([place]) AST 53(H) 10 - 45 Units/L [facility] ([place]) Comment:Slightly Hemolyzed S pecimen Blood 07/17/2024 3:23 AM ELECTRICAL ASSEMBLER 07/17/2024 3:42 AM ELECTRICAL ASSEMBLER us Iam Savage MD LAB BLOOD ORDERABLES Final Resu lt LIZET RODRIGUES ([place]) 1 [facility] [place] [address] * POCT glucose (07/16/2024 11:22 PM ELECTRICAL ASSEMBLER) Glucose, POC 150 70 - 199 mg/dL Blood 07/16/2024 11:2 2 PM ELECTRICAL ASSEMBLER 07/16/2024 11:22 PM ELECTRICAL ASSEMBLER us Iam Savage MD LAB POCT ORDERABLES - DEVICE Fi nal Result Performing Organization Address City/[facility]/ZIP Co de Phone Number LIZET RODRIGUES ([place]) 1 [facility] [place] [address] * POCT glucose (07/16/2024 7:18 PM ELECTRICAL ASSEMBLER) Glucose, POC 164 70 - 199 mg/dL Blood 07/16/2024 7:18 PM ELECTRICAL ASSEMBLER 07/16/2024 7:18 PM ELECTRICAL ASSEMBLER us Iam Savage MD LAB POCT ORDERABLES - DEVICE Fi nal Result LIZET RODRIGUES ([place]) 1 [facility] [place] [address] * POCT glucose (07/16/2024 5:12 PM ELECTRICAL ASSEMBLER) Glucose, POC 176 70 - 199 mg/dL Blood 07/16/2024 5:12 PM ELECTRICAL ASSEMBLER 07/16/2024 5:12 PM ELECTRICAL ASSEMBLER us Iam Savage MD LAB POCT ORDERABLES - DEVICE Fi nal Result LIZET RODRIGUES ([place]) 1 [facility] [place] [address] * POCT glucose (07/16/2024 12:20 PM ELECTRICAL ASSEMBLER) Glucose, POC 159 70 - 199 mg/dL Blood 07/16/2024 12:2 0 PM ELECTRICAL ASSEMBLER 07/16/2024 12:20 PM ELECTRICAL ASSEMBLER Iam Savage MD LAB POCT ORDERABLES - DEVICE Fi nal Result [facility] ([place]) 1 [facility] [place] [address] * POCT glucose (07/16/2024 8:46 AM ELECTRICAL ASSEMBLER) Glucose, POC 134 70 - 199 mg/dL Blood 07/16/2024 8:46 AM ELECTRICAL ASSEMBLER 07/16/2024 8:46 AM ELECTRICAL ASSEMBLER Iam Savage MD LAB POCT ORDERABLES - DEVICE Fi nal Result Performing Organization Address [facility] Co de Phone Number [facility] ([place]) 1 [facility] [place] [address] * (ABNORMAL) eGFR (07/16/2024 3:22 AM ELECTRICAL ASSEMBLER) eGFR 58(L) >=60 mL/min/1. 73 m2 Comment: [...] last reviewed 2021. Blood 07/16/2024 3:22 AM ELECTRICAL ASSEMBLER 07/16/2024 3:46 AM ELECTRICAL ASSEMBLER Iam Savage MD LAB BLOOD ORDERABLES Final Resu lt Performing Organization Address City/[facility]/ZIP Co de Phone Number [facility] ([place]) 1 [facility] [place] [address] * POCT glucose (07/16/2024 3:22 AM ELECTRICAL ASSEMBLER) Glucose, POC 172 70 - 199 mg/dL Blood 07/16/2024 3:22 AM ELECTRICAL ASSEMBLER 07/16/2024 3:22 AM ELECTRICAL ASSEMBLER Iam Savage MD LAB POCT ORDERABLES - DEVICE Fi nal Result Performing Organization Address [facility] Co de Phone Number LIZET RODRIGUES ([place]) 1 [facility] [place] [address] * (ABNORMAL) Triglycerides (07/16/2024 3:22 AM ELECTRICAL ASSEMBLER) Triglycerides 210(H) <=149 mg/dL Comment: Interpretive Data [...] revised on 2018. Blood 07/16/2024 3:22 AM ELECTRICAL ASSEMBLER 07/16/2024 3:46 AM ELECTRICAL ASSEMBLER Jose L Bishop MD LAB BLOOD ORDERABLES Final Result LIZET RODRIGUES ([place]) 1 [facility] [place] [address] * (ABNORMAL) Comprehensive metabolic panel (07/16/2024 3:22 AM ELECTRICAL ASSEMBLER) Sodium 139 135 - 145 mmol/L Potassium, [...] ([place]) AST 98(H) 10 - 45 Units/L LIZET RODRIGUES ([place]) Blood 07/16/2024 3:22 AM ELECTRICAL ASSEMBLER 07/16/2024 3:46 AM ELECTRICAL ASSEMBLER us Iam Savage MD LAB BLOOD ORDERABLES Final Resu lt LIZET RODRIGUES ([place]) 1 [facility] [place] [place] [address] * Dexa Axial Skeleton Bone Density 1 [...] NOT ELSEWHERE CLASSIFIED Osteoporosis screening Post menopausal C Application Developer/Model: [employer] ([id number]) CLINICAL INFORMATION: Current height: 60 inches Maximum [...] Billy Nam M.D. MF: JOSE Report ID: [id number] Reading Location: [place] [address] Procedure Note Billy Nam MD - 03/09/2023 EXAM DESCRIPTION: DEXA AXIAL SKELETON BONE DENSITY 1 OR MORE SITES REASON FOR STUDY: 72 y/o year old F with given history of: OTHER SPECIFIED PERSONAL RISK FACTORS, NOT ELSEWHERE CLASSIFIED Osteoporosis screening Post menopausal C Application Developer/Model: [employer] ([id number]) CLINICAL INFORMATION: Current height: 60 inches Maximum [...] Billy Nam M.D. MF: JOSE Report ID: [id number] Reading Location: [place] [address] Saulo Chin MD IMG DXA PROCEDURES Final [...] either breast on mammogram. Saulo Chin MD IM MAMMO PROCEDURES Final Re sult from Last 3 Months or Most Recently Relevant to Health Maintenance Insurance MEDICARE COMMERCIAL GENERIC MEDICARE AETNA SENIOR SUPPLEMENT AETNA [facility] ADVANTRA Advance Directives For more information, please contact: [phone] Documents on File Type Date Recorded Patient Textile Science Technician Expl anation ADVANCE DIRECTIVE 07/21/2024 10:21 AM Nam r of Gas Mask Assembler-Medical * Full Code (Latest Code Status on File) Date Activated Date Inactivated Comments 07/10/2024 7:21 PM 07/28/2024 8:46 PM Care Teams Paint Sprayer Sandblaster Relationship Specialty Start Date End Date Saulo Chin MD PCP - General 05/29/19
--- OUTSIDE RECORDS SUMMARY | 2024-10-14 14:59 | XMS_ITS | CONTINUITY OF CARE DOCUMENT ---
Author Name fernando king Address Unknown Organization [facility] [place] Office Address [address] [address] [place] [address] Phone [phone] Care Team Providers Care White Sugar Syrup Operator Name Role Phone fernando king Unavailable Unavailable
[2024-10-14 15:17] LABS: EDUAAPPEAR Cloudy; EDUABILI Negative (Negative); EDUABLOOD Negative (Negative); EDUACOLOR1 Yellow; EDUAGLUCOSE Negative (Negative); EDUAKETONE Negative (Negative); EDUALEUKO 1+ (Negative); EDUANITRATE Positive (Negative); EDUAPROTEIN 1+ (Negative); EDUAUROBILI 0.2
--- NOTE | 2024-10-14 15:34 | ED_ITS ---
HPI - General Adult General Chief complaint: Urogenital-Female Stated complaint: Urinary Problems Source: patient Mode of arrival: ambulatory Limitations: no limitations History of Present Illness HPI narrative: Patient presents for evaluation of urinary frequency for the last few weeks. She denies any fever, abdominal pain, low back pain, dysuria, hematuria, urinary urgency hesitancy. She has experienced some chills and nausea. She believes she has a UTI. Related Data Home Medications ?Medication ?Instructions ?Recorded ?Confirmed ?Last Taken ?Type alendronate 70 mg tablet 70 mg PO WEEKLY 05/06/21 Unknown History atorvastatin 20 mg tablet 20 mg PO DAILY 05/06/21 Unknown History famotidine 20 mg tablet 20 mg PO QHS 05/06/21 Unknown History metoprolol succinate 50 mg 50 mg PO BID 05/06/21 Unknown History tablet,extended release 24 hr amlodipine 10 mg tablet mg 10/14/24 Unknown History ergocalciferol (vitamin D2) 1,250 10/14/24 Unknown History mcg (50,000 unit) capsule ipratropium 0.5 mg-albuterol 3 mg ml inhalation 10/14/24 Unknown History (2.5 mg base)/3 mL nebulization soln lisinopril 40 mg tablet mg 10/14/24 Unknown History trazodone 50 mg tablet mg 10/14/24 Unknown History Allergies Allergy/AdvReac Type Severity Reaction Status Date / Time No Known Allergies Allergy Verified 10/14/24 15:04 Review of Systems Review of Systems: CONSTITUTIONAL: Reports chills. Denies fever or sweats. EYES: Denies visual changes, redness, or discharge. ENT: Denies rhinorrhea, congestion, sore throat, or otalgia. CARDIOVASCULAR: Denies chest pain, palpitations, or edema. RESPIRATORY: Denies cough or dyspnea. GASTROINTESTINAL: Reports nausea. Denies abdominal pain, vomiting, or diarrhea. GENITOURINARY: Reports urinary frequency. Denies dysuria, urinary urgency, hesitance or hematuria SKIN: Denies rash or itching. MUSCULOSKELETAL: Denies back pain, joint pain, or myalgia. NEUROLOGIC: Denies headache, numbness, dizziness, or weakness. PSYCHIATRIC: Denies anxiety or depression. [facility] Past Medical History Medical History Vitamin D deficiency GERD (gastroesophageal reflux disease) Hyperlipidemia Osteoporosis Surgical History Surgical History No pertinent past surgical history Family History Family History Father Heart disease Mother Cerebrovascular accident Sibling Ovarian cancer Other Diabetes mellitus Social History Social History Smoking status: Current every day smoker Tobacco type: cigarettes Alcohol intake: never Substance use: never Substance use type: does not use Exam Narrative: GENERAL: Well-appearing, well-nourished, and in no acute distress. HEAD: Normocephalic, atraumatic. EYES: PERRLA and EOMI. ENT: Nares clear, no rhinorrhea or epistaxis. Mucous membranes moist. Oropharynx without tonsillar hypertrophy exudate or other lesions. Bilateral TMs pearly bell nonbulging NECK: Supple. No adenopathy or masses. No carotid bruits or JVD CHEST: Clear to auscultation. No respiratory distress. No wheezes rales or rhonchi HEART: Regular rate and rhythm. No murmur heard. Normal peripheral pulses. ABDOMEN: Soft, nontender, nondistended, normal active bowel sounds. BACK: No CVA tenderness EXTREMITIES: Normal range of motion. No edema. SKIN: Warm, dry, no rash. NEURO: No focal deficits. Alert and oriented x3. PSYCH: Normal mood and affect. Course Course Emergency Course: This is a 73-year-old female who presented for evaluation of urinary symptoms. Urine today is nitrite positive. Will send urine culture. Will dc with bactrim. She indicates her renal function is normal. Increase hydration. Follow up with primary provider. Go to the ER for worsening symptoms. Patient in agreement with plan of care. Level of Care: Express Care Visit Medical Decision Making Lab Data Labs: Lab Results 10/14/24 Range/Units 15:15 POC Urine Color Yellow POC Urine Clarity Cloudy POC Urine pH 6.0 POC Ur Specif [place] 1.020 POC Urine Protein 1+ (Negative) POC Ur Glucose (UA) Negative (Negative) POC Urine Ketones Negative (Negative) POC Urine Blood Negative (Negative) POC Urine Nitrite Positive (Negative) POC Urine Bilirubin Negative (Negative) POC Urine Urobilinogen 0.2 POC U Leukocyte Esteras 1+ (Negative) Discharge Plan Discharge Clinical Impression: Urinary tract infection Patient Disposition: Home, Self-Care Condition: Stable Instructions: Antibiotic Form, Urinary Tract Infection in Women (ED) Patient Language: Uzbek Prescriptions: New sulfamethoxazole-trimethoprim [Bactrim DS] 800-160 mg tablet 1 tablet PO Q12H Qty: 14 0RF No Action ipratropium-albuterol 0.5 mg-3 mg(2.5 mg base)/3 mL solution for nebulization INHALATION trazodone 50 mg tablet amlodipine 10 mg tablet ergocalciferol (vitamin D2) 1,250 mcg (50,000 unit) capsule lisinopril 40 mg tablet metoprolol succinate 50 mg tablet extended release 24 hr 50 mg PO BID famotidine 20 mg tablet 20 mg PO QHS atorvastatin 20 mg tablet 20 mg PO DAILY alendronate 70 mg tablet 70 mg PO WEEKLY Follow-up/Referrals: Giuseppe,Saulo Julien MD [Primary Care Provider] - Time of Disposition: 15:33
== END 2024-10-14 15:38 | disposition home or self-care (01) ==
PROVIDERS: Emergency Provider Nurse Practitioner; PCP Family Medicine
DX: N39.0 Urinary tract infection, site not specified (principal); B96.1 Klebsiella pneumoniae [K. pneumoniae] as the cause of diseases classified elsewhere; F17.210 Nicotine dependence, cigarettes, uncomplicated; K21.9 Gastro-esophageal reflux disease without esophagitis; E78.5 Hyperlipidemia, unspecified; M81.0 Age-related osteoporosis without current pathological fracture
CPT/HCPCS: 81003; 87086; 87186; 99213; G0463